=== PATIENT | female | born 1965 | race Hispanic/Latino ===

== ENCOUNTER 2019-06-23 15:24 | Emergency (ER) | payer OTHER ==
[2019-06-23] MEDS ORDERED: SODIUM CHLORIDE 0.9% 1000ML 1,000 ML IV ONE (16:15)
[2019-06-23] MEDS ORDERED: DiphenhydrAMINE HCL 50 MG/ML VIAL ONE (16:15)
[2019-06-23 16:19] LABS: BASOPHILS % (AUTO) 0.7 % (0.0-5.0); EOSINOPHILS % (AUTO) 1.9 % (0.0-8.0); HEMATOCRIT 37.6 % (36-48); LYMPHOCYTES % (AUTO) 14.8 % (21.0-51.0); MEAN CORPUSCULAR HEMOGLOBIN 28.2 pg (27.0-33.0); MEAN CORPUSCULAR HGB CONC 33.1 g/dL (32.0-36.0); MEAN CORPUSCULAR VOLUME 85.2 fL (79-99); MONOCYTES % (AUTO) 5.5 % (3.0-13.0); NEUTROPHILS % (AUTO) 77.1 % (40.0-77.0); PLATELET COUNT (AUTO) 215 K/uL (130-400); RED BLOOD CELL COUNT(AUTO) 4.41 MIL/uL (4.00-5.50); RED CELL DISTRIBUTION WIDTH 13.7 % (11.0-15.5); WHITE BLOOD COUNT (AUTO) 8.1 K/uL (4.8-10.8)
[2019-06-23 16:29] LABS: CREATININE 1.3 mg/dL (0.5-1.5); POTASSIUM 4.4 mmol/L (3.5-5.1)
[2019-06-23] MEDS ORDERED: INSULIN HUMULIN R 100 UNIT/ML 3ML ONE (16:29)
[2019-06-23 16:33] LABS: BILIRUBIN,TOTAL 0.4 mg/dL (0.2-1.0); TOTAL PROTEIN, SERUM 7.7 g/dL (6.0-8.3)
[2019-06-23 16:33] LABS: APPEARANCE,URINE Cloudy (CLEAR); BILIRUBIN,URINE Negative (NEGATIVE); COLOR,URINE Yellow (YELLOW); GLUCOSE, URINE (UA) >=1000 mg/dL (NEGATIVE); KETONES,URINE Negative (NEGATIVE); LEUKOCYTE ESTERASE ,URINE Negative (NEGATIVE); NITRATE,URINE Positive (NEGATIVE); OCCULT BLOOD,URINE Small (NEGATIVE); PH,URINE 5.5 (5.0-8.0); PROTEIN,URINE 300 mg/dL (NEGATIVE); UROBILINOGEN,URINE 0.2 mg/dL (0.2-1.0)
[2019-06-23 16:50] LABS: BACTERIA,URINE Few /HPF (None Seen); SQUAMOUS EPITHELIAL CELL,UR Few /HPF (0-2); WBC,URINE 0-1 /HPF (0-1); YEAST,URINE BUDDING Few /HPF (None Seen)
== END 2019-06-23 18:45 | disposition home or self-care (01) ==
LOC: EDH 15:24
DX: L95.9 Vasculitis limited to the skin, unspecified (principal); T36.0X5A Adverse effect of penicillins, initial encounter; L98.498 Non-pressure chronic ulcer of skin of other sites with other specified severity; E11.65 Type 2 diabetes mellitus with hyperglycemia; I10 Essential (primary) hypertension; Z88.1 Allergy status to other antibiotic agents; Y92.89 Other specified places as the place of occurrence of the external cause
CPT/HCPCS: 36415; 80053; 81001; 82948 ×2; 85025; 86592; 87040 ×2; 96361; 96374; 96375; 99284; J1200; J1815; J7030

== ENCOUNTER 2019-06-29 22:38 | Emergency (ER) | payer OTHER ==
[2019-06-29 23:35] LABS: BASOPHILS % (AUTO) 0.2 % (0.0-5.0); EOSINOPHILS % (AUTO) 1.8 % (0.0-8.0); HEMATOCRIT 35.2 % (36-48); LYMPHOCYTES % (AUTO) 20.1 % (21.0-51.0); MEAN CORPUSCULAR HEMOGLOBIN 27.6 pg (27.0-33.0); MEAN CORPUSCULAR HGB CONC 32.1 g/dL (32.0-36.0); MEAN CORPUSCULAR VOLUME 86.1 fL (79-99); MONOCYTES % (AUTO) 5.2 % (3.0-13.0); NEUTROPHILS % (AUTO) 72.4 % (40.0-77.0); PLATELET COUNT (AUTO) 248 K/uL (130-400); RED BLOOD CELL COUNT(AUTO) 4.09 MIL/uL (4.00-5.50); RED CELL DISTRIBUTION WIDTH 13.2 % (11.0-15.5); WHITE BLOOD COUNT (AUTO) 10.3 K/uL (4.8-10.8)
[2019-06-29 23:45] LABS: CREATININE 2.5 mg/dL (0.5-1.5); POTASSIUM 4.1 mmol/L (3.5-5.1)
[2019-06-29 23:49] LABS: ALBUMIN 2.7 g/dL (3.5-5.0); BILIRUBIN,TOTAL 0.2 mg/dL (0.2-1.0)
[2019-06-30] MEDS ORDERED: SODIUM CHLORIDE 0.9% 1000ML 1,000 ML IV ONE (00:40)
== END 2019-06-30 01:49 | disposition home or self-care (01) ==
LOC: EDH 22:38 → EEVIPCON 22:38 → EDH 06-30 01:49
DX: K52.9 Noninfective gastroenteritis and colitis, unspecified (principal); K62.5 Hemorrhage of anus and rectum; E11.9 Type 2 diabetes mellitus without complications; I10 Essential (primary) hypertension; Z88.1 Allergy status to other antibiotic agents; Z98.890 Other specified postprocedural states
CPT/HCPCS: 36415; 74176; 80053; 83690; 85025; 93005; 96360; 99285; J7030

== ENCOUNTER 2020-03-01 20:40 | Inpatient (IN) | payer OTHER ==
[~2020-03-01] VITALS: Ht 162.6 cm; Wt 151.8 kg
[2020-03-01 22:23] LABS: BASOPHILS % (AUTO) 0.2 % (0.0-5.0); HEMATOCRIT 26.9 % (36-48); LYMPHOCYTES % (AUTO) 2.3 % (21.0-51.0); MEAN CORPUSCULAR HGB CONC 32.7 g/dL (32.0-36.0); MEAN CORPUSCULAR VOLUME 79.6 fL (79-99); MONOCYTES % (AUTO) 2.7 % (3.0-13.0); NEUTROPHILS % (AUTO) 91.3 % (40.0-77.0); PLATELET COUNT (AUTO) 494 K/uL (130-400); RED BLOOD CELL COUNT(AUTO) 3.38 MIL/uL (4.00-5.50); RED CELL DISTRIBUTION WIDTH 15.2 % (11.0-15.5)
[2020-03-01 22:27] LABS: INR 1.21 (0.85-1.15); PARTIAL THROMBOPLASTIN TIME 37.1 SEC (26.3-35.5)
[2020-03-01 22:28] LABS: WHITE BLOOD COUNT (AUTO) 41.9 K/uL (4.8-10.8)
[2020-03-01] MEDS ORDERED: CLINDAMYCIN 900 MG/D5% WATER 50 ML IV ONE (22:30)
[2020-03-01 22:35] LABS: APPEARANCE,URINE CLOUDY (CLEAR); BILIRUBIN,URINE SMALL (NEGATIVE); COLOR,URINE YELLOW (YELLOW); GLUCOSE, URINE (UA) 500 mg/dL (NEGATIVE); KETONES,URINE 5 mg/dL (NEGATIVE); LEUKOCYTE ESTERASE ,URINE TRACE (NEGATIVE); NITRATE,URINE NEGATIVE (NEGATIVE); OCCULT BLOOD,URINE MODERATE (NEGATIVE); PH,URINE 5.5 (5.0-8.0); PROTEIN,URINE >=300 mg/dL (NEGATIVE)
[2020-03-01 22:46] LABS: BACTERIA,URINE Moderate /HPF (None Seen)
[2020-03-01 22:47] LABS: AMORPHOUS SEDIMENT,UR Few /LPF (None Seen); SQUAMOUS EPITHELIAL CELL,UR Few /HPF (0-2)
[2020-03-01 22:49] LABS: ALANINE AMINOTRANSFERASE 17 U/L (12-78); ASPARTATE AMINOTRANSFERASE 26 U/L (10-37); BILIRUBIN,TOTAL 0.7 mg/dL (0.2-1.0); CARBON DIOXIDE 19 mmol/L (21-32); CHLORIDE 96 mmol/L (101-111); CREATINE KINASE, TOTAL 59 U/L (21-232); CREATININE 4.2 mg/dL (0.5-1.5); GLOMERULAR FILTR. RATE CALC 12 mL/min (>60); GLUCOSE,RANDOM 283 mg/dL (70-105); MYOGLOBIN 214 ng/mL (10-92); POTASSIUM 4.1 mmol/L (3.5-5.1); SODIUM SERUM 128 mmol/L (136-145); TOTAL PROTEIN, SERUM 7.3 g/dL (6.0-8.3); TROPONIN I < 0.04 ng/mL (0.00-0.06)
[2020-03-01 22:51] LABS: UREA NITROGEN, BLOOD 76 mg/dL (7-18)
[2020-03-01 22:52] LABS: BAND NEUTROPHILS % (MANUAL) 6 % (0-2); LYMPHOCYTES % (MANUAL) 2 % (22-44); MAN.DIFF COMMENT-IMPRESSION MANUAL DIFFERENTIAL; MONOCYTES % (MANUAL) 2 % (2-9); SEGMENTED NEUTROPHILS % 90 % (40-70)
[2020-03-01 22:54] LABS: PLATELET MORPHOLOGY COMMENT PLT CLUMPS PRESENT
[2020-03-01] MEDS ORDERED: MORPHINE SULFATE 4 MG/1ML SYG ONE (23:06)
[2020-03-01] MEDS ORDERED: ONDANSETRON HCL 4 MG/2 ML VIAL ONE (23:06)
[2020-03-01] MEDS ORDERED: CEFTRIAXONE SODIUM 2 GM VIAL ONE (23:16)
[2020-03-01] MEDS ORDERED: TETANUS/DIPHTHERIA TOXOID [ADULT] 0.5 ML VIAL IM ONE (23:16)
[2020-03-01] MEDS ORDERED: SODIUM CHLORIDE 0.9% 500ML 500 ML IV PRN (23:30)
[2020-03-01] MEDS ORDERED: ONDANSETRON HCL 4 MG/2 ML VIAL IVP PRN (23:30)
[2020-03-01] MEDS ORDERED: DOCUSATE SODIUM 100 MG CAP PO PRN (23:30)
[2020-03-01] MEDS: HEPARIN SODIUM 5000UNIT/ML 1ML VIAL SQ SCH (23:30)
[2020-03-01] MEDS ORDERED: LACTULOSE 20 GM/30 ML UDCUP PO PRN (23:30)
[2020-03-01] MEDS ORDERED: HYDRALAZINE HCL 20 MG/ML VIAL IV PRN (23:30)
[2020-03-01] MEDS ORDERED: ACETAMINOPHEN 325 MG TAB PO PRN (23:30)
[2020-03-01] MEDS ORDERED: MORPHINE SULFATE 2 MG/ML 1ML SYG IVP PRN (23:30)
[2020-03-02] VITALS (15 sets, daily range): BP systolic 100–141; BP diastolic 36–88
[2020-03-02] MEDS ORDERED: MEROPENEM 1 GM VIAL ONE (00:04)
[2020-03-02] MEDS ORDERED: DiphenhydrAMINE HCL 50 MG/ML VIAL ONE (00:16)
[2020-03-02 00:26] LABS: ABG BASE EXCESS -8.7 mmol/L (-2.0-3.0); ABG HCO3 15.6 mmol/L (21.0-28.0); ABG PCO2 30 mmHg (32-45)
[2020-03-02] MEDS: MEROPENEM 500 MG VIAL IVP SCH ×2 (01:00→12:57)
[2020-03-02 04:40] LABS: BASOPHILS % (AUTO) 0.2 % (0.0-5.0); EOSINOPHILS % (AUTO) 0.1 % (0.0-8.0); HEMATOCRIT 25.6 % (36-48); LYMPHOCYTES % (AUTO) 3.1 % (21.0-51.0); MEAN CORPUSCULAR HEMOGLOBIN 26.1 pg (27.0-33.0); MEAN CORPUSCULAR HGB CONC 32.8 g/dL (32.0-36.0); MEAN CORPUSCULAR VOLUME 79.5 fL (79-99); MONOCYTES % (AUTO) 3.8 % (3.0-13.0); NEUTROPHILS % (AUTO) 87.8 % (40.0-77.0); PLATELET COUNT (AUTO) 455 K/uL (130-400); RED BLOOD CELL COUNT(AUTO) 3.22 MIL/uL (4.00-5.50); RED CELL DISTRIBUTION WIDTH 15.3 % (11.0-15.5)
[2020-03-02 04:45] LABS: WHITE BLOOD COUNT (AUTO) 43.2 K/uL (4.8-10.8)
[2020-03-02 05:08] LABS: MAGNESIUM 1.8 mg/dL (1.80-2.40); PHOSPHORUS 5.4 mg/dL (2.5-4.9)
--- NOTE | 2020-03-02 08:05 | NUR ---
RECEIVED PT FROM ER VIA STRETCHER AND PT WAS ADVISED OF POSSIBLE FURTHER PROCEDURES AND WAS ADVISED OF HAVING TO CONNECT HER TO MONITOR. PT VERBALIZED UNDERSTANDING.
[2020-03-02] MEDS: FAMOTIDINE 20MG TAB 20 MG TAB PO SCH ×2 (09:37→09:40)
[2020-03-02] MEDS: CLINDAMYCIN 900 MG/D5% WATER 50 ML IV SCH ×4 (09:40→23:42)
[2020-03-02] MEDS: HEPARIN SODIUM 5000UNIT/ML 1ML VIAL SQ SCH ×2 (09:42→20:11)
[2020-03-02] MEDS: LINEZOLID 600 MG/ISO-OSM 300 ML IV SCH (13:00)
[2020-03-02] MEDS ORDERED: CHOL200026 PO (14:33)
[2020-03-02] MEDS ORDERED: METF-446 PO (14:37)
[2020-03-02] MEDS ORDERED: GLIP10TA9 PO (14:37)
[2020-03-02] MEDS ORDERED: METO25TA6 PO (14:37)
[2020-03-02] MEDS ORDERED: LEVO50 PO (14:41)
[2020-03-02] MEDS ORDERED: HYDR12.54 PO (14:41)
[2020-03-02 16:39] LABS: CREATINE KINASE, TOTAL 30 U/L (21-232); MYOGLOBIN 143 ng/mL (10-92); TROPONIN I < 0.04 ng/mL (0.00-0.06)
--- NOTE | 2020-03-02 17:00 | NUR ---
PT REPORT GIVEN TO YASMANI ON 3RD FLOOR AND WILL TRANSFER PT AFTER PICC LINE PLACEMENT.
--- NOTE | 2020-03-02 19:45 | NUR ---
ASSESS RECEIVED PT FROM AM SHIFT PENDING SX TONIGHT. PRE-OP PAPERS DONE AND PLACED IN CHART. SHIFT ASSESSMENT DONE, PLEASE REFER TO CHART. CONSENT FOR RT BKA POSSIBLE AKA SIGNED BY PT AND WITNESSED BY ASSISTANT SERVICE MANAGER. OR STAFF IN TO TAKE PT DOWN FOR SX. Addendum: 03/02/20 at 2118 by MIKE RAMOS RN RN Amended: Links added.
[2020-03-02] MEDS ORDERED: MIDAZOLAM HCL 1 MG/ML 2ML VIAL ONE (20:15)
[2020-03-02] MEDS ORDERED: PROPOFOL 10 MG/ML 20ML VIAL IV ONE (20:15)
[2020-03-02] MEDS ORDERED: DEXAMETHASONE SOD PHOSPHATE 10MG/ML 1ML VIAL ONE (20:15)
[2020-03-02] MEDS ORDERED: LIDOCAINE PF 2% 5ML ABBOJECT ONE (20:15)
[2020-03-02] MEDS ORDERED: SUCCINYLCHOLINE 200MG/10ML SYR ONE (20:15)
[2020-03-02] MEDS ORDERED: ONDANSETRON HCL 4 MG/2 ML VIAL ONE (20:16)
[2020-03-02] MEDS ORDERED: FENTANYL CITRATE PF 50 MCG/1 ML 2ML VIAL ONE ×2 (20:16→21:53)
[2020-03-02] MEDS ORDERED: ROCURONIUM 10MG/1ML SYR 10 MG/ML ML ONE (20:21)
[2020-03-02] MEDS ORDERED: ROPIVACAINE 0.5% 5MG/ML 30ML IJ ONE (20:36)
[2020-03-02] MEDS ORDERED: ALBUMIN (HUMAN) 5% 250 ML IV ONE (21:44)
[2020-03-02] MEDS ORDERED: SODIUM BICARB 8.4% 50ML SYRINGE ONE (21:44)
[2020-03-02] MEDS ORDERED: GLYCOPYRROLATE 1 MG/5 ML SYRINGE ONE (22:51)
[2020-03-02] MEDS ORDERED: NEOSTIGMINE 5MG/5ML SYR IV ONE (22:51)
[2020-03-02] MEDS ORDERED: SUGAMMADEX SODIUM 200 MG/2 ML VIAL IV ONE (23:09)
[2020-03-02] MEDS ORDERED: ESMOLOL HCL 10 MG/ML 10 ML VIAL ONE (23:20)
[2020-03-02] MEDS: SODIUM CHLORIDE 0.9% 1000ML 1,000 ML IV SCH (23:30)
[2020-03-03] VITALS (16 sets, daily range): BP systolic 100–162; BP diastolic 45–80
--- NOTE | 2020-03-03 00:15 | NUR ---
BACK PT BACK IN ROOM. PT IS AAOX3. DENIES ANY PAINS AT THIS TIME. POST OP ORDERS REVIEWED WITH NAVARN. DRESSING TO RT LOWER EXTREMITY DRY AND INTACT. PLACED PT ON O2 AT 2LPM VIA NC. STARTED ON POST OP V/S, STABLE. DUE IV MEDS HUNG. RE-POSITIONED PT IN BED COMFORTABLY WITH HOB ELEVATED. PROVIDED SNACKS REQUESTED, ATE WITH APPETITE. IN FOR MORE CARE AND MANAGEMENT. WILL MONITOR CLOSELY.
[2020-03-03] MEDS: LINEZOLID 600 MG/ISO-OSM 300 ML IV SCH ×2 (00:28→12:19)
[2020-03-03] MEDS: MEROPENEM 500 MG VIAL IVP SCH ×2 (00:28→12:17)
[2020-03-03] MEDS ORDERED: HYDROMORPHONE HCL 2 MG/ML VIAL IVP PRN (00:30)
--- NOTE | 2020-03-03 02:00 | NUR ---
ROUNDS PT RESTING WELL, SLEPT AT INTERVALS. POST OP V/S STABLE. NO DISTRESS NOTED. WILL CONTINUE TO MONITOR. CALL LIGHT WITHIN REACH.
[2020-03-03 04:59] LABS: BASOPHILS % (AUTO) 0.2 % (0.0-5.0); EOSINOPHILS % (AUTO) 0.1 % (0.0-8.0); HEMATOCRIT 22.9 % (36-48); LYMPHOCYTES % (AUTO) 4.4 % (21.0-51.0); MEAN CORPUSCULAR HEMOGLOBIN 26.1 pg (27.0-33.0); MEAN CORPUSCULAR HGB CONC 32.8 g/dL (32.0-36.0); MEAN CORPUSCULAR VOLUME 79.8 fL (79-99); MONOCYTES % (AUTO) 3.3 % (3.0-13.0); NEUTROPHILS % (AUTO) 88.7 % (40.0-77.0); PLATELET COUNT (AUTO) 388 K/uL (130-400); RED BLOOD CELL COUNT(AUTO) 2.87 MIL/uL (4.00-5.50); RED CELL DISTRIBUTION WIDTH 15.6 % (11.0-15.5)
[2020-03-03 05:09] LABS: WHITE BLOOD COUNT (AUTO) 32.9 K/uL (4.8-10.8)
[2020-03-03 05:19] LABS: ALBUMIN 0.9 g/dL (3.5-5.0); CREATININE 3.6 mg/dL (0.5-1.5); PHOSPHORUS 5.7 mg/dL (2.5-4.9); POTASSIUM 3.9 mmol/L (3.5-5.1)
[2020-03-03 05:20] LABS: HEMOGLOBIN A1C 8.9 % (4.0-6.0)
--- NOTE | 2020-03-03 05:20 | NUR ---
PAIN PT REQUESTED TO BE RE-POSITIONED SEVERAL TIMES BUT SEEM NOT TO BE COMFORTABLE IN BED NO MATTER HOW SHE IS POSITIONED.PT COMPLAINTS OF ROOM BEING HOT BUT TEMPERATURE IN ROOM IS COOL AT 69. CLAIMS OF POST OP PAINS. MEDICATED WITH MORPHINE IV. BLOOD SUGAR CHECKED BY PCP =[id number]. NO ANTI DIABETIC MEDS ORDERED. YENNIFER DICKENS NP DETAILER [employer] FOR HOSPITALIST AND INFORMED OF ELEVATED BLOOD SUGAR. STATED SHE WILL PLACE ORDER FOR INSULIN. WILL MEDICATE PT.
[2020-03-03] MEDS: MORPHINE SULFATE 4 MG/1ML SYG IVP PRN (05:27)
--- NOTE | 2020-03-03 05:40 | NUR ---
CALL PT'S BLOOD [phone]. NO HYPERGLYCEMIA PROTOCOL ORDERED. PAGED CHRISSIE, HOSPITALIST VISITING PROFESSOR, VIA ANSWERING SERVICE. CHRISSIE CALLED BACK AND REFERRED ELEVATED BLOOD SUGAR. NEW ORDERS GIVEN, PLEASE REFER TO CPOE. WILL MEDICATE PT.
[2020-03-03] MEDS ORDERED: INSULIN HUMULIN R 100 UNIT/ML 3ML SQ SCH (07:30)
[2020-03-03] MEDS: GABAPENTIN 300 MG CAPSULE PO SCH ×2 (10:13→19:48)
[2020-03-03] MEDS: CLINDAMYCIN 900 MG/D5% WATER 50 ML IV SCH ×2 (10:15→16:15)
[2020-03-03] MEDS: HEPARIN SODIUM 5000UNIT/ML 1ML VIAL SQ SCH ×2 (10:37→19:52)
[2020-03-03] MEDS: INSULIN GLARGINE 100 UNITS/ML 10 ML VIAL SQ SCH ×2 (11:00→20:40)
[2020-03-03] MEDS: INSULIN HUMULIN R 100 UNIT/ML 3ML SQ SCH ×5 (11:30→20:41)
--- NOTE | 2020-03-03 12:40 | NUR ---
CM NOTE/IA UNSUCCESSFUL IA NOT COMPLETED, BUSY SIGNAL HEARD WHEN NEXT OF KIN CALLED. CM TO FOLLOW UP. Addendum: 03/03/20 at 1804 by EWELINA GRULLON RN CM Amended: Links added.
[2020-03-03] MEDS: SODIUM CHLORIDE 0.9% 1000ML 1,000 ML IV SCH (19:49)
[2020-03-03] MEDS: METOPROLOL TARTRATE 25 MG TAB PO SCH (19:49)
--- NOTE | 2020-03-03 19:55 | NUR ---
MEDS SHIFT ASSESSMENT DONE, PLEASE REFER TO CHART. PT IS EATING HER DINNER, WITH GOOD APPETITE. DUE MEDS ADMINISTERED, TOLERATED WELL. CALL LIGHT WITHIN REACH. WILL MONITOR PT. Addendum: 03/04/20 at 0157 by MIKE RAMOS RN RN Amended: Links added.
[2020-03-04] VITALS: BP 130/66
[2020-03-04] MEDS: LINEZOLID 600 MG/ISO-OSM 300 ML IV SCH ×3 (00:22→23:20)
[2020-03-04] MEDS: CLINDAMYCIN 900 MG/D5% WATER 50 ML IV SCH ×4 (00:22→23:20)
[2020-03-04] MEDS: MEROPENEM 500 MG VIAL IVP SCH ×3 (00:22→23:20)
--- NOTE | 2020-03-04 02:00 | NUR ---
ROUNDS PT RESTING WELL, FAIRLY ASLEEP. NO DISTRESS NOTED. KEPT UNDISTURBED FOR NOW. WILL MONITOR CLOSELY. CALL LIGHT WITHIN REACH.
[2020-03-04 04:00] VITALS: BP 130/73
--- NOTE | 2020-03-04 04:20 | NUR ---
DRAW BLOOD DRAWN FROM PICC LINE, SENT TO LAB FOR ANALYSIS. BOTH PORTS FLUSHES WELL WITH GOOD BLOOD RETURN. KEPT RESTED AND COMFORTABLE IN BED. CALL LIGHT WITHIN REACH.
[2020-03-04 04:32] LABS: BASOPHILS % (AUTO) 0.2 % (0.0-5.0); EOSINOPHILS % (AUTO) 0.8 % (0.0-8.0); HEMATOCRIT 23.5 % (36-48); LYMPHOCYTES % (AUTO) 9.8 % (21.0-51.0); MEAN CORPUSCULAR HEMOGLOBIN 26.1 pg (27.0-33.0); MEAN CORPUSCULAR HGB CONC 32.3 g/dL (32.0-36.0); MEAN CORPUSCULAR VOLUME 80.8 fL (79-99); MONOCYTES % (AUTO) 5.3 % (3.0-13.0); NEUTROPHILS % (AUTO) 79.6 % (40.0-77.0); PLATELET COUNT (AUTO) 364 K/uL (130-400); RED BLOOD CELL COUNT(AUTO) 2.91 MIL/uL (4.00-5.50); RED CELL DISTRIBUTION WIDTH 15.9 % (11.0-15.5); WHITE BLOOD COUNT (AUTO) 18.5 K/uL (4.8-10.8)
[2020-03-04 05:18] LABS: ALBUMIN 0.8 g/dL (3.5-5.0); BILIRUBIN,TOTAL 0.2 mg/dL (0.2-1.0); CREATININE 3.2 mg/dL (0.5-1.5); PHOSPHORUS 5.6 mg/dL (2.5-4.9); POTASSIUM 3.6 mmol/L (3.5-5.1); TOTAL PROTEIN, SERUM 6.2 g/dL (6.0-8.3)
[2020-03-04] MEDS: INSULIN HUMULIN R 100 UNIT/ML 3ML SQ SCH ×7 (06:21→20:45)
[2020-03-04 08:00] VITALS: BP 124/65
[2020-03-04] MEDS: FAMOTIDINE 20MG TAB 20 MG TAB PO SCH (09:00)
[2020-03-04] MEDS: METOPROLOL TARTRATE 25 MG TAB PO SCH ×2 (10:27→20:51)
[2020-03-04] MEDS: GABAPENTIN 300 MG CAPSULE PO SCH ×2 (10:27→20:51)
[2020-03-04] MEDS: HEPARIN SODIUM 5000UNIT/ML 1ML VIAL SQ SCH ×2 (10:49→20:49)
[2020-03-04 12:04] VITALS: BP_SYST 101; BP_SYST 102; BP_DIAS 74; BP_DIAS 83
--- NOTE | 2020-03-04 14:34 | NUR ---
RD NOTIFICATION Pt admitted with Sepsis and gangrene. Renal Non-Dialysis diet order in place. Pt at 100% Breakfast this AM. LBM 03/01/20. DM Nephropathy. Obesity Class III (BMI 57.5). Monitored labs: BUN 70, Cr 3.2, GFR 16, P 5.6, Alb 0.8. Recommend modify to 90gm CCD as medically feasible Recommend Nepro BID Recommend 500mg Vitamin C (QD), 220mg ZincSO4 (QD) RD to continue to monitor, Please notify as additional nutrition concerns arise. Thank you. Addendum: 03/04/20 at [address] Amended: Links added.
[2020-03-04 16:00] VITALS: BP 145/54
--- NOTE | 2020-03-04 16:00 | NUR ---
CM NOTE/IA MEET WITH PATIENT IN ROOM. PATIENT SEEMS UPSET, GIVING SHORT ANSWERS, TURNING AWAY FROM ME WHEN WE TALK, MANNERISMS SEEM ANGRY. WHEN ASKED IF I COULD VERIFY SHE HAD A NEXT OF KIN, SHE SAID THERE WAS "NO ONE AND SHE DIDNT NEED ANYONES HELP ANYWAY". PATIENT IS SELF PAY, LIVES ALONE AND OBESE AND HAS NO DME AT HOME, RECENT ABOVE KNEE AMPUTATION THIS ADMISSION. WHEN ASKED IF SHE HAD HOME HEALTH OR PROVIDER SERVICES OR COMMUNITY RESOURCES IN USE, SHE REPLIED " I TOLD YOU I DONT NEED ANYTHING, I DONT NEED ALL THAT STUFF". THEN PROCEEDED TO ASK ME IF SHE WOULD BE GETTING DME FROM HOSPITAL. I PROCEED TO TELL HER THAT THE REASON I WAS THERE AND ASKING QUESTIONS WAS TO ASSES NEEDS SEEING SHE JUST HAD AN AKA. PATIENT ROLLED HER EYES AND TURNED HEAD AWAY FROM ME. I ASKED HER IF SHE HAD HAD PHYSICAL THERAPY, THAT RECOMMENDATIONS WOULD COME FROM PT AND THEN I WOULD WORK WITH MD AND HER TO GET HER DME IF POSSIBLE. I ASKED TOMAS GREGORIO, PRIMARY NURSE, IS SHE PT HAD BEEN ORDERED. ORDERED BY DR. CARRILLO. I THEN PROCEEDED TO TELL PATIENT PT HAD BEEN ORDERED AND WE WOULD WAIT FOR RECOMMENDATIONS AND I WOULD SEE HER AGAIN AT LATER TIME. Addendum: 03/05/20 at 0916 by EWELINA GRULLON RN CM Amended: Links added.
[2020-03-04 20:16] VITALS: BP 131/54
[2020-03-04] MEDS: INSULIN GLARGINE 100 UNITS/ML 10 ML VIAL SQ SCH (20:51)
[2020-03-04] MEDS: MORPHINE SULFATE 4 MG/1ML SYG IVP PRN (21:53)
[2020-03-04] MEDS: MAGNESIUM 2GM PREMIX 50ML 50 ML IV PRN (23:56)
[2020-03-05 00:20] VITALS: BP 117/58
[2020-03-05] MEDS: SODIUM CHLORIDE 0.9% 1000ML 1,000 ML IV SCH (03:28)
[2020-03-05 04:20] VITALS: BP 127/60
[2020-03-05 04:48] LABS: BASOPHILS % (AUTO) 0.2 % (0.0-5.0); EOSINOPHILS % (AUTO) 1.5 % (0.0-8.0); HEMATOCRIT 23.9 % (36-48); LYMPHOCYTES % (AUTO) 16.4 % (21.0-51.0); MEAN CORPUSCULAR HGB CONC 31.4 g/dL (32.0-36.0); MONOCYTES % (AUTO) 6.4 % (3.0-13.0); NEUTROPHILS % (AUTO) 68.9 % (40.0-77.0); PLATELET COUNT (AUTO) 340 K/uL (130-400); RED BLOOD CELL COUNT(AUTO) 2.88 MIL/uL (4.00-5.50); RED CELL DISTRIBUTION WIDTH 16.1 % (11.0-15.5); WHITE BLOOD COUNT (AUTO) 12.6 K/uL (4.8-10.8)
[2020-03-05 05:07] LABS: ALBUMIN 0.8 g/dL (3.5-5.0); BILIRUBIN,TOTAL 0.1 mg/dL (0.2-1.0); CREATININE 2.8 mg/dL (0.5-1.5); MAGNESIUM 1.7 mg/dL (1.80-2.40); POTASSIUM 3.9 mmol/L (3.5-5.1); TOTAL PROTEIN, SERUM 6.2 g/dL (6.0-8.3)
[2020-03-05] MEDS: MAGNESIUM 2GM PREMIX 50ML 50 ML IV PRN (05:55)
[2020-03-05] MEDS: CLINDAMYCIN 900 MG/D5% WATER 50 ML IV SCH (05:55)
[2020-03-05] MEDS: INSULIN HUMULIN R 100 UNIT/ML 3ML SQ SCH ×7 (06:13→21:01)
[2020-03-05 08:00] VITALS: BP 124/61
[2020-03-05] MEDS: GABAPENTIN 300 MG CAPSULE PO SCH ×2 (09:00→21:00)
[2020-03-05] MEDS: FAMOTIDINE 20MG TAB 20 MG TAB PO SCH (09:00)
[2020-03-05] MEDS: METOPROLOL TARTRATE 25 MG TAB PO SCH ×2 (10:34→20:59)
[2020-03-05] MEDS: HEPARIN SODIUM 5000UNIT/ML 1ML VIAL SQ SCH ×2 (10:45→21:02)
[2020-03-05 12:00] VITALS: BP 116/96
--- NOTE | 2020-03-05 14:26 | NUR ---
Patient was seen at bedside this AM and Physical Therapy Evaluation completed.Patient is s/p Right AKA demonstrates weakness to LLE and tiera are intact to right residual limb,per BRYANNA Costa and Dr. Holly to let Nursing to perform dressing on a daily basis w/ xeroform gauze, 4x4, kerlex and wrap w/ shankar bandage using paper tape.Notified LEROY Guerrero.Patient will be needing bariatric wheelchair, transfer board, bariatric walker and 3-1 commode.Recommending skilled placement to help assist patient and improve her functional mobility.Patient is high risk of falling.Phantom sensation to right residual limb.Educated patient to continue w/ isometric strengthening exercises to LLE and right residual limb.Patient voicing out that she prefers to go home.Will continue with current Physical Therapy tx plan as tolerated.At this time patient requires maximum assistance from supine to sit at the edge of the bed x 2 person. Addendum: 03/05/20 at 1435 by DON GALLARDO, PT PT Amended: Links added.
--- NOTE | 2020-03-05 15:16 | NUR ---
SPOKE WITH GEORGETTE AT [facility] REGARDING GERIATRIC BED FOR PT. STATED HAD ANOTHER BED BUT RECOMMENCED [facility] GERIATRIC BED WHICH WAS INITIALLY ORDERED. GEORGETTE STATED THE BED WOULD BE IN TOMORROW AND IF NOT WOULD CALL AND BRING THE OTHER BED. CHARGE NURSE ISAC MADE AWARE
[2020-03-05 16:00] VITALS: BP 143/62
[2020-03-05 20:20] VITALS: BP 157/58
[2020-03-05] MEDS: INSULIN GLARGINE 100 UNITS/ML 10 ML VIAL SQ SCH (21:02)
[2020-03-06 00:24] VITALS: BP 132/57
[2020-03-06] MEDS: ACETAMINOPHEN-CODEINE 300/30MG TAB PO PRN ×3 (01:03→22:02)
[2020-03-06 04:24] VITALS: BP 139/55
[2020-03-06 05:16] LABS: BASOPHILS % (AUTO) 0.3 % (0.0-5.0); EOSINOPHILS % (AUTO) 2.2 % (0.0-8.0); HEMATOCRIT 23.7 % (36-48); LYMPHOCYTES % (AUTO) 18.3 % (21.0-51.0); MEAN CORPUSCULAR HEMOGLOBIN 25.8 pg (27.0-33.0); MEAN CORPUSCULAR HGB CONC 30.8 g/dL (32.0-36.0); MEAN CORPUSCULAR VOLUME 83.7 fL (79-99); MONOCYTES % (AUTO) 7.6 % (3.0-13.0); NEUTROPHILS % (AUTO) 65.4 % (40.0-77.0); PLATELET COUNT (AUTO) 295 K/uL (130-400); RED BLOOD CELL COUNT(AUTO) 2.83 MIL/uL (4.00-5.50); RED CELL DISTRIBUTION WIDTH 16.2 % (11.0-15.5)
[2020-03-06 05:47] LABS: ALBUMIN 0.9 g/dL (3.5-5.0); BILIRUBIN,TOTAL 0.1 mg/dL (0.2-1.0); CREATININE 2.2 mg/dL (0.5-1.5); MAGNESIUM 1.9 mg/dL (1.80-2.40); POTASSIUM 3.9 mmol/L (3.5-5.1); TOTAL PROTEIN, SERUM 6.1 g/dL (6.0-8.3)
[2020-03-06] MEDS: MAGNESIUM 2GM PREMIX 50ML 50 ML IV PRN (06:33)
[2020-03-06] MEDS: GLIPIZIDE 5 MG TABLET PO SCH (06:34)
[2020-03-06] MEDS: INSULIN HUMULIN R 100 UNIT/ML 3ML SQ SCH ×7 (06:35→20:48)
[2020-03-06 08:31] VITALS: BP 142/61
[2020-03-06] MEDS: GABAPENTIN 300 MG CAPSULE PO SCH ×3 (09:00→21:15)
[2020-03-06] MEDS: HEPARIN SODIUM 5000UNIT/ML 1ML VIAL SQ SCH ×2 (09:49→20:31)
[2020-03-06] MEDS: LEVOFLOXACIN 750 MG TABLET PO SCH (09:51)
[2020-03-06] MEDS: METOPROLOL TARTRATE 25 MG TAB PO SCH ×2 (09:51→21:15)
[2020-03-06] MEDS: FAMOTIDINE 20MG TAB 20 MG TAB PO SCH (09:52)
--- NOTE | 2020-03-06 10:00 | NUR ---
CM NOTE/SIDNEY [facility] MET WITH PATIENT IN ROOM TO DISCUSS DISCHARGE PLANNING. PER PATIENT, DOES NOT WANT HER INFORMATION OUT THERE FOR EVERYONE TO SEE. INFORMED PATIENT THAT WE OBTAIN CONSENT BEFORE ANYTHING IS SENT OUT. INFORMED PATIENT ABOUT PT RECOMMENDATIONS FOR SNF, IN HER CASE, THIS WOULD BE [facility] SHE IS UNINSURED. PER PATIENT, INTERESTED IN SNF BUT WOULD ULTIMATELY WANT TO GO HOME FIRST OPTION. PATIENT IS OBESE, LIVES ALONE, NO DME, AND RECENT AKA SURGERY. PER PT NOTES, PATIENT NEEDS ASSISTANCE TO GET OUT OF BED. INFORMED PATIENT THAT MD WILL WANT TO HAVE A SAFE DISCHARGE PLAN BEFORE A DISCHARGE ORDER IS GIVEN. PER PATIENT, ONLY WANTS HER INFORMATION GIVEN OUT IF [facility] WILL TAKE A [facility] CASE. JORDAN ANUSHKA, REP FROM [facility], AT THE MOMENT, DOES NOT HAVE [facility] BEDS. WILL INFORM PATIENT WELL PRIMAR NURSE, PONCHO GREGORIO. CM DIRECTOR, ABEL GONZALES RN, AWARE OF CASE.
[2020-03-06] MEDS: MORPHINE SULFATE 4 MG/1ML SYG IVP PRN (11:09)
[2020-03-06 12:00] VITALS: BP 141/71
--- NOTE | 2020-03-06 13:28 | NUR ---
Patient was transferred to different [facility] bed this PM and patient will be needing a overhead trapeze bar to be rented thru [facility].Notified Peg, RN,TRACE CLERK,Acting DON to take care of this overhead trapeze bar ERIBERTO. Addendum: 03/06/20 at 1332 by DON GALLARDO, PT PT Amended: Links added.
--- NOTE | 2020-03-06 15:30 | NUR ---
ATTEMPTED DCP ATTEMPTED TO TELL PATIENT GP DOES NOT HAVE [facility] BED, BUSY WITH NURSING STAFF. WILL COME BY AT LATER TIME.
[2020-03-06 16:00] VITALS: BP 151/68
--- NOTE | 2020-03-06 16:30 | NUR ---
ATTEMPTED DCP PATIENT ASLEEP IN ROOM, NOT ABLE TO DISCUSS [facility] NOT HAVING [facility]. CM TO FOLLOW UP.
[2020-03-06 20:00] VITALS: BP 143/60
[2020-03-06] MEDS: INSULIN GLARGINE 100 UNITS/ML 10 ML VIAL SQ SCH (21:20)
[2020-03-07] VITALS: BP 138/64
[2020-03-07 04:00] VITALS: BP 128/61
[2020-03-07] MEDS: ACETAMINOPHEN-CODEINE 300/30MG TAB PO PRN ×2 (06:41→20:20)
[2020-03-07 07:13] LABS: BASOPHILS % (AUTO) 0.3 % (0.0-5.0); EOSINOPHILS % (AUTO) 2.1 % (0.0-8.0); HEMATOCRIT 24.8 % (36-48); LYMPHOCYTES % (AUTO) 20.9 % (21.0-51.0); MEAN CORPUSCULAR HEMOGLOBIN 25.7 pg (27.0-33.0); MEAN CORPUSCULAR HGB CONC 30.6 g/dL (32.0-36.0); MEAN CORPUSCULAR VOLUME 83.8 fL (79-99); MONOCYTES % (AUTO) 7.3 % (3.0-13.0); NEUTROPHILS % (AUTO) 64.1 % (40.0-77.0); PLATELET COUNT (AUTO) 280 K/uL (130-400); RED BLOOD CELL COUNT(AUTO) 2.96 MIL/uL (4.00-5.50); RED CELL DISTRIBUTION WIDTH 16.1 % (11.0-15.5); WHITE BLOOD COUNT (AUTO) 9.5 K/uL (4.8-10.8)
[2020-03-07] MEDS: INSULIN HUMULIN R 100 UNIT/ML 3ML SQ SCH ×7 (07:14→20:24)
[2020-03-07] MEDS: GLIPIZIDE 5 MG TABLET PO SCH (07:21)
[2020-03-07 07:34] LABS: CREATININE 1.8 mg/dL (0.5-1.5); POTASSIUM 4.2 mmol/L (3.5-5.1)
[2020-03-07 08:00] VITALS: BP 146/47
[2020-03-07] MEDS: GABAPENTIN 300 MG CAPSULE PO SCH ×2 (09:00→20:20)
[2020-03-07] MEDS: METOPROLOL TARTRATE 25 MG TAB PO SCH ×2 (09:49→20:19)
[2020-03-07] MEDS: FAMOTIDINE 20MG TAB 20 MG TAB PO SCH (09:49)
[2020-03-07] MEDS: HEPARIN SODIUM 5000UNIT/ML 1ML VIAL SQ SCH ×2 (09:54→20:21)
[2020-03-07 11:00] VITALS: BP 134/65
[2020-03-07] MEDS ORDERED: GUAIFENESIN-DM 200/20 MG 10 ML PO PRN (14:15)
[2020-03-07 16:00] VITALS: BP_SYST 132; BP_SYST 159; BP_DIAS 62; BP_DIAS 93
[2020-03-07 18:49] LABS: PROTEIN,URINE RANDOM 280.6 mg/dL (0-11.9)
[2020-03-07 20:00] VITALS: BP 162/64
[2020-03-07] MEDS: INSULIN GLARGINE 100 UNITS/ML 10 ML VIAL SQ SCH (20:22)
--- NOTE | 2020-03-07 22:06 | NUR ---
PATIENT CONSTANTLY FUR DESIGNER LIGHT. NEEDS MET. PT REQUESTED TO BE RE-POSITIONED SEVERAL TIMES BUT SEEM NOT TO BE COMFORTABLE IN BED NO MATTER HOW SHE IS POSITIONED. PT COMPLAINTS OF ROOM BEING HOT BUT TEMPERATURE IN ROOM IS COOL AT 69. PATIENT SEEMS ANGRY AT TIMES AND REFUSED GABAPENTIN FOR THE NIGHT. REPOSITIONED FOR COMFORT. CALL LIGHT WITHIN REACH. WILL CONTINUE TO BE OBSERVED. Addendum: 03/07/20 at 2210 by LIV GRULLON RN RN Amended: Links added.
[2020-03-08] VITALS: BP 149/58
[2020-03-08 03:54] VITALS: BP 149/62
[2020-03-08] MEDS: ACETAMINOPHEN-CODEINE 300/30MG TAB PO PRN ×3 (04:29→20:52)
[2020-03-08 05:03] LABS: BASOPHILS % (AUTO) 0.2 % (0.0-5.0); EOSINOPHILS % (AUTO) 2.3 % (0.0-8.0); HEMATOCRIT 23.1 % (36-48); LYMPHOCYTES % (AUTO) 15.4 % (21.0-51.0); MEAN CORPUSCULAR HEMOGLOBIN 26.3 pg (27.0-33.0); MEAN CORPUSCULAR HGB CONC 30.7 g/dL (32.0-36.0); MEAN CORPUSCULAR VOLUME 85.6 fL (79-99); MONOCYTES % (AUTO) 6.6 % (3.0-13.0); NEUTROPHILS % (AUTO) 73.7 % (40.0-77.0); PLATELET COUNT (AUTO) 235 K/uL (130-400); RED CELL DISTRIBUTION WIDTH 16.3 % (11.0-15.5); WHITE BLOOD COUNT (AUTO) 9.5 K/uL (4.8-10.8)
[2020-03-08 05:12] LABS: CREATININE 1.5 mg/dL (0.5-1.5); POTASSIUM 4.1 mmol/L (3.5-5.1)
[2020-03-08] MEDS: INSULIN HUMULIN R 100 UNIT/ML 3ML SQ SCH ×7 (06:06→20:53)
[2020-03-08] MEDS: GLIPIZIDE 5 MG TABLET PO SCH (06:07)
[2020-03-08 08:12] VITALS: BP 145/71
[2020-03-08] MEDS: METOPROLOL TARTRATE 25 MG TAB PO SCH ×2 (08:35→20:46)
[2020-03-08] MEDS: FAMOTIDINE 20MG TAB 20 MG TAB PO SCH (08:35)
[2020-03-08] MEDS: GABAPENTIN 300 MG CAPSULE PO SCH ×2 (08:36→20:47)
[2020-03-08] MEDS: HEPARIN SODIUM 5000UNIT/ML 1ML VIAL SQ SCH ×2 (08:39→20:49)
--- NOTE | 2020-03-08 11:00 | NUR ---
DC Update: In this am to speak w pt. Informed her that [facility] this time does not have any quique beds avail. Asked pt if she would consent to be referred to any other SNF. Pt declined. She also declined referral to rehab stating "[place] is [place]". Pt states "i'll just go home and figure it out". Asked pt if she had any DME avail at home and she said No. Asked pt if she had any family, friends, neighbors, or druze lutheran avail to assist her at pr. As pt mentioned she was barely able to transfer w PT. Pt said she did not have any family, friends, neighbors or druze lutheran to help her. Pt states "well I am going to need a wc and walker". Informed pt that this was reason CM was asking regarding her support system. To see if any family/friends/neighbors had any equipment they might be able to donate to her. Asked pt if she had transportation home and she said she'll call someone. Offered to call and ask for pricing for a wc and walker, advised pt that since she did not have insurance she would have to pay out of pocket. CM and SW to follow up.
[2020-03-08 11:50] VITALS: BP 154/65
[2020-03-08] MEDS: LEVOFLOXACIN 750 MG TABLET PO SCH (13:00)
[2020-03-08 16:59] VITALS: BP 115/52
[2020-03-08 20:00] VITALS: BP 158/50
[2020-03-08] MEDS: INSULIN GLARGINE 100 UNITS/ML 10 ML VIAL SQ SCH (20:50)
[2020-03-09] VITALS: BP 164/62
--- NOTE | 2020-03-09 02:23 | NUR ---
PATIENT CONSTANTLY CLINICAL TRIAL COORDINATOR LIGHT, REQUESTING SPECIALITY BED TO BE DEFLATED. PATIENT STATES SHE FEELS BETTER AND IS NOT IN PAIN, RIGHT AKA STUMP HANGING DOWN AT SIDE OF BED. REDIRECTED PATIENT THAT THE PURPOSE OF THE BED IS TO HELP RELIEVE THE PRESSURE TO PREVENT PRESSURE SORES WHICH PATIENT ALREADY HAS, PATIENT STILL INSISTS TO DEFLATE THE BED. BED WAS DEFLATED BUT WAS ASKED TO TURN BACK ON SO SHE CAN LIFT HOB. WHEN DOING SO BED WILL INFLATE AUTOMATICALLY. PATIENT UPSET AT THIS TIME. NURSE STATED IF YOU DO NOT WANT THIS BED INFLATED PLEASE SIGN A REFUSAL OF TREATMENT SO BED CAN BE DEFLATED. PATIENT SIGNED REFUSAL OF TREATMENT. FALL PRECAUTIONS IN PLACE DUE TO POOR SAFETY AWARENESS. SIDE RAILS UP X4 CALL LIGHT WITHIN REACH. WILL CONTINUE TO BE OBSERVED. Addendum: 03/09/20 at 0229 by LIV GRULLON RN RN Amended: Links added.
[2020-03-09 03:45] VITALS: BP 143/65
[2020-03-09 04:45] LABS: BASOPHILS % (AUTO) 0.4 % (0.0-5.0); EOSINOPHILS % (AUTO) 2.3 % (0.0-8.0); HEMATOCRIT 22.4 % (36-48); MEAN CORPUSCULAR HEMOGLOBIN 26.1 pg (27.0-33.0); MEAN CORPUSCULAR HGB CONC 30.8 g/dL (32.0-36.0); MEAN CORPUSCULAR VOLUME 84.8 fL (79-99); MONOCYTES % (AUTO) 7.2 % (3.0-13.0); NEUTROPHILS % (AUTO) 71.2 % (40.0-77.0); PLATELET COUNT (AUTO) 196 K/uL (130-400); RED BLOOD CELL COUNT(AUTO) 2.64 MIL/uL (4.00-5.50); RED CELL DISTRIBUTION WIDTH 16.1 % (11.0-15.5)
[2020-03-09 04:57] LABS: CREATININE 1.3 mg/dL (0.5-1.5); POTASSIUM 4.2 mmol/L (3.5-5.1)
--- NOTE | 2020-03-09 05:12 | NUR ---
CRITICAL RESULTS [facility] 6.9. HOSPITALIST PAGED. RETURN CALL PENDING. Addendum: 03/09/20 at 0514 by LIV GRULLON RN RN Amended: Links added.
[2020-03-09] MEDS: ACETAMINOPHEN-CODEINE 300/30MG TAB PO PRN ×4 (05:38→22:28)
--- NOTE | 2020-03-09 06:08 | NUR ---
ROBERTA BELTRE CALLED BACK. NEW ORDERS RECEIVED AND CARRIED OUT. HGB TO BE RECHECKED AT 0800, IF LESS THAN 7 TRANSFUSE 2 UNITS OF PACKED RBCS. PATIENT AWARE. CONSENT SIGNED FOR POSSIBLE BLOOD TRANSFUSION. Addendum: 03/09/20 at 0610 by LIV GRULLON RN RN Amended: Links added.
--- NOTE | 2020-03-09 06:26 | NUR ---
PATIENT UPSET THAT SHE CANNOT GET A COPY OF REFUSAL OF TREATMENT THAT SHE SIGNED. REDIRECTED THAT SHE COULD GET A COPY WITH MEDICAL RECORDS. PATIENT THEN REFUSED TO SIGN CONSENT AT THIS TIME FOR BLOOD TRANSFUSION. Addendum: 03/09/20 at 0627 by LIV GRULLON RN RN Amended: Links added.
[2020-03-09] MEDS: INSULIN HUMULIN R 100 UNIT/ML 3ML SQ SCH ×7 (07:30→20:59)
[2020-03-09 08:00] VITALS: BP 160/65
[2020-03-09] MEDS: FAMOTIDINE 20MG TAB 20 MG TAB PO SCH (09:00)
[2020-03-09] MEDS: GABAPENTIN 300 MG CAPSULE PO SCH ×3 (09:00→22:07)
[2020-03-09] MEDS: HEPARIN SODIUM 5000UNIT/ML 1ML VIAL SQ SCH ×2 (09:05→21:00)
[2020-03-09] MEDS: GLIPIZIDE 5 MG TABLET PO SCH (09:16)
[2020-03-09] MEDS: METOPROLOL TARTRATE 25 MG TAB PO SCH ×2 (09:17→22:07)
--- NOTE | 2020-03-09 10:43 | NUR ---
PATIENT SIGNED CONSENT FORM FOR BLOOD TRANSFUSION AFTER HER READING RISKS. PER PATIENT SHE STILL WANTS TO TALK TO THE MAIN HOSPITALIST NOT NURSING ADMIN REGARDING ALTERNATIVES INSTEAD OF BLOOD . INFORMED CHARGE NURSE .
[2020-03-09 11:00] VITALS: BP 136/55
[2020-03-09 12:32] LABS: % IRON SATURATION 22.4 % (22-44)
--- NOTE | 2020-03-09 15:00 | NUR ---
cm note discussed option for quique snfs pt declined. Also provided ryan quotes for Heavy duty w/c [facility] $295 and [facility] $575, also provided pt with [facility] agency on aging info for poss dme , meds or provider assistance, pt states she has an elderly mother at home, but will try to find someone to come in and help her for adls/transfers and let cm know. Also offered to help with [employer] for Medicaid assistance declined and said she could do that at later time. Also requests cm to assist her to get home via ride or EMS? spoke to Montserrat AJ and she placed calls to [employer], [employer] and but not able to find w/c heavy duty for pt. pt states she would like to leave tomorrow. I updated salvatore. Per PT they say she needs to rehab somewhere 1st. she isnt ready. She cant even stand.or transfer
[2020-03-09 16:00] VITALS: BP 166/68
--- NOTE | 2020-03-09 16:34 | NUR ---
STARTED THE BLOOD TRANSFUSION.PATIENT INITIALLY EXTREMELY NERVOUS TO HAVE A BLOOD TRANSFUSION STATED HAS SOME CHEST PRESSURE. ASSESSED HER .STAYED AT HER SIDE FOR 20 MIN . PATIENT WANTED SOMEONE TO STAY WITH HER. EXPLAINED TO HER WE ARE CLOSE BY AND CALL LIGHT WITHIN REACH . INFORMED MD. PER MD ORDER FOR BENADRYL 25MG IV X 1 . PATIENT REFUSED BENADRYL AND STATED " NO IT MAKES ME FEEL SLEEPY I FEEL FINE I DONT FEEL THE PRESSURE ANYMORE" . INFORMED MD OF REFUSAL . WILL CONT TO MONITOR .
[2020-03-09 20:26] VITALS: BP 150/57
[2020-03-09] MEDS: NYSTATIN 15 GM POWDER TP SCH (22:07)
[2020-03-09] MEDS: INSULIN GLARGINE 100 UNITS/ML 10 ML VIAL SQ SCH (22:09)
[2020-03-09 22:33] LABS: HEMATOCRIT 24.8 % (36-48)
[2020-03-10 00:04] VITALS: BP 146/67
[2020-03-10 04:18] VITALS: BP 149/67
[2020-03-10] MEDS: INSULIN HUMULIN R 100 UNIT/ML 3ML SQ SCH ×6 (06:47→16:32)
[2020-03-10 08:00] VITALS: BP 149/69
[2020-03-10] MEDS: HEPARIN SODIUM 5000UNIT/ML 1ML VIAL SQ SCH (08:42)
[2020-03-10] MEDS: METOPROLOL TARTRATE 25 MG TAB PO SCH (08:43)
[2020-03-10] MEDS: GABAPENTIN 300 MG CAPSULE PO SCH (08:44)
[2020-03-10] MEDS: GLIPIZIDE 5 MG TABLET PO SCH (08:44)
[2020-03-10] MEDS: FAMOTIDINE 20MG TAB 20 MG TAB PO SCH (08:45)
[2020-03-10] MEDS: NYSTATIN 15 GM POWDER TP SCH (08:48)
[2020-03-10] MEDS: LEVOFLOXACIN 750 MG TABLET PO SCH (09:14)
[2020-03-10] MEDS: ACETAMINOPHEN-CODEINE 300/30MG TAB PO PRN ×2 (10:56→16:11)
--- NOTE | 2020-03-10 11:45 | NUR ---
CM NOTE/STEC QUOTE/DCP PATIENT REQUESTED FOR ME TO GO TO HER ROOM FOR DC PLANNING. PER PATIENT, STATES SHE IS LEAVING HOSPTAL TODAY. INFORMED PATIENT THERE WAS NOT A DISCHARGE ORDER AND PER PT NOTES, REQUIRES ASSISTANCE GETTING OUT OF BED AND ON CHAIR. PER PATIENT, UNDERSTANDINGS BUT DOES NOT WANT TO STAY AT HOSPITAL AND WISHES TO SIGN OUT VIA EMS. INFORMED PATIENT THAT IF SHE WHERE TO LEAVE AMA, SHE WOULD BE RESPONSIBLE FOR EMS. PATIENT THEN STATED THAT SHE IS UNSURE IF SHE CAN AFFORD EMS PRIVATE PAY. OFFERED TO CALL EMS SERVICE FOR QUOTE. [facility] CALLED FOR PRIVATE PAY QUOTE FROM [facility] TO PATIENTS RESIDENCE HERE [place]. QUOTE GIVEN AT $877.50. OFFERED TO CALL AUTO BODY MECHANIC FOR ASSISTANCE. PER PATIENT, DOES NOT WANT SUPERINTENDENT CAR CONSTRUCTION ON CASE. CM DIRECTOR, ABEL DREW RN, MADE AWARE. WILL MEET WITH PATIENT AND ABEL DREW RN IN PATIENTS ROOM PER PATIENT REQUEST AT 1230.
[2020-03-10 12:00] VITALS: BP 167/74
--- NOTE | 2020-03-10 12:30 | NUR ---
AMA Went into room with Tequila Kunz CM per patient's request. Patient requesting to leave Against Medical Advice (AMA) via ambulance. Tequila Kunz RN provided patient with quote for EMS of $800+ and informed patient it would be up to her to work out the arrangements with the ambulance provider. Patient verbalized understanding. Patient stated she felt that there is nothing more that we are doing here, that can't be done at home. Educated patient on need for further Physical Therapy to be able to safely transfer from the bed to a chair. Informed patient of complications of leaving the hospital too soon. Discussed at risk of skin breakdown leading to bed sores, at risk of DVT/PE due to limited movement that can cause a clot to form and break off into her brain and heart causing stroke and/or heart attack. Patient states, "All I need is for the EMS to take me into my home and place me in my recliner. I will then be able to call and get a wheel chair. " Patient then asked for a script for Tylenol #3. Informed patient that the attending is not obligated to write for the med when leaving AMA. Explained to patient that this is not a safe plan. Informed patient has not been able to demonstrate being able to pivot from the bed to a chair. Informed patient is at risk of falling and not being able to get up or call for help. Explained to patient that all of these scenarios can result in . Patient informed CMs, "I know this is not the safest thing, but I need to get home". Asked patient what needed to be done at home and what the hospital can do to get the patient to stay until she is safely ready to be discharged. Patient stated, "There is nothing that you can do for me here, I just need to go home". After educating patient on risks of leaving AMA and patient declining CM's offer to help with affairs at home to allow patient to stay, patient still requested to leave AMA. Provided patient with AMA form. Patient read over form and signed. Provided patient with phone number to [facility]. Requested that patient get dressed before calling the ambulance provider. Patient verbalized understanding. Updated bedside nurse Dianne Burleson RN of above. Aware patient needing to get dressed and PICC line to be removed. Notified Dr. Laws that patient has signed out AMA and informed of patient's request for a script for Tylenol #3. Per Dr. Laws, patient is leaving AMA and will not be able to write for the script. Addendum: 03/10/20 at 1350 by ABEL DREW Patient offered assistance through [facility] by Tequila Kunz, patient declined assistance. Addendum: 03/10/20 at 1458 by ABEL DREW Patient informed CM that there is nothing being done in the hospital that cannot be done at home. Reminded patient of physical therapy needs to work to getting patient mobile. Emphasized need to be able to transfer from bed to chair/wheel chair. Patient stated therapy is not effective and only once per day. CM offered to call attending physician for increase in frequency of physical therapy visits. Patient refused and stated she just needed to get home.
--- NOTE | 2020-03-10 12:30 | NUR ---
CM NOTE/AMA MEET PATIENT IN HER ROOM ALONG WITH CM DIRECTOR, ABEL DREW. QUOTE FOR SELF PAY EMS TRANSFER [place] [facility] [place] HER PLACE OF RESIDENCE GIVEN TO PATIENT. CONVERSATION INITIATED WITH PATIENT REGARDS TO UNSAFE DISCHARGE PLANNING IF SHE WERE TO GO AMA. PATIENT ASKED REASON FOR AMA DECISION IN WHICH SHE THEN REPLIED THAT SHE HAD BILLS SHE NEEDED TO TAKE CARE OF. DIRECTOR OFFERED ASSISTANCE AND ASKED IF ANYONE COULD HELP WITH THESE SAID BILLS TO BRING THEM OVER TO HOSPITAL SO SHE DOESNT HAVE TO LEAVE AGAINST MEDICAL ADVICE, PATIENT STATE THAT " I JUST HAVE TO GO, I HAVE TO GO HOME." PATIENT EDUCATED ON UNSAFE DISCHARGE AND POTENTIAL FOR HARM, SHE IS CURRENTLY UNABLE TO INDEPENDENTLY TRANSFER FROM BED TO CHAIR OR EVEN MOVE AROUND IN BED INDEPENDENTLY WITHOUT USE OF TRAPEZE. ALSO EDUCATED ON RISK FOR BLOOD CLOTS IF STAYS IMMOBILE AND PAIN MANAGEMENT SINCE SHE WILL BE LEAVING AMA, MD DOES NOT HAVE OBLIGATION TO GIVE RX FOR PAIN MANAGEMENT. INFORMED PATIENT SHE IS IN NEED OF REHAB TO OBTAIN THAT INDEPENDENCE AND THEN ONCE SHE IS THERE, WC CAN BE WORKED ON AND SHE COULD POTENTIALLY BE A CANDIDATE FOR DISCHARGE HOME. PER PATIENT, UNDERSTANDS [facility]ISKS AND [facility] TRYING TO HELP HER WITH SAFE DISCHARGE PLANNING BUT STATES "I JUST HAVE TO GO, I NEED TO GO HOME". REQUESTING AMA. FORM TO BE SIGNED BY PATIENT. I ASKED PATIENT IF IT WAS OK TO CHECK WITH HER NEXT OF KIN, MOTHER, TO SEE IF SHE WAS AT HOME FOR EMS TO TRANSFER. PER PATIENT, DID NOT WANT ME TO CALL, THAT SHE HAD JUST SPOKE TO HER MOTHER AT HOME 5 MIN AGO AND SHE WILL BE THERE. I WAS LEAVING, PATIENT ASKED ME IF A [facility] ASSISTANCE WHERE TO COME UP AT LATER TIME WHILE SHE IS HOME, IF SHE WOULD STILL BE ELIGIBLE. I TOLD HER I COULD REFER HER TO THE DEPARTMENT OF AGING AND DISABILITY FOR POSSIBLE ASSISTANCE AT HOME, SHE THEN TOLD ME THAT SHE KNEW ABOUT THEM AND WILL NOT BE REQUIRING THE DEPARTMENT NUMBER, THAT SHE HAS IT AT HOME. OFFERED TO WRITE DOWN DEPARTMENT OF AGING AND SMALL APPLIANCE ASSEMBLY SUPERVISOR, MANUEL AUGUSTE, OFFICE NUMBER AND WORK PHONE, BUT PATIENT DECLINED. SEE ABEL DREW RN NOTES FOR CONVERSATION HAD IN REPORT. DECISION TO LEAVE AMA REPORT GIVEN TO PRIMARY NURSE, VANDANA RN AND CHARGE NURSE, ISAC GREGORIO.
--- NOTE | 2020-03-10 13:45 | NUR ---
RE: PT LEAVING AMA: REMOVED PICC LINE FROM JAYY, TIP INTACT. PRESSURE HELD X 1 MIN WITH STERILE GAUZE, NO BLEED NOTED. DRESSED WITH STERILE 4X4S AND OPSITE. REMOVED TORRES CATH AFTER COMPLETELY DEFLATING BALLOON. TIP/BALLOON INTACT. PT TOLERATED WELL.
--- NOTE | 2020-03-10 15:00 | NUR ---
Report made to APS for assistance with pt. leaving AMA post AKA on 03/02. Dir. of CM and CM spoke with pt. about the importance of remaining hospitalized and offered to assist with d/c needs, however, pt. declined. Pt. reportedly resides with her 90y mother; request made for APS to assist with post d/c needs for pt. and her mother. Report made to Sahil/ID#[id number], Reference #[id number]
[2020-03-10 16:00] VITALS: BP 153/75
--- NOTE | 2020-03-10 16:00 | NUR ---
Telephone call from Destin Fenton/APS, [phone], following up on report made. SW provided information requested. Per Destin, he will speak w/his service supervisor about case.
--- NOTE | 2020-03-10 16:52 | NUR ---
Call back from Destin Fenton/[facility] stating someone would follow up with case and offer their services.
--- NOTE | 2020-03-10 18:43 | NUR ---
[facility] ARRIVED AND REPORT GIVEN TO EMS STAFF AND PATIENT TRANSFERRED TO [facility] BY UTILIZING A [place] LIFT. PATIENT TOLERATED TRANSFER WITHOUT INCIDENT.
== END 2020-03-10 18:45 | disposition left against medical advice (07) | DRG 853 ==
LOC: EDH 20:40 → EEVIPCON 20:41 → EDHIP 20:41 → DAHIP 03-02 08:01 → 3DH 03-02 18:09
PROVIDERS: ADMIT Internal Medicine; ATTEND Internal Medicine
PROC: 3E0234Z Introduction of Serum, Toxoid and Vaccine into Muscle, Percutaneous Approach (ICD-10-PCS; 2020-03-01)
PROC: 0Y6C0Z3 Detachment at Right Upper Leg, Low, Open Approach (ICD-10-PCS; principal; 2020-03-02 21:30)
PROC: 30233N1 Transfusion of Nonautologous Red Blood Cells into Peripheral Vein, Percutaneous Approach (ICD-10-PCS; 2020-03-09)
DX: A41.9 Sepsis, unspecified organism (principal); A48.0 Gas gangrene; E43 Unspecified severe protein-calorie malnutrition; N18.6 End stage renal disease; M72.6 Necrotizing fasciitis; N17.0 Acute kidney failure with tubular necrosis; R65.21 Severe sepsis with septic shock; E87.1 Hypo-osmolality and hyponatremia; N17.9 Acute kidney failure, unspecified; N39.0 Urinary tract infection, site not specified; E11.52 Type 2 diabetes mellitus with diabetic peripheral angiopathy with gangrene; I12.0 Hypertensive chronic kidney disease with stage 5 chronic kidney disease or end stage renal disease; L03.115 Cellulitis of right lower limb; M86.671 Other chronic osteomyelitis, right ankle and foot; Z68.43 Body mass index [BMI] 50.0-59.9, adult; N18.9 Chronic kidney disease, unspecified; E66.01 Morbid (severe) obesity due to excess calories; E11.21 Type 2 diabetes mellitus with diabetic nephropathy; I12.9 Hypertensive chronic kidney disease with stage 1 through stage 4 chronic kidney disease, or unspecified chronic kidney disease; E11.22 Type 2 diabetes mellitus with diabetic chronic kidney disease; Z23 Encounter for immunization; E11.42 Type 2 diabetes mellitus with diabetic polyneuropathy; E11.621 Type 2 diabetes mellitus with foot ulcer; E11.69 Type 2 diabetes mellitus with other specified complication; E78.5 Hyperlipidemia, unspecified; F32.9 Major depressive disorder, single episode, unspecified; Z53.29 Procedure and treatment not carried out because of patient's decision for other reasons; F43.20 Adjustment disorder, unspecified; L97.519 Non-pressure chronic ulcer of other part of right foot with unspecified severity; Y93.89 Activity, other specified; Y92.008 Other place in unspecified non-institutional (private) residence as the place of occurrence of the external cause; Y99.8 Other external cause status; W25.XXXA Contact with sharp glass, initial encounter; Z79.4 Long term (current) use of insulin; Z83.3 Family history of diabetes mellitus; Z91.19 Patient's noncompliance with other medical treatment and regimen; Z88.1 Allergy status to other antibiotic agents
CPT/HCPCS: 36415; 36430; 36600; 71045; 73630; 73700; 73718; 80048; 80053; 80069; 81001; 82270; 82550; 82570; 82803; 82948; 83036; 83540; 83550; 83605; 83735; 83874; 84100; 84145; 84156; 84295; 84484; 85014; 85018; 85025; 85610; 85651; 85730; 86140; 86850; 86900; 86901; 86923; 87040; 87070; 87076; 87077; 87088; 87186; 88307; 88311; 90714; 93005; 93926; 93971; 97039; 99291; C1894; G0378; J0330; J0696; J1100; J1200; J1644; J1815; J2001; J2020; J2185; J2250; J2270; J2405; J2704; J2710; J2795; J3010; J3475; J3490; J7030; P9016; P9045

== ENCOUNTER 2020-03-16 11:39 | Inpatient (IN) | payer OTHER ==
[~2020-03-16] VITALS: Ht 172.7 cm; Wt 111.1 kg
[~2020-03-16 11:39] MED LIST: CHOL200026 PO; GLIP10TA9 PO; HYDR12.54 PO; METF-446 PO; METO25TA6 PO
[2020-03-16 11:58] LABS: BASOPHILS % (AUTO) 0.9 % (0.0-5.0); EOSINOPHILS % (AUTO) 7.9 % (0.0-8.0); HEMATOCRIT 25.1 % (36-48); LYMPHOCYTES % (AUTO) 19.1 % (21.0-51.0); MEAN CORPUSCULAR HEMOGLOBIN 26.6 pg (27.0-33.0); MEAN CORPUSCULAR HGB CONC 30.7 g/dL (32.0-36.0); MEAN CORPUSCULAR VOLUME 86.6 fL (79-99); MONOCYTES % (AUTO) 4.6 % (3.0-13.0); NEUTROPHILS % (AUTO) 67.3 % (40.0-77.0); PLATELET COUNT (AUTO) 237 K/uL (130-400); WHITE BLOOD COUNT (AUTO) 5.4 K/uL (4.8-10.8)
[2020-03-16 12:07] LABS: CREATININE 1.6 mg/dL (0.5-1.5); POTASSIUM 4.5 mmol/L (3.5-5.1)
[2020-03-16 12:11] LABS: ALBUMIN 1.7 g/dL (3.5-5.0); BILIRUBIN,TOTAL 0.2 mg/dL (0.2-1.0); TOTAL PROTEIN, SERUM 6.9 g/dL (6.0-8.3)
[2020-03-16 12:38] LABS: INR 0.91 (0.85-1.15); PARTIAL THROMBOPLASTIN TIME 29.4 SEC (26.3-35.5); PROTHROMBIN TIME 9.9 SEC (9.6-11.6)
[2020-03-16] MEDS ORDERED: NEOMY SULF/BACITRA/POLYMYXIN B 1 EACH PACKET TP ONE (15:31)
[2020-03-16] MEDS ORDERED: ONDANSETRON HCL 4 MG/2 ML VIAL IV PRN (16:45)
[2020-03-16] MEDS ORDERED: LACTULOSE 20 GM/30 ML UDCUP PO PRN (16:45)
[2020-03-16] MEDS ORDERED: ACETAMINOPHEN 325 MG TAB PO PRN (16:45)
[2020-03-16] MEDS ORDERED: HYDRALAZINE HCL 20 MG/ML VIAL IV PRN (17:00)
[2020-03-16] MEDS: INSULIN HUMULIN R 100 UNIT/ML 3ML SQ SCH (21:00)
[2020-03-16 23:40] VITALS: BP 157/55
[2020-03-17 04:10] VITALS: BP 184/82
[2020-03-17 04:23] LABS: CREATININE 1.5 mg/dL (0.5-1.5); POTASSIUM 4.8 mmol/L (3.5-5.1)
[2020-03-17 04:24] LABS: BASOPHILS % (AUTO) 1.3 % (0.0-5.0); EOSINOPHILS % (AUTO) 10.3 % (0.0-8.0); HEMATOCRIT 23.1 % (36-48); LYMPHOCYTES % (AUTO) 25.5 % (21.0-51.0); MEAN CORPUSCULAR HEMOGLOBIN 26.9 pg (27.0-33.0); MEAN CORPUSCULAR HGB CONC 30.7 g/dL (32.0-36.0); MEAN CORPUSCULAR VOLUME 87.5 fL (79-99); MONOCYTES % (AUTO) 7.4 % (3.0-13.0); NEUTROPHILS % (AUTO) 55.3 % (40.0-77.0); PLATELET COUNT (AUTO) 232 K/uL (130-400); RED BLOOD CELL COUNT(AUTO) 2.64 MIL/uL (4.00-5.50); RED CELL DISTRIBUTION WIDTH 17.1 % (11.0-15.5); WHITE BLOOD COUNT (AUTO) 4.8 K/uL (4.8-10.8)
[2020-03-17] MEDS: INSULIN HUMULIN R 100 UNIT/ML 3ML SQ SCH ×4 (06:39→21:00)
[2020-03-17 08:36] VITALS: BP 160/81
[2020-03-17] MEDS ORDERED: NON-FORMULARY MEDICATION 1 EACH (Cholecalciferol (Vitamin D3) (Vitamin D3) 50 MCG) PO SCH (09:30)
[2020-03-17 11:35] VITALS: BP 142/70
--- NOTE | 2020-03-17 13:40 | NUR ---
ASSISTED PT WITH BEDPAN PLACED HOB DOWN AND PT USED HER BOTH ARM STRENGTH TO PULL UP ON BED. HOB RAISED AND TURNED RIGHT LATERAL AND PLACED ON BEDPAN AND BACK ON HER BACK. ONCE DONE, PT TURNED ON RIGHT LATERAL POSITION TO PROVIDE HYGEINE CARE AFTER BOWEL MOVEMENT ON BEDPAN. PT WITH GOOD UPPER EXTREMITY STRENGTH. PT INFORMED WILL PLACE TRAPEZE BAR TO ASSIST IN MOVING BED. PT SAID IT WOULD NOT HELP IF SHES NOT GOING HOME WITH TRAPEZE BAR BUT EXPLAINED WOULD HELP WHILE SHE WAS HERE. SHE SAID OK AND AGREED FOR TRAPEZE BAR. WILL CONTINUE TO MONITOR.
--- NOTE | 2020-03-17 15:30 | NUR ---
[facility] consult Spoke with patient's nurse, Neli GREGORIO, who states that surgical consult was done earlier and no intervention is required, no open wound is present, leave site open to air. No [facility] recommendations required at this time.
--- NOTE | 2020-03-17 15:56 | NUR ---
NUTRITION OILER BANDER-ASSISTED NUTRITION EDUCATION. HANDOUT FAXED TO [phone] ([phone]), RN NOTIFIED. Spoke with Pt via phone. Pt verbalized understanding. Addendum: 03/17/20 at [address] Amended: Links added.
--- NOTE | 2020-03-17 16:03 | NUR ---
Patient is not safe to use a bedside commode at this time, patient needs to practice by utilizing a specific sliding board from her bed to a specific Bariatric bedside commode for patient's safety to prevent from falling.Recommending a bedpan for now until recommended DME's are available.Safest way to transfer patient is by using a Je lift. Addendum: 03/17/20 at 1608 by DON GALLARDO, PT PT Amended: Links added.
[2020-03-17] MEDS ORDERED: NON-FORMULARY MEDICATION 1 EACH (Metformin HCl 1,000 MG) PO SCH (16:30)
[2020-03-17] MEDS ORDERED: METOPROLOL TARTRATE 25 MG TAB ONE (16:33)
[2020-03-17] MEDS: GLIPIZIDE 5 MG TABLET PO SCH (16:35)
[2020-03-17] MEDS: METFORMIN HCL 500 MG TABLET PO SCH (16:35)
[2020-03-17] MEDS: METOPROLOL TARTRATE 25 MG TAB PO SCH (16:36)
[2020-03-17 16:51] VITALS: BP 142/70
[2020-03-17] MEDS ORDERED: NON-FORMULARY MEDICATION 1 EACH (Glipizide 10 MG) PO SCH (17:00)
[2020-03-17 20:02] VITALS: BP 167/53
[2020-03-17] MEDS: NYSTATIN 15 GM POWDER TP SCH (21:00)
[2020-03-18] VITALS (7 sets, daily range): BP systolic 157–169; BP diastolic 57–90
[2020-03-18] MEDS: INSULIN HUMULIN R 100 UNIT/ML 3ML SQ SCH ×4 (06:47→20:22)
[2020-03-18 08:40] LABS: BASOPHILS % (AUTO) 0.8 % (0.0-5.0); EOSINOPHILS % (AUTO) 12.9 % (0.0-8.0); HEMATOCRIT 23.7 % (36-48); LYMPHOCYTES % (AUTO) 24.9 % (21.0-51.0); MEAN CORPUSCULAR HEMOGLOBIN 27.2 pg (27.0-33.0); MEAN CORPUSCULAR HGB CONC 31.2 g/dL (32.0-36.0); MEAN CORPUSCULAR VOLUME 87.1 fL (79-99); MONOCYTES % (AUTO) 6.8 % (3.0-13.0); NEUTROPHILS % (AUTO) 54.4 % (40.0-77.0); PLATELET COUNT (AUTO) 217 K/uL (130-400); RED BLOOD CELL COUNT(AUTO) 2.72 MIL/uL (4.00-5.50); RED CELL DISTRIBUTION WIDTH 17.2 % (11.0-15.5); WHITE BLOOD COUNT (AUTO) 4.7 K/uL (4.8-10.8)
[2020-03-18 08:52] LABS: CREATININE 1.4 mg/dL (0.5-1.5); POTASSIUM 4.6 mmol/L (3.5-5.1)
[2020-03-18] MEDS: ERGOCALCIFEROL (VITAMIN D2) 50,000 UNIT CAPSULE PO SCH ×2 (09:00→10:22)
[2020-03-18] MEDS ORDERED: COMPOUND IV MISC 1 EACH IVSOLN MISC PRN (09:00)
[2020-03-18] MEDS ORDERED: NON-FORMULARY MEDICATION 1 EACH (Hydrochlorothiazide 12.5 MG) PO SCH (09:00)
[2020-03-18] MEDS ORDERED: EPOETIN ALFA 10,000 UNIT/ML VIAL SQ SCH (09:00)
[2020-03-18 09:15] LABS: T4 (THYROXINE) 7.4 ug/dL (4.7-13.3)
--- NOTE | 2020-03-18 09:46 | NUR ---
notified JG Ruvalcaba,ORDER MANAGEMENT SPECIALIST, Charge-Nurse that Ms. Call will be needing a bariatric wheelchair, bariatric bedside commode and bariatric walker for patient safety prior to D/C.At this time patient requires 2 person assist from supine to sit at the EOB,also emphasize to patient the importance of using her overhead trapeze bar for UE strengthening exercises and to assist her for bridging and to pull herself in the bed.Patient was able to practice sit to stand 3 x from the EOB holding on to the back seat of the regular chair and 2 person assist on her side.Patient still high risk of falling.Recommending a Je lift for any transfer activities from bed to a recliner for safety.Patient realized that she's not ready to be using bedside commode at this time due to inability to hop.Notified JG Quinteros regarding this issue. Addendum: 03/18/20 at 0957 by DON GALLARDO, PT PT Amended: Links added.
[2020-03-18] MEDS: IRON SUCROSE COMPLEX 100 MG in SODIUM CHLORIDE 0.9% 50 ML IV SCH (10:21)
[2020-03-18] MEDS: METFORMIN HCL 500 MG TABLET PO SCH ×2 (10:22→17:00)
[2020-03-18] MEDS: GLIPIZIDE 5 MG TABLET PO SCH ×2 (10:22→17:00)
[2020-03-18] MEDS: METOPROLOL TARTRATE 25 MG TAB PO SCH ×2 (10:23→22:11)
[2020-03-18] MEDS: NYSTATIN 15 GM POWDER TP SCH ×2 (10:23→22:15)
[2020-03-18] MEDS: HYDROCHLOROTHIAZIDE 25 MG TABLET PO SCH (10:23)
--- NOTE | 2020-03-18 10:23 | NUR ---
REFUSED VITAMIN D3 SAID SHE DOESNT TAKE. INFORMED MEDICATION WAS ON HER HOME MEDICATION LIST AND SHE REFUSED MEDICATION CONTINUING TO REPORT SHES NEVER TAKE BEFORE AND DOES NOT TAKEN. REMOVED FROM HER MED LIST AND D/C MEDICATION. Addendum: 03/18/20 at 1947 by JOSE NAZARIO RN CORRECTION: VITAMIN D2
--- NOTE | 2020-03-18 15:00 | NUR ---
[facility] CONSULT PATIENT ASSESSED REQUESTED: [facility] RECOMMENDATIONS SUBMITTED AND REPORT GIVEN TO PATIENT'S NURSE. Addendum: 03/19/20 at 1335 by LEROY MOSES LVN Amended: Links added.
[2020-03-18] MEDS ORDERED: HONEY 1 APPL/ML TUBE TP ONE (17:16)
--- NOTE | 2020-03-18 18:35 | NUR ---
DCP CM met with pt discussed dc plans. Pt was independent but now assist with ADL's, lives at home w/ 90+y/o mther. Denies any equipments/services. Well known readmission, left AMA multiple times. Will need EMS transport to home once stable to DC. Currently selfpay, [facility] assisting, given [facility] resources packet. Addendum: 03/19/20 at 1837 by CARO SANCHEZ LVN CM Amended: Links added.
[2020-03-18] MEDS ORDERED: HONEY 1 APPL/ML TUBE TP PRN (19:45)
[2020-03-19 03:40] VITALS: BP 110/59
[2020-03-19 04:30] LABS: BASOPHILS % (AUTO) 0.8 % (0.0-5.0); EOSINOPHILS % (AUTO) 12.7 % (0.0-8.0); LYMPHOCYTES % (AUTO) 27.7 % (21.0-51.0); MEAN CORPUSCULAR HEMOGLOBIN 26.9 pg (27.0-33.0); MEAN CORPUSCULAR HGB CONC 30.4 g/dL (32.0-36.0); MEAN CORPUSCULAR VOLUME 88.6 fL (79-99); MONOCYTES % (AUTO) 5.7 % (3.0-13.0); NEUTROPHILS % (AUTO) 52.9 % (40.0-77.0); PLATELET COUNT (AUTO) 236 K/uL (130-400); RED BLOOD CELL COUNT(AUTO) 2.71 MIL/uL (4.00-5.50); WHITE BLOOD COUNT (AUTO) 4.9 K/uL (4.8-10.8)
[2020-03-19 05:01] LABS: CREATININE 1.4 mg/dL (0.5-1.5); POTASSIUM 4.6 mmol/L (3.5-5.1)
[2020-03-19] MEDS: ACETAMINOPHEN 325 MG TAB PO PRN (05:07)
[2020-03-19] MEDS: INSULIN HUMULIN R 100 UNIT/ML 3ML SQ SCH ×3 (06:26→16:30)
[2020-03-19 08:00] VITALS: BP 168/58
[2020-03-19] MEDS: METFORMIN HCL 500 MG TABLET PO SCH ×2 (08:00→16:39)
[2020-03-19] MEDS: GLIPIZIDE 5 MG TABLET PO SCH ×2 (09:00→16:39)
--- NOTE | 2020-03-19 09:00 | NUR ---
DM MEDS. HELD, HAS BEEN HAVING LOW BLD. SUGARS
[2020-03-19] MEDS: HYDROCHLOROTHIAZIDE 25 MG TABLET PO SCH (09:45)
[2020-03-19] MEDS: METOPROLOL TARTRATE 25 MG TAB PO SCH ×2 (09:45→21:25)
[2020-03-19] MEDS: NYSTATIN 15 GM POWDER TP SCH ×2 (09:46→21:34)
[2020-03-19] MEDS: IRON SUCROSE COMPLEX 100 MG in SODIUM CHLORIDE 0.9% 50 ML IV SCH (10:23)
[2020-03-19 11:00] VITALS: BP 173/66
--- NOTE | 2020-03-19 14:00 | NUR ---
DRESSING TO RT STUMP CHANGED AT LEAST 4 TIMES. SM. AREA KEEPS LEAKING. TINCTURE BENZOIN APPLIED AND AREA ADDED STERI- STRIPS
[2020-03-19 16:00] VITALS: BP 174/71
[2020-03-19] MEDS ORDERED: METOPROLOL TARTRATE 25 MG TAB PO SCH (17:15)
[2020-03-19 17:27] LABS: HEMOGLOBIN A1C 7.1 % (4.0-6.0)
[2020-03-19 20:48] VITALS: BP 161/51
[2020-03-20 00:20] VITALS: BP 163/76
[2020-03-20] MEDS: ACETAMINOPHEN 325 MG TAB PO PRN ×2 (02:05→11:58)
[2020-03-20 03:49] VITALS: BP 139/61
[2020-03-20 05:11] LABS: BASOPHILS % (AUTO) 1.1 % (0.0-5.0); EOSINOPHILS % (AUTO) 15.3 % (0.0-8.0); HEMATOCRIT 23.4 % (36-48); LYMPHOCYTES % (AUTO) 34.2 % (21.0-51.0); MEAN CORPUSCULAR HEMOGLOBIN 26.6 pg (27.0-33.0); MEAN CORPUSCULAR HGB CONC 30.3 g/dL (32.0-36.0); MEAN CORPUSCULAR VOLUME 87.6 fL (79-99); MONOCYTES % (AUTO) 8.5 % (3.0-13.0); NEUTROPHILS % (AUTO) 40.7 % (40.0-77.0); PLATELET COUNT (AUTO) 223 K/uL (130-400); RED BLOOD CELL COUNT(AUTO) 2.67 MIL/uL (4.00-5.50); WHITE BLOOD COUNT (AUTO) 4.6 K/uL (4.8-10.8)
[2020-03-20 05:24] LABS: CREATININE 1.4 mg/dL (0.5-1.5); POTASSIUM 4.5 mmol/L (3.5-5.1)
[2020-03-20] MEDS ORDERED: GLIPIZIDE 5 MG TABLET PO SCH (08:00)
[2020-03-20 08:09] VITALS: BP 144/56
[2020-03-20] MEDS: GLIPIZIDE 5 MG TABLET PO SCH ×2 (09:07→17:08)
[2020-03-20] MEDS: METFORMIN HCL 500 MG TABLET PO SCH ×2 (09:08→17:09)
[2020-03-20] MEDS: HYDROCHLOROTHIAZIDE 25 MG TABLET PO SCH (09:09)
[2020-03-20] MEDS: METOPROLOL TARTRATE 25 MG TAB PO SCH ×2 (09:09→20:12)
[2020-03-20] MEDS: NYSTATIN 15 GM POWDER TP SCH ×2 (09:10→21:00)
[2020-03-20] MEDS: IRON SUCROSE COMPLEX 100 MG in SODIUM CHLORIDE 0.9% 50 ML IV SCH (09:20)
[2020-03-20 11:00] VITALS: BP 147/66
[2020-03-20 16:00] VITALS: BP 129/66
--- NOTE | 2020-03-20 16:03 | NUR ---
CALLED TO BED SIDE BY PATIENT. WANTS TO KNOW IF SHE IS GOING TO GET [facility] PROVIDERS, [facility] OR EQUIPMENT CM STATED NO. PT ASKS HOW ARE YOU HELPING ME GET READY FOR DISCHARGE. ARE YOU GOING TO SEND HOME HEALTH FOR ME? CM STATES YOU WILL BE READY WHEN WHEN YOU CAN TRANSFER FROM BED TO [facility] PT STATES I NEED PROVIDERS . I WAS TOLD THAT A WHEELCHAIR IS $500. CM STATES: YOU NEED TO LEARN TO DO YOU OWN DRESSING, YES, YOU DO.. AND BATHE YOURSELF. YOU NEED TO LOOK FOR A WHEELCHAIR THAT IS USED/AFFORDABLE, IF YOU ASK FOR HELP WITH DME, DON'T ASK FOR HELP WITH A NEW CHAIR , ASK HELP WITH A USED ONE. PT STATES I NEED REHAB, ARENT THEY OBLIGATED TO GIVE A CERTAIN NUMBER OF [facility] BEDS ADVISED PATIENT THAT WAS UNTRUE, AND EVEN IF IT WAS, THAT DOES NOT MEAN THEY ARE OBLIGATED TO HER. ADVISED HER TO USE THESE NEXT FEW DAYS TO BECOME INDEPENDENT POSSIBLE. ADVISD HER TO CALL [facility] TO ASK ABOUT LOOKIING FOR A USED WHEELCHAIR. CM TO FOLLOW UP MONDAY FOR POSSILBE DISCHARGE Addendum: 03/20/20 at 1615 by CARLEY BAUTISTA RN CM Amended: Links added.
[2020-03-20 20:00] VITALS: BP 131/54
[2020-03-21] VITALS (7 sets, daily range): BP systolic 115–172; BP diastolic 43–87
[2020-03-21 04:25] LABS: BASOPHILS % (AUTO) 1.1 % (0.0-5.0); EOSINOPHILS % (AUTO) 14.7 % (0.0-8.0); HEMATOCRIT 25.6 % (36-48); LYMPHOCYTES % (AUTO) 31.4 % (21.0-51.0); MEAN CORPUSCULAR HEMOGLOBIN 26.8 pg (27.0-33.0); MEAN CORPUSCULAR HGB CONC 30.5 g/dL (32.0-36.0); MONOCYTES % (AUTO) 7.5 % (3.0-13.0); NEUTROPHILS % (AUTO) 45.1 % (40.0-77.0); PLATELET COUNT (AUTO) 237 K/uL (130-400); RED BLOOD CELL COUNT(AUTO) 2.91 MIL/uL (4.00-5.50); RED CELL DISTRIBUTION WIDTH 17.2 % (11.0-15.5); WHITE BLOOD COUNT (AUTO) 4.7 K/uL (4.8-10.8)
[2020-03-21 04:42] LABS: CREATININE 1.4 mg/dL (0.5-1.5); POTASSIUM 4.6 mmol/L (3.5-5.1)
[2020-03-21] MEDS: METFORMIN HCL 500 MG TABLET PO SCH ×2 (09:31→18:17)
[2020-03-21] MEDS: METOPROLOL TARTRATE 25 MG TAB PO SCH ×2 (09:31→22:24)
[2020-03-21] MEDS: HYDROCHLOROTHIAZIDE 25 MG TABLET PO SCH (09:31)
[2020-03-21] MEDS: GLIPIZIDE 5 MG TABLET PO SCH ×2 (09:32→17:00)
[2020-03-21] MEDS: IRON SUCROSE COMPLEX 100 MG in SODIUM CHLORIDE 0.9% 50 ML IV SCH (09:33)
[2020-03-21] MEDS: NYSTATIN 15 GM POWDER TP SCH ×2 (09:33→22:24)
--- NOTE | 2020-03-21 16:30 | NUR ---
PAGED ROBERTA FLORES 57 PENDING CALL BACK.
--- NOTE | 2020-03-21 17:00 | NUR ---
CLEO CALLED BACK RE; BS 59 ORDERS ENTERED.
[2020-03-21] MEDS: HONEY 1 APPL/ML TUBE TP SCH (22:24)
[2020-03-22 03:25] VITALS: BP 121/69
[2020-03-22 06:01] LABS: BASOPHILS % (AUTO) 0.8 % (0.0-5.0); EOSINOPHILS % (AUTO) 13.2 % (0.0-8.0); HEMATOCRIT 26.3 % (36-48); LYMPHOCYTES % (AUTO) 26.8 % (21.0-51.0); MEAN CORPUSCULAR HGB CONC 30.4 g/dL (32.0-36.0); MEAN CORPUSCULAR VOLUME 88.9 fL (79-99); MONOCYTES % (AUTO) 6.6 % (3.0-13.0); NEUTROPHILS % (AUTO) 52.4 % (40.0-77.0); PLATELET COUNT (AUTO) 241 K/uL (130-400); RED BLOOD CELL COUNT(AUTO) 2.96 MIL/uL (4.00-5.50); RED CELL DISTRIBUTION WIDTH 17.5 % (11.0-15.5); WHITE BLOOD COUNT (AUTO) 4.7 K/uL (4.8-10.8)
[2020-03-22 06:29] LABS: ALBUMIN 1.9 g/dL (3.5-5.0); BILIRUBIN,TOTAL 0.2 mg/dL (0.2-1.0); CREATININE 1.4 mg/dL (0.5-1.5); POTASSIUM 4.8 mmol/L (3.5-5.1); TOTAL PROTEIN, SERUM 6.9 g/dL (6.0-8.3)
[2020-03-22 08:00] VITALS: BP 130/67
[2020-03-22] MEDS ORDERED: GLIPIZIDE 5 MG TABLET PO SCH (08:00)
--- NOTE | 2020-03-22 08:30 | NUR ---
Jaimee Crowder HERE AND GOT HER UP IN THE CHAIR ,WITH HELP. AND WALKER CALL LIGHT IN REACH. ORAL CARE PROVIDED . FOR HER
[2020-03-22] MEDS: METOPROLOL TARTRATE 25 MG TAB PO SCH ×2 (09:22→21:26)
[2020-03-22] MEDS: HYDROCHLOROTHIAZIDE 25 MG TABLET PO SCH (09:22)
[2020-03-22] MEDS: METFORMIN HCL 500 MG TABLET PO SCH (09:23)
[2020-03-22] MEDS: NYSTATIN 15 GM POWDER TP SCH ×2 (09:26→21:26)
[2020-03-22] MEDS: IRON SUCROSE COMPLEX 100 MG in SODIUM CHLORIDE 0.9% 50 ML IV SCH (10:00)
[2020-03-22 11:00] VITALS: BP 131/63
--- NOTE | 2020-03-22 12:32 | NUR ---
DR. MCKEON WAS CALLED AND ANSWER . CONSULTIONS ORDER FOR DIABETIC CARE. WILL BE IN THIS MONDAY OR MONDAY. VIET LOU N.P. AWARE OF COMMING IN THOSE DAYS OKAY TO FOLLOW THAN
--- NOTE | 2020-03-22 13:50 | NUR ---
DRSG TO HER RT ABOVE REDONE, DUE TO RT OUTER AREA OF RT ABOVE KNEE BLEEDING NOTED. SIDE DRSG APPLICATION. , PRESSURE TO SITE, apply . noted no bleeding education given if she noted some bleeding to let nurses know call light inreach.
[2020-03-22 16:00] VITALS: BP 130/67
[2020-03-22] MEDS: INSULIN HUMULIN R 100 UNIT/ML 3ML SQ SCH ×2 (16:30→19:43)
[2020-03-22] MEDS ORDERED: METFORMIN HCL 500 MG TABLET PO SCH (17:00)
[2020-03-22 19:39] VITALS: BP 128/48
[2020-03-22 21:25] VITALS: BP 131/59
[2020-03-22] MEDS: HONEY 1 APPL/ML TUBE TP SCH (21:26)
[2020-03-23 00:07] VITALS: BP 124/58
[2020-03-23 04:06] VITALS: BP 121/60
[2020-03-23 04:53] LABS: BASOPHILS % (AUTO) 0.9 % (0.0-5.0); EOSINOPHILS % (AUTO) 9.5 % (0.0-8.0); HEMATOCRIT 24.4 % (36-48); LYMPHOCYTES % (AUTO) 31.6 % (21.0-51.0); MEAN CORPUSCULAR HEMOGLOBIN 27.4 pg (27.0-33.0); MEAN CORPUSCULAR HGB CONC 30.7 g/dL (32.0-36.0); MEAN CORPUSCULAR VOLUME 89.1 fL (79-99); MONOCYTES % (AUTO) 8.6 % (3.0-13.0); NEUTROPHILS % (AUTO) 49.2 % (40.0-77.0); PLATELET COUNT (AUTO) 230 K/uL (130-400); RED BLOOD CELL COUNT(AUTO) 2.74 MIL/uL (4.00-5.50); RED CELL DISTRIBUTION WIDTH 17.9 % (11.0-15.5); WHITE BLOOD COUNT (AUTO) 4.4 K/uL (4.8-10.8)
[2020-03-23 05:13] LABS: ALBUMIN 1.9 g/dL (3.5-5.0); BILIRUBIN,TOTAL 0.1 mg/dL (0.2-1.0); CREATININE 1.4 mg/dL (0.5-1.5); POTASSIUM 4.8 mmol/L (3.5-5.1); TOTAL PROTEIN, SERUM 6.6 g/dL (6.0-8.3)
[2020-03-23] MEDS: INSULIN HUMULIN R 100 UNIT/ML 3ML SQ SCH ×4 (06:07→20:08)
[2020-03-23 08:00] VITALS: BP 131/57
[2020-03-23] MEDS: IRON SUCROSE COMPLEX 100 MG in SODIUM CHLORIDE 0.9% 50 ML IV SCH (09:00)
[2020-03-23] MEDS: METFORMIN HCL 500 MG TABLET PO SCH (10:22)
[2020-03-23] MEDS: NYSTATIN 15 GM POWDER TP SCH ×2 (10:22→19:59)
[2020-03-23] MEDS: METOPROLOL TARTRATE 25 MG TAB PO SCH ×2 (10:22→19:57)
[2020-03-23] MEDS: HYDROCHLOROTHIAZIDE 25 MG TABLET PO SCH (10:22)
[2020-03-23 11:32] VITALS: BP 145/64
[2020-03-23 16:00] VITALS: BP 160/63
[2020-03-23] MEDS ORDERED: EPOETIN ALFA 10,000 UNIT/ML VIAL SQ SCH (17:45)
[2020-03-23] MEDS: HONEY 1 APPL/ML TUBE TP SCH (19:58)
[2020-03-23 20:00] VITALS: BP 154/52
--- NOTE | 2020-03-23 20:00 | NUR ---
MEDS PCP IN TO MONITOR BLOOD SUGAR AND V/S, STABLE. SHIFT ASSESSMENT DONE, PLEASE REFER TO CHART. DUE MEDS ADMINISTERED, TOLERATED WELL. PT VERBALIZES THAT SHE WANTS TO STAY IN THE WHEELCHAIR FOR NOW. CALL LIGHT WITHIN REACH. WILL MONITOR PT. Addendum: 03/23/20 at 2107 by MIKE RAMOS RN RN Amended: Links added.
--- NOTE | 2020-03-23 22:30 | NUR ---
BATHE PCP ASSISTED PT BACK TO BED AND GAVE PT A BED BATH, TOLERATED ACTIVITY WELL. KEPT COMFORTABLE IN BED. ENCOURAGED TO REST AND SLEEP.
[2020-03-24] VITALS: BP_SYST 123; BP_SYST 135; BP_DIAS 48; BP_DIAS 54
--- NOTE | 2020-03-24 01:44 | NUR ---
ROUNDS PT RESTING WELL, FAIRLY ASLEEP. NO DISTRESS NOTED. KEPT COMFORTABLE IN BED. WILL CONTINUE TO MONITOR. CALL LIGHT WITHIN REACH.
[2020-03-24 04:00] VITALS: BP 129/60
[2020-03-24 04:59] LABS: BASOPHILS % (AUTO) 1.2 % (0.0-5.0); EOSINOPHILS % (AUTO) 9.6 % (0.0-8.0); HEMATOCRIT 25.9 % (36-48); MEAN CORPUSCULAR HEMOGLOBIN 27.3 pg (27.0-33.0); MEAN CORPUSCULAR HGB CONC 30.5 g/dL (32.0-36.0); MEAN CORPUSCULAR VOLUME 89.6 fL (79-99); MONOCYTES % (AUTO) 7.5 % (3.0-13.0); NEUTROPHILS % (AUTO) 51.5 % (40.0-77.0); PLATELET COUNT (AUTO) 275 K/uL (130-400); RED BLOOD CELL COUNT(AUTO) 2.89 MIL/uL (4.00-5.50); WHITE BLOOD COUNT (AUTO) 4.3 K/uL (4.8-10.8)
[2020-03-24 05:20] LABS: BILIRUBIN,TOTAL 0.2 mg/dL (0.2-1.0); CREATININE 1.4 mg/dL (0.5-1.5); POTASSIUM 4.5 mmol/L (3.5-5.1); TOTAL PROTEIN, SERUM 6.9 g/dL (6.0-8.3)
--- NOTE | 2020-03-24 05:35 | NUR ---
PIV PT'S PIV IS INFILTRATED AND IS ALREADY OUT. DISCONTINUED PIV WITH CATHETER INTACT. RE-INSERTED G20 TO RFA. PT TOLERATED RE-INSERTION WELL. KEPT COMFORTABLE IN BED. FOR MORE CARE. Addendum: 03/24/20 at 0613 by MIKE RAMOS RN RN Amended: Links added.
[2020-03-24] MEDS: INSULIN HUMULIN R 100 UNIT/ML 3ML SQ SCH ×4 (06:13→20:00)
[2020-03-24 08:00] VITALS: BP 140/48
[2020-03-24] MEDS: HYDROCHLOROTHIAZIDE 25 MG TABLET PO SCH (08:01)
[2020-03-24] MEDS: METFORMIN HCL 500 MG TABLET PO SCH (08:01)
[2020-03-24] MEDS: METOPROLOL TARTRATE 25 MG TAB PO SCH ×2 (08:01→19:57)
[2020-03-24] MEDS: IRON SUCROSE COMPLEX 100 MG in SODIUM CHLORIDE 0.9% 50 ML IV SCH (08:13)
[2020-03-24] MEDS: NYSTATIN 15 GM POWDER TP SCH ×2 (08:24→19:59)
[2020-03-24 11:40] VITALS: BP 120/50
--- NOTE | 2020-03-24 14:30 | NUR ---
RD UPDATE - EDUCATION REINFORCEMENT Received call from Pt with additional nutrition questions regarding High Iron foods. RD answered all Pt questions. Pt referred to MD regarding Iron supplement dosage recommendations. RD to continue to monitor. Please notify as additional nutrition concerns arise. Thank you.
--- NOTE | 2020-03-24 15:12 | NUR ---
CM Note: [facility] pending approval and delivery for bariatric wheelchair and walker. CM faxed order, clinicals, PT to [facility] [facility], confirmation received. As per Bozena duong/[employer] bariatric wheelchair $293.64 and bariatric walker no wheels $55, confirmation received. Approved per Melissa Director, letter signed and attached to request. Pt was made aware this morning regarding request and ryan, verbalized unable to purchase privately requested assistance. Pt pending approval and delivery. Primary nurse aware. CM to cont to follow up. Pt requested EMS transport to home once ready to DC, made aware [facility] will give bill by mail once transport done and pt will be responsible for bill, pt verbalized understanding. EMS arranged and faxed for today, primary nurse aware to call [facility] once pt ready to DC. CM to cont to follow up.
[2020-03-24 16:00] VITALS: BP 131/57
--- NOTE | 2020-03-24 16:04 | NUR ---
CM Note: [employer] approval pending to deliver DME CM spoke to Kelsey duong/[employer], pt has approval, verbalized bariatric wheelchair and bariatric walker no wheels will be delivered tomorrow in the hospital. Primary nurse aware. EMS arranged for tomorrow, primary nurse to call [facility] once pt ready to DC. Jaja EDGING MACHINE FEEDER aware, plan dc for tomorrow. CM to cont to follow up.
[2020-03-24] MEDS: HONEY 1 APPL/ML TUBE TP SCH (19:58)
[2020-03-24] MEDS: ACETAMINOPHEN 325 MG TAB PO PRN (19:58)
[2020-03-24 20:00] VITALS: BP 127/43
--- NOTE | 2020-03-24 20:00 | NUR ---
MEDS SHIFT ASSESSMENT DONE, PLEASE REFER TO CHART. PT CLAIMS OF PAINS TO THE RT STUMP. DUE MEDS ADMINISTERED, TYLENOL PO GIVEN FOR PAIN. WOUND DRESSING TO RT AKA DONE, CLEANSED WITH SALINE , PAT DRY THEN COVERED WITH GAUZE AND SECURED WITH TAPE. RE-POSITIONED IN BED COMFORTABLY. CALL LIGHT WITHIN REACH. WILL MONITOR PT. Addendum: 03/24/20 at 2225 by MIKE RAMOS RN RN Amended: Links added.
--- NOTE | 2020-03-24 22:25 | NUR ---
BATHE PCP IN AND GAVE PT A BED BATH, TOLERATED ACTIVITY WELL. RE-POSITIONED COMFORTABLY IN BED. CALL LIGHT WITHIN REACH. WILL MONITOR PT.
[2020-03-25] VITALS: BP 135/54
--- NOTE | 2020-03-25 01:53 | NUR ---
ROUNDS PT FAIRLY ASLEEP. NO DISTRESS NOTED. KEPT COMFORTABLE AND UNDISTURBED. CALL LIGHT WITHIN REACH. FOR MORE CARE.
[2020-03-25 04:00] VITALS: BP 152/62
--- NOTE | 2020-03-25 04:51 | NUR ---
WC PT REQUESTED TO BE PLACED IN THE WHEELCHAIR. PCP ASSISTED PT. CALL LIGHT WITHIN REACH. FOR MORE CARE.
[2020-03-25] MEDS: INSULIN HUMULIN R 100 UNIT/ML 3ML SQ SCH ×3 (06:07→16:08)
[2020-03-25 08:33] VITALS: BP 153/73
[2020-03-25] MEDS: HYDROCHLOROTHIAZIDE 25 MG TABLET PO SCH (10:04)
[2020-03-25] MEDS: ACETAMINOPHEN 325 MG TAB PO PRN (10:04)
[2020-03-25] MEDS: METOPROLOL TARTRATE 25 MG TAB PO SCH (10:05)
[2020-03-25] MEDS: METFORMIN HCL 500 MG TABLET PO SCH (10:05)
[2020-03-25] MEDS: NYSTATIN 15 GM POWDER TP SCH (10:06)
[2020-03-25 12:16] VITALS: BP 141/49
[2020-03-25] MEDS ORDERED: METF-446 PO (15:51)
[2020-03-25] MEDS: IRON SUCROSE COMPLEX 100 MG in SODIUM CHLORIDE 0.9% 50 ML IV SCH (16:09)
[2020-03-25 17:44] VITALS: BP 148/60
--- NOTE | 2020-03-25 18:00 | NUR ---
PT D/C PAPER WORK GIVEN, PENDING EMS TO TRANSPORT PATIENT HOME. INSTRUCTIONS GIVEN USING TEACH BACK TECHNIQUE RE; NEW MEDS, HOME MEDS AND HOW TO CHANGE DRESSING AND WHEN TO CALL 911 OR MD OR SURGEON. Follow up with Dr. Dutton in 3 to 5 days. MAY GO A WALK IN OR CALL TO SET UP AN APPOINTMENT. Follow up with Dr. Vargas in 1 week. CALL TO SET UP AN APPOINTMENT AT PHONE; [phone]. ADDRESS; [phone] Follow up with Dr. Baer in 1 week. CALL TO SET UP AN APPOINTMENT AT PHONE; [phone]. ADDRESS; [address]. 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 CALL YOUR PRIMARY DOCTOR OR SURGEON IF BLEEDING OCCURS AND ITS NOT CONTROLLED WITH LIGHT PRESSURE. CALL YOUR SURGEON IF DRAINAGE, PUS, SWELLING, REDNESS, HOT TO TOUCH OR PAIN OCCURS AT THE SURGICAL SITE. MAKE SURE TO REPOSITION YOURSELF AT HOME TO PREVENT PRESSURE ULCERS AT HOME. BY TURNING EVERY 2 HOURS. TO YOUR RIGHT OR LEFT SIDE. MAKE SURE TO CHANGE DRESSING AT HOME DAILY OR NEEDED IF YOU NOTICE ANY DRAINAGE. DRESSING; 4X4'S GAUZES, AND TAPE. MAKE SURE TO KEEP DRESSING DRY AT ALL TIMES FOR PROPER HEALING. REDUCING MOISTURE WILL HELP HEALING OF YOUR INCISION. MAKE SURE TO USE WALKER OR WHEELCHAIR AND TRANSFER WITH ASSITANCE TO PRVENT RIGHT STUMP INJURY. IV OUT INTACT, NO BLEEDING , DENIES ANY QUESTIONS, CHARGE NURSE YASMANI CHANGING DRESSING PRIOR TO D.C HOME, AAOX3, DENIES ANY DISTRESS AT THIS TIME. DENIES ANY QUESTIONS. WOUND CLOSED WELL APPROXIMATED WITH PHIL, NO PINK OR REDNESS, NO SWELLING NO DRAINAGE THAT COULD SIGN INFECTION. NO BLEEDING. TEACHING GIVEN BY STACY GRUBER.
--- NOTE | 2020-03-25 20:50 | NUR ---
DISCHARGE NOTE: PT DISCHARGED VIA EMS. PT FULLY AWAKE, ALERT AND RESPONSIVE. WHEELCHAIR , WALKER AND BELONGINGS WERE BROUGHT WITH HER. HOME DISCHARGE INSTRUCTIONS GIVEN BY DAY SHIFT RN (SAKSHI). NO UNTOWARD INCIDENT HAPPENED. DISCHARGE TO HOME. NO APPARENT DISTRESS / DISCOMFORT NOTED.
== END 2020-03-25 20:55 | disposition home or self-care (01) | DRG 564 ==
LOC: EDH 11:39 → EEVIPCON 11:39 → OBSVTOIN 11:40 → INTOOBSV 11:40 → EDHIP 11:40 → 3BH 23:03
PROVIDERS: ADMIT Hospitalist; ATTEND Hospitalist
DX: T87.89 Other complications of amputation stump (principal); A48.0 Gas gangrene; M72.6 Necrotizing fasciitis; D62 Acute posthemorrhagic anemia; E11.52 Type 2 diabetes mellitus with diabetic peripheral angiopathy with gangrene; B35.1 Tinea unguium; E11.22 Type 2 diabetes mellitus with diabetic chronic kidney disease; E11.649 Type 2 diabetes mellitus with hypoglycemia without coma; E78.5 Hyperlipidemia, unspecified; I12.9 Hypertensive chronic kidney disease with stage 1 through stage 4 chronic kidney disease, or unspecified chronic kidney disease; N18.9 Chronic kidney disease, unspecified; E11.42 Type 2 diabetes mellitus with diabetic polyneuropathy; E11.65 Type 2 diabetes mellitus with hyperglycemia; E66.9 Obesity, unspecified; Y83.5 Amputation of limb(s) as the cause of abnormal reaction of the patient, or of later complication, without mention of misadventure at the time of the procedure; W01.0XXA Fall on same level from slipping, tripping and stumbling without subsequent striking against object, initial encounter; Y93.89 Activity, other specified; Y92.89 Other specified places as the place of occurrence of the external cause; Y99.8 Other external cause status; Z68.37 Body mass index [BMI] 37.0-37.9, adult; Z79.84 Long term (current) use of oral hypoglycemic drugs; Z91.19 Patient's noncompliance with other medical treatment and regimen; Z89.611 Acquired absence of right leg above knee; Z88.0 Allergy status to penicillin; Z88.2 Allergy status to sulfonamides; Z88.8 Allergy status to other drugs, medicaments and biological substances; Z82.5 Family history of asthma and other chronic lower respiratory diseases
CPT/HCPCS: 36415; 73700; 80048; 80053; 82947; 82948; 83036; 84436; 84443; 84479; 84480; 84481; 85025; 85610; 85730; 86850; 86900; 86901; 97039; G0378; J0885; J1756

== ENCOUNTER → 2020-06-22 | Emergency (ER) | payer MEDICAID ==
[~2020-06-22] MED LIST changes: -CHOL200026 PO; -GLIP10TA9 PO
== END ==
LOC: EDH 16:12
DX: S43.402A Unspecified sprain of left shoulder joint, initial encounter (principal); I10 Essential (primary) hypertension; E11.9 Type 2 diabetes mellitus without complications; Z88.1 Allergy status to other antibiotic agents; Z98.890 Other specified postprocedural states; X58.XXXA Exposure to other specified factors, initial encounter; Y93.89 Activity, other specified; Y92.89 Other specified places as the place of occurrence of the external cause; Y99.8 Other external cause status
CPT/HCPCS: 71045; 73030; 93005

== ENCOUNTER 2020-11-21 23:54 | Emergency (ER) | payer MEDICAID | END 2020-11-22 02:19 | disposition home or self-care (01) | LOC: EDH 23:54 | DX: S16.1XXA Strain of muscle, fascia and tendon at neck level, initial encounter (principal); S39.012A Strain of muscle, fascia and tendon of lower back, initial encounter; S29.012A Strain of muscle and tendon of back wall of thorax, initial encounter; S00.83XA Contusion of other part of head, initial encounter; E11.9 Type 2 diabetes mellitus without complications; I10 Essential (primary) hypertension; Z88.1 Allergy status to other antibiotic agents; E66.9 Obesity, unspecified; Z68.41 Body mass index [BMI] 40.0-44.9, adult; W01.0XXA Fall on same level from slipping, tripping and stumbling without subsequent striking against object, initial encounter; Y93.89 Activity, other specified; Y92.89 Other specified places as the place of occurrence of the external cause; Y99.8 Other external cause status | CPT/HCPCS: 70450; 70486; 71250; 72125; 74176 ==

== ENCOUNTER 2022-07-28 21:15 | Inpatient (IN) | payer MEDICAID ==
[~2022-07-28] VITALS: Ht 165.1 cm; Wt 155.4 kg
[2022-07-28 21:45] LABS: BASOPHILS % (AUTO) 0.5 % (0.0-5.0); EOSINOPHILS % (AUTO) 2.2 % (0.0-8.0); HEMATOCRIT 32.9 % (36-48); MEAN CORPUSCULAR HEMOGLOBIN 25.8 pg (27.0-33.0); MEAN CORPUSCULAR HGB CONC 29.8 g/dL (32.0-36.0); MEAN CORPUSCULAR VOLUME 86.6 fL (79-99); MONOCYTES % (AUTO) 5.7 % (3.0-13.0); NEUTROPHILS % (AUTO) 82.2 % (40.0-77.0); PLATELET COUNT (AUTO) 221 K/uL (130-400); WHITE BLOOD COUNT (AUTO) 10.3 K/uL (4.8-10.8)
[2022-07-28 21:55] LABS: CREATININE 2.9 mg/dL (0.5-1.5)
[2022-07-28 22:10] LABS: B-TYPE NATRIURETIC PEPTIDE 1110 pg/mL (0-100)
[2022-07-28 22:11] LABS: ALBUMIN 2.5 g/dL (3.5-5.0); TOTAL PROTEIN, SERUM 7.3 g/dL (6.0-8.3)
[2022-07-29] VITALS (36 sets, daily range): BP systolic 106–190; BP diastolic 43–120
[2022-07-29 01:13] LABS: APPEARANCE,URINE CLOUDY (CLEAR); BILIRUBIN,URINE NEGATIVE (NEGATIVE); COLOR,URINE LIGHT-YELLOW (YELLOW); GLUCOSE, URINE (UA) 300 mg/dL (NEGATIVE); KETONES,URINE 5 mg/dL (NEGATIVE); LEUKOCYTE ESTERASE ,URINE NEGATIVE Leu/uL (NEGATIVE); NITRATE,URINE NEGATIVE (NEGATIVE); OCCULT BLOOD,URINE MODERATE (NEGATIVE); PROTEIN,URINE 300 mg/dL (NEGATIVE); UROBILINOGEN,URINE 0.2 mg/dL (0.2-1.0)
[2022-07-29 01:18] LABS: BACTERIA,URINE RARE /HPF (None Seen); MUCUS,URINE RARE LPF (None Seen); RBC,URINE 0-1 /HPF (0-1); SQUAMOUS EPITHELIAL CELL,UR FEW /HPF (0-2)
[2022-07-29] MEDS ORDERED: FUROSEMIDE 20MG VIAL IV STA (02:20)
[2022-07-29 02:56] LABS: ABG BASE EXCESS -5.5 mmol/L (-2.0-3.0); ABG HCO3 21.9 mmol/L (21.0-28.0); ABG OXYGEN SATURATION 89.3 % (95.0-99.0); ABG PCO2 50 mmHg (32-45)
[2022-07-29] MEDS ORDERED: POLYETHYLENE GLYCOL 3350 17 GM POWD.PACK PO PRN (03:00)
[2022-07-29] MEDS ORDERED: ACETAMINOPHEN 650 MG SUPPOSITORY RC PRN (03:00)
[2022-07-29] MEDS ORDERED: ONDANSETRON 4MG INJ IVP PRN (03:00)
[2022-07-29] MEDS ORDERED: MORPHINE 2 MG SYG IVP ONE (03:00)
[2022-07-29] MEDS ORDERED: LACTULOSE 20 GM/30 ML UDCUP PO PRN (03:00)
[2022-07-29] MEDS ORDERED: HYDRALAZINE 20MG/ML VIAL IV PRN (03:00)
[2022-07-29] MEDS ORDERED: IPRATROPIUM/ALBUTEROL SULFATE 3 ML SOLUTION IH SCH (03:00)
[2022-07-29 03:01] LABS: AMPHET/METH SCREEN,URINE NEGATIVE (NEGATIVE); BARBITURATE SCREEN, URINE NEGATIVE (NEGATIVE); BENZODIAZEPINES SCREEN,URINE NEGATIVE (NEGATIVE); CANNABINOID SCREEN,URINE NEGATIVE (NEGATIVE); COCAINE SCREEN,URINE NEGATIVE (NEGATIVE); OPIATE SCREEN,URINE NEGATIVE (NEGATIVE); PHENCYCLIDINE SCREEN,URINE NEGATIVE (NEGATIVE)
[2022-07-29 03:37] LABS: CHLORIDE,URINE RANDOM 117 mmol/L (110-250); POTASSIUM,URINE RANDOM 36 mmol/L (25-125); SODIUM,URINE RANDOM 108 mmol/l (40-220)
[2022-07-29] MEDS ORDERED: DEXTROSE 50%-WATER 50 ML DISP.SYRIN IV PRN (04:00)
[2022-07-29] MEDS ORDERED: GLUCAGON 1MG KIT 1 MG ML IM PRN (04:00)
[2022-07-29] MEDS: DOXYCYCLINE HYCLATE 100 MG TABLET PO SCH ×3 (04:13→20:57)
[2022-07-29] MEDS: IPRATROPIUM/ALBUTEROL SULFATE 3 ML SOLUTION IH SCH ×3 (06:00→23:36)
[2022-07-29 06:41] LABS: HEMOGLOBIN A1C 5.8 % (4.0-6.0)
[2022-07-29] MEDS: ALBUTEROL 0.083% 2.5 MG/3 ML INH IH PRN (06:54)
[2022-07-29] MEDS: INSULIN HUMULIN R 100 UNIT/ML 3ML SQ SCH ×4 (07:30→21:00)
[2022-07-29 07:33] LABS: ABG BASE EXCESS -7.9 mmol/L (-2.0-3.0); ABG HCO3 20.7 mmol/L (21.0-28.0); ABG OXYGEN SATURATION 97.4 % (95.0-99.0); ABG PCO2 54 mmHg (32-45)
[2022-07-29] MEDS: DOCUSATE SODIUM 100 MG CAP PO SCH ×2 (07:57→20:57)
[2022-07-29] MEDS: HEPARIN 5,000 UNIT VIAL SQ SCH ×2 (07:58→20:57)
[2022-07-29] MEDS: CLONIDINE HCL 0.1 MG TABLET PO PRN ×2 (08:04→18:35)
[2022-07-29] MEDS ORDERED: FUROSEMIDE 20MG VIAL IV SCH (09:00)
[2022-07-29] MEDS ORDERED: FAMOTIDINE 20MG TAB PO SCH (09:00)
[2022-07-29] MEDS ORDERED: FUROSEMIDE 40MG VIAL IV SCH (09:38)
[2022-07-29] MEDS ORDERED: LABE100T7 PO (10:17)
[2022-07-29] MEDS ORDERED: FERR325T29 PO (10:17)
[2022-07-29] MEDS ORDERED: ERGO500093 PO (10:17)
[2022-07-29] MEDS ORDERED: LORA10TA7 PO (10:17)
[2022-07-29] MEDS ORDERED: HYDR100T27 PO (10:17)
[2022-07-29] MEDS ORDERED: LINA5TAB PO (10:17)
[2022-07-29] MEDS ORDERED: AMLO-257 PO (10:17)
[2022-07-29] MEDS ORDERED: RENAL DOSE IV PRN (10:30)
[2022-07-29] MEDS: AMLODIPINE 5 MG TAB PO SCH (10:57)
[2022-07-29] MEDS: LABETALOL HCL 100 MG TABLET PO SCH ×2 (10:58→20:58)
[2022-07-29] MEDS: ERGOCALCIFEROL (VITAMIN D2) 50,000 UNIT CAPSULE PO SCH (10:58)
[2022-07-29] MEDS: LORATADINE 10 MG TABLET PO SCH (10:59)
[2022-07-29] MEDS ORDERED: FERROUS SULFATE 325 MG TABLET.DR PO SCH (11:00)
[2022-07-29] MEDS: LEVOFLOXACIN 500 MG/D5W 100 ML 100 ML IV SCH (11:42)
[2022-07-29] MEDS: FUROSEMIDE 40MG VIAL IV SCH (12:00)
[2022-07-29] MEDS ORDERED: METOLAZONE 2.5 MG TABLET PO SCH (12:00)
[2022-07-29 14:17] LABS: THYROID STIMULATING HORMONE 2.63 uIU/mL (0.36-3.74)
[2022-07-29 15:01] LABS: ABG BASE EXCESS -6.3 mmol/L (-2.0-3.0); ABG HCO3 19.3 mmol/L (21.0-28.0); ABG OXYGEN SATURATION 89.6 % (95.0-99.0); ABG PCO2 39 mmHg (32-45)
[2022-07-29] MEDS: HYDRALAZINE 25MG TABLET PO SCH (20:56)
[2022-07-29] MEDS: LATANOPROST 2.5 ML DROPS OU SCH (21:49)
[2022-07-29] MEDS: ARTIFICAL TEARS SOL 15 ML OU SCH (21:52)
[2022-07-29 22:10] LABS: PROTEIN,URINE RANDOM 1444.3 mg/dL (0-11.9)
[2022-07-30] VITALS (19 sets, daily range): BP systolic 95–170; BP diastolic 45–86
[2022-07-30] MEDS: FUROSEMIDE 40MG VIAL IV SCH ×2 (00:09→11:56)
[2022-07-30 04:40] LABS: BASOPHILS % (AUTO) 0.5 % (0.0-5.0); EOSINOPHILS % (AUTO) 2.4 % (0.0-8.0); HEMATOCRIT 27.7 % (36-48); LYMPHOCYTES % (AUTO) 10.4 % (21.0-51.0); MEAN CORPUSCULAR HEMOGLOBIN 26.1 pg (27.0-33.0); MEAN CORPUSCULAR HGB CONC 29.2 g/dL (32.0-36.0); MEAN CORPUSCULAR VOLUME 89.4 fL (79-99); MONOCYTES % (AUTO) 5.6 % (3.0-13.0); NEUTROPHILS % (AUTO) 80.7 % (40.0-77.0); PLATELET COUNT (AUTO) 117 K/uL (130-400); RED CELL DISTRIBUTION WIDTH 17.1 % (11.0-15.5)
[2022-07-30 05:00] LABS: % IRON SATURATION 8.3 % (22-44)
[2022-07-30 05:05] LABS: CREATININE 3.6 mg/dL (0.5-1.5); MAGNESIUM 1.6 mg/dL (1.80-2.40); PHOSPHORUS 5.4 mg/dL (2.5-4.9); POTASSIUM 4.6 mmol/L (3.5-5.1); THYROID STIMULATING HORMONE 2.58 uIU/mL (0.36-3.74)
[2022-07-30] MEDS: IPRATROPIUM/ALBUTEROL SULFATE 3 ML SOLUTION IH SCH ×4 (06:15→23:50)
[2022-07-30] MEDS: INSULIN HUMULIN R 100 UNIT/ML 3ML SQ SCH ×4 (06:32→20:39)
[2022-07-30 07:13] LABS: ABG BASE EXCESS -5.7 mmol/L (-2.0-3.0); ABG HCO3 21.2 mmol/L (21.0-28.0); ABG OXYGEN SATURATION 93.3 % (95.0-99.0); ABG PCO2 47 mmHg (32-45)
[2022-07-30] MEDS: FERROUS SULFATE 325 MG TABLET.DR PO SCH (08:57)
[2022-07-30] MEDS: LORATADINE 10 MG TABLET PO SCH (08:57)
[2022-07-30] MEDS: DOCUSATE SODIUM 100 MG CAP PO SCH ×2 (08:57→20:27)
[2022-07-30] MEDS: FAMOTIDINE 20MG TAB PO SCH (08:57)
[2022-07-30] MEDS: HEPARIN 5,000 UNIT VIAL SQ SCH ×2 (08:59→20:19)
[2022-07-30] MEDS ORDERED: METOLAZONE 2.5 MG TABLET PO SCH ×2 (09:00→11:30)
[2022-07-30] MEDS: ACETAMINOPHEN 325 MG TAB PO PRN (09:00)
[2022-07-30] MEDS: LABETALOL HCL 100 MG TABLET PO SCH ×2 (09:01→20:17)
[2022-07-30] MEDS: HYDRALAZINE 25MG TABLET PO SCH ×2 (09:07→20:17)
[2022-07-30] MEDS: ARTIFICAL TEARS SOL 15 ML OU SCH ×3 (09:08→20:40)
[2022-07-30] MEDS: AMLODIPINE 5 MG TAB PO SCH (09:08)
[2022-07-30] MEDS: DOXYCYCLINE HYCLATE 100 MG TABLET PO SCH ×2 (09:08→20:17)
[2022-07-30] MEDS: POLYETHYLENE GLYCOL 3350 17 GM POWD.PACK PO SCH (09:09)
[2022-07-30] MEDS: IRON SUCROSE COMPLEX 300 MG in 0.9% NACL 250ML 250 ML IV SCH (09:14)
[2022-07-30] MEDS: LEVOFLOXACIN 500 MG/D5W 100 ML 100 ML IV SCH (11:12)
[2022-07-30] MEDS: ALBUTEROL 0.083% 2.5 MG/3 ML INH IH PRN (23:50)
[2022-07-31 03:36] LABS: BASOPHILS % (AUTO) 0.5 % (0.0-5.0); EOSINOPHILS % (AUTO) 1.9 % (0.0-8.0); HEMATOCRIT 27.3 % (36-48); LYMPHOCYTES % (AUTO) 9.7 % (21.0-51.0); MEAN CORPUSCULAR HEMOGLOBIN 25.7 pg (27.0-33.0); MEAN CORPUSCULAR HGB CONC 29.3 g/dL (32.0-36.0); MEAN CORPUSCULAR VOLUME 87.8 fL (79-99); NEUTROPHILS % (AUTO) 81.5 % (40.0-77.0); PLATELET COUNT (AUTO) 166 K/uL (130-400); RED BLOOD CELL COUNT(AUTO) 3.11 MIL/uL (4.00-5.50); RED CELL DISTRIBUTION WIDTH 17.3 % (11.0-15.5); WHITE BLOOD COUNT (AUTO) 9.8 K/uL (4.8-10.8)
[2022-07-31 03:45] LABS: CREATININE 4.1 mg/dL (0.5-1.5); MAGNESIUM 1.5 mg/dL (1.80-2.40); POTASSIUM 4.7 mmol/L (3.5-5.1)
[2022-07-31 04:28] VITALS: BP 113/47
[2022-07-31 04:45] LABS: B-TYPE NATRIURETIC PEPTIDE 322 pg/mL (0-100)
[2022-07-31] MEDS: IPRATROPIUM/ALBUTEROL SULFATE 3 ML SOLUTION IH SCH ×2 (06:00→07:00)
[2022-07-31] MEDS: INSULIN HUMULIN R 100 UNIT/ML 3ML SQ SCH ×4 (06:08→20:55)
[2022-07-31] MEDS ORDERED: COMPOUND IV MISC 1 EACH IVSOLN MISC PRN (07:00)
[2022-07-31] MEDS: ALBUTEROL 0.083% 2.5 MG/3 ML INH IH PRN (07:05)
[2022-07-31] MEDS: FERROUS SULFATE 325 MG TABLET.DR PO SCH (08:07)
[2022-07-31] MEDS: DOXYCYCLINE HYCLATE 100 MG TABLET PO SCH ×2 (08:07→20:17)
[2022-07-31] MEDS: LABETALOL HCL 100 MG TABLET PO SCH ×2 (08:08→20:17)
[2022-07-31] MEDS: HYDRALAZINE 25MG TABLET PO SCH ×2 (08:08→20:18)
[2022-07-31] MEDS: FAMOTIDINE 20MG TAB PO SCH (08:09)
[2022-07-31] MEDS: LORATADINE 10 MG TABLET PO SCH (08:09)
[2022-07-31] MEDS: AMLODIPINE 5 MG TAB PO SCH (08:10)
[2022-07-31] MEDS: DOCUSATE SODIUM 100 MG CAP PO SCH ×2 (08:10→20:17)
[2022-07-31] MEDS: POLYETHYLENE GLYCOL 3350 17 GM POWD.PACK PO SCH (08:10)
[2022-07-31] MEDS: HEPARIN 5,000 UNIT VIAL SQ SCH ×2 (08:11→20:21)
[2022-07-31] MEDS: ARTIFICAL TEARS SOL 15 ML OU SCH ×3 (08:13→20:18)
[2022-07-31 08:21] VITALS: BP 144/63
[2022-07-31] MEDS: IRON SUCROSE COMPLEX 300 MG in 0.9% NACL 250ML 250 ML IV SCH (08:27)
[2022-07-31] MEDS: IPRATROPIUM 0.5 MG/2.5 ML INH IH SCH ×3 (11:19→23:16)
[2022-07-31] MEDS: ALBUTEROL 0.083% 2.5 MG/3 ML INH IH SCH ×3 (11:19→23:16)
[2022-07-31 12:00] VITALS: BP 90/35
[2022-07-31] MEDS: FUROSEMIDE 40MG VIAL IV SCH ×3 (12:42→23:20)
[2022-07-31 12:49] VITALS: BP 140/59
[2022-07-31] MEDS: LEVOFLOXACIN 500 MG/D5W 100 ML 100 ML IV SCH (15:14)
[2022-07-31 15:56] VITALS: BP 81/52
[2022-07-31] MEDS: MAGNESIUM 2GM PREMIX 50ML 50 ML IV PRN (17:43)
[2022-07-31 19:51] VITALS: BP 136/60
[2022-07-31] MEDS: LATANOPROST 2.5 ML DROPS OU SCH ×2 (20:19→21:00)
[2022-08-01] VITALS (8 sets, daily range): BP systolic 101–136; BP diastolic 43–64
[2022-08-01 03:26] LABS: BASOPHILS % (AUTO) 0.4 % (0.0-5.0); EOSINOPHILS % (AUTO) 2.5 % (0.0-8.0); HEMATOCRIT 27.4 % (36-48); LYMPHOCYTES % (AUTO) 10.6 % (21.0-51.0); MEAN CORPUSCULAR HEMOGLOBIN 26.1 pg (27.0-33.0); MEAN CORPUSCULAR HGB CONC 29.2 g/dL (32.0-36.0); MEAN CORPUSCULAR VOLUME 89.3 fL (79-99); MONOCYTES % (AUTO) 7.3 % (3.0-13.0); NEUTROPHILS % (AUTO) 78.6 % (40.0-77.0); PLATELET COUNT (AUTO) 159 K/uL (130-400); RED BLOOD CELL COUNT(AUTO) 3.07 MIL/uL (4.00-5.50); RED CELL DISTRIBUTION WIDTH 17.2 % (11.0-15.5); WHITE BLOOD COUNT (AUTO) 8.5 K/uL (4.8-10.8)
[2022-08-01 03:36] LABS: CREATININE 4.2 mg/dL (0.5-1.5); MAGNESIUM 1.7 mg/dL (1.80-2.40); POTASSIUM 4.6 mmol/L (3.5-5.1)
[2022-08-01 04:04] LABS: B-TYPE NATRIURETIC PEPTIDE 375 pg/mL (0-100)
[2022-08-01] MEDS: MAGNESIUM 2GM PREMIX 50ML 50 ML IV PRN (05:15)
[2022-08-01] MEDS: INSULIN HUMULIN R 100 UNIT/ML 3ML SQ SCH ×4 (05:50→21:00)
[2022-08-01] MEDS: IPRATROPIUM 0.5 MG/2.5 ML INH IH SCH ×4 (06:18→23:06)
[2022-08-01] MEDS: ALBUTEROL 0.083% 2.5 MG/3 ML INH IH SCH ×4 (06:18→23:06)
[2022-08-01] MEDS: IRON SUCROSE COMPLEX 300 MG in 0.9% NACL 250ML 250 ML IV SCH (09:02)
[2022-08-01] MEDS: DOXYCYCLINE HYCLATE 100 MG TABLET PO SCH ×2 (09:02→21:24)
[2022-08-01] MEDS: FERROUS SULFATE 325 MG TABLET.DR PO SCH (09:03)
[2022-08-01] MEDS: POLYETHYLENE GLYCOL 3350 17 GM POWD.PACK PO SCH (09:03)
[2022-08-01] MEDS: DOCUSATE SODIUM 100 MG CAP PO SCH ×2 (09:03→21:24)
[2022-08-01] MEDS: FAMOTIDINE 20MG TAB PO SCH (09:03)
[2022-08-01] MEDS: ARTIFICAL TEARS SOL 15 ML OU SCH ×3 (09:04→21:26)
[2022-08-01] MEDS: EPOETIN ALFA-EPBX (NON-ESRD) 10,000 UNIT/ML VIAL SQ SCH (09:04)
[2022-08-01] MEDS: LORATADINE 10 MG TABLET PO SCH (09:05)
[2022-08-01] MEDS: LABETALOL HCL 100 MG TABLET PO SCH ×2 (09:06→21:25)
[2022-08-01] MEDS: HYDRALAZINE 25MG TABLET PO SCH ×2 (09:06→21:25)
[2022-08-01] MEDS: AMLODIPINE 5 MG TAB PO SCH (09:06)
[2022-08-01] MEDS: HEPARIN 5,000 UNIT VIAL SQ SCH ×2 (09:47→21:24)
[2022-08-01] MEDS: FUROSEMIDE 40MG VIAL IV SCH (12:11)
[2022-08-01] MEDS: MUPIROCIN OINTMENT 22 GM TUBE TP SCH (18:19)
[2022-08-01] MEDS: LATANOPROST 2.5 ML DROPS OU SCH (21:27)
[2022-08-02 04:00] VITALS: BP 124/49
[2022-08-02 04:05] LABS: BASOPHILS % (AUTO) 0.3 % (0.0-5.0); HEMATOCRIT 26.6 % (36-48); LYMPHOCYTES % (AUTO) 10.4 % (21.0-51.0); MEAN CORPUSCULAR HGB CONC 29.7 g/dL (32.0-36.0); MEAN CORPUSCULAR VOLUME 87.5 fL (79-99); MONOCYTES % (AUTO) 7.4 % (3.0-13.0); NEUTROPHILS % (AUTO) 78.6 % (40.0-77.0); PLATELET COUNT (AUTO) 165 K/uL (130-400); RED BLOOD CELL COUNT(AUTO) 3.04 MIL/uL (4.00-5.50); RED CELL DISTRIBUTION WIDTH 17.2 % (11.0-15.5); WHITE BLOOD COUNT (AUTO) 8.9 K/uL (4.8-10.8)
[2022-08-02 04:16] LABS: B-TYPE NATRIURETIC PEPTIDE 314 pg/mL (0-100)
[2022-08-02 04:19] LABS: CREATININE 4.6 mg/dL (0.5-1.5); MAGNESIUM 1.8 mg/dL (1.80-2.40); POTASSIUM 4.8 mmol/L (3.5-5.1)
[2022-08-02] MEDS: MAGNESIUM 2GM PREMIX 50ML 50 ML IV PRN (04:36)
[2022-08-02] MEDS: INSULIN HUMULIN R 100 UNIT/ML 3ML SQ SCH ×4 (05:42→20:37)
[2022-08-02] MEDS: ALBUTEROL 0.083% 2.5 MG/3 ML INH IH SCH ×4 (07:05→23:20)
[2022-08-02] MEDS: IPRATROPIUM 0.5 MG/2.5 ML INH IH SCH ×4 (07:05→23:20)
[2022-08-02 07:30] VITALS: BP 102/43
[2022-08-02] MEDS: AMLODIPINE 5 MG TAB PO SCH (09:00)
[2022-08-02] MEDS: DOCUSATE SODIUM 100 MG CAP PO SCH ×2 (09:00→20:37)
[2022-08-02] MEDS: POLYETHYLENE GLYCOL 3350 17 GM POWD.PACK PO SCH (09:00)
[2022-08-02] MEDS: HYDRALAZINE 25MG TABLET PO SCH ×2 (09:00→20:21)
[2022-08-02] MEDS: LABETALOL HCL 100 MG TABLET PO SCH ×2 (09:00→20:20)
[2022-08-02] MEDS: FERROUS SULFATE 325 MG TABLET.DR PO SCH (09:45)
[2022-08-02] MEDS: DOXYCYCLINE HYCLATE 100 MG TABLET PO SCH ×2 (09:45→20:20)
[2022-08-02] MEDS: IRON SUCROSE COMPLEX 300 MG in 0.9% NACL 250ML 250 ML IV SCH (09:45)
[2022-08-02] MEDS: LORATADINE 10 MG TABLET PO SCH (09:46)
[2022-08-02] MEDS: FAMOTIDINE 20MG TAB PO SCH (09:46)
[2022-08-02] MEDS: HEPARIN 5,000 UNIT VIAL SQ SCH ×2 (09:47→21:45)
[2022-08-02] MEDS: ARTIFICAL TEARS SOL 15 ML OU SCH ×3 (09:49→21:07)
[2022-08-02 11:30] VITALS: BP 105/54
[2022-08-02] MEDS: FUROSEMIDE 40MG VIAL IV SCH ×3 (12:08→23:54)
[2022-08-02 15:30] VITALS: BP 130/49
[2022-08-02] MEDS: MUPIROCIN OINTMENT 22 GM TUBE TP SCH (17:49)
[2022-08-02 19:53] VITALS: BP 127/57
[2022-08-02] MEDS: ACETAMINOPHEN 325 MG TAB PO PRN (20:22)
[2022-08-02] MEDS: LATANOPROST 2.5 ML DROPS OU SCH (21:07)
[2022-08-03] VITALS (7 sets, daily range): BP systolic 90–144; BP diastolic 38–66
[2022-08-03 04:16] LABS: BASOPHILS % (AUTO) 0.5 % (0.0-5.0); EOSINOPHILS % (AUTO) 2.6 % (0.0-8.0); HEMATOCRIT 27.1 % (36-48); LYMPHOCYTES % (AUTO) 9.2 % (21.0-51.0); MEAN CORPUSCULAR HEMOGLOBIN 26.5 pg (27.0-33.0); MEAN CORPUSCULAR HGB CONC 29.5 g/dL (32.0-36.0); MEAN CORPUSCULAR VOLUME 89.7 fL (79-99); MONOCYTES % (AUTO) 8.2 % (3.0-13.0); NEUTROPHILS % (AUTO) 78.9 % (40.0-77.0); PLATELET COUNT (AUTO) 167 K/uL (130-400); RED BLOOD CELL COUNT(AUTO) 3.02 MIL/uL (4.00-5.50); RED CELL DISTRIBUTION WIDTH 17.5 % (11.0-15.5); WHITE BLOOD COUNT (AUTO) 8.6 K/uL (4.8-10.8)
[2022-08-03 04:29] LABS: INR 0.94 (0.85-1.15); PROTHROMBIN TIME 10.3 SEC (9.6-11.6)
[2022-08-03 04:31] LABS: PARTIAL THROMBOPLASTIN TIME 35.3 SEC (26.3-35.5)
[2022-08-03 04:37] LABS: CREATININE 4.7 mg/dL (0.5-1.5); POTASSIUM 4.7 mmol/L (3.5-5.1)
[2022-08-03] MEDS: INSULIN HUMULIN R 100 UNIT/ML 3ML SQ SCH ×4 (05:45→21:00)
[2022-08-03] MEDS: ALBUTEROL 0.083% 2.5 MG/3 ML INH IH SCH ×4 (07:12→23:47)
[2022-08-03] MEDS: IPRATROPIUM 0.5 MG/2.5 ML INH IH SCH ×4 (07:12→23:47)
[2022-08-03] MEDS: DOCUSATE SODIUM 100 MG CAP PO SCH ×2 (07:24→21:45)
[2022-08-03] MEDS: POLYETHYLENE GLYCOL 3350 17 GM POWD.PACK PO SCH (07:25)
[2022-08-03] MEDS: LORATADINE 10 MG TABLET PO SCH (09:08)
[2022-08-03] MEDS: FAMOTIDINE 20MG TAB PO SCH (09:08)
[2022-08-03] MEDS: AMLODIPINE 5 MG TAB PO SCH (09:08)
[2022-08-03] MEDS: DOXYCYCLINE HYCLATE 100 MG TABLET PO SCH ×2 (09:08→21:45)
[2022-08-03] MEDS: HEPARIN 5,000 UNIT VIAL SQ SCH ×2 (09:08→22:07)
[2022-08-03] MEDS: FERROUS SULFATE 325 MG TABLET.DR PO SCH (09:08)
[2022-08-03] MEDS: LABETALOL HCL 100 MG TABLET PO SCH ×2 (09:08→21:46)
[2022-08-03] MEDS: IRON SUCROSE COMPLEX 300 MG in 0.9% NACL 250ML 250 ML IV SCH (09:09)
[2022-08-03] MEDS: HYDRALAZINE 25MG TABLET PO SCH ×2 (09:09→21:48)
[2022-08-03] MEDS: ARTIFICAL TEARS SOL 15 ML OU SCH ×3 (09:20→21:45)
[2022-08-03] MEDS: FUROSEMIDE 40MG VIAL IV SCH (11:03)
[2022-08-03] MEDS: MUPIROCIN OINTMENT 22 GM TUBE TP SCH (17:30)
[2022-08-03] MEDS: SODIUM BICARBONATE 650 MG TAB PO SCH (21:46)
[2022-08-03] MEDS: LATANOPROST 2.5 ML DROPS OU SCH (21:48)
[2022-08-04 00:09] VITALS: BP 106/53
[2022-08-04] MEDS: FUROSEMIDE 40MG VIAL IV SCH ×3 (00:12→23:48)
[2022-08-04 05:06] LABS: BASOPHILS % (AUTO) 0.6 % (0.0-5.0); EOSINOPHILS % (AUTO) 2.2 % (0.0-8.0); HEMATOCRIT 27.2 % (36-48); MEAN CORPUSCULAR HEMOGLOBIN 26.3 pg (27.0-33.0); MEAN CORPUSCULAR HGB CONC 29.4 g/dL (32.0-36.0); MEAN CORPUSCULAR VOLUME 89.5 fL (79-99); MONOCYTES % (AUTO) 8.3 % (3.0-13.0); NEUTROPHILS % (AUTO) 78.3 % (40.0-77.0); PLATELET COUNT (AUTO) 167 K/uL (130-400); RED BLOOD CELL COUNT(AUTO) 3.04 MIL/uL (4.00-5.50); RED CELL DISTRIBUTION WIDTH 17.5 % (11.0-15.5); WHITE BLOOD COUNT (AUTO) 6.9 K/uL (4.8-10.8)
[2022-08-04 05:14] LABS: CREATININE 5.2 mg/dL (0.5-1.5)
[2022-08-04] MEDS: INSULIN HUMULIN R 100 UNIT/ML 3ML SQ SCH ×4 (06:15→21:00)
[2022-08-04 06:16] VITALS: BP 117/39
[2022-08-04] MEDS: ALBUTEROL 0.083% 2.5 MG/3 ML INH IH SCH ×3 (06:24→20:07)
[2022-08-04] MEDS: IPRATROPIUM 0.5 MG/2.5 ML INH IH SCH ×3 (06:25→20:07)
[2022-08-04 08:23] VITALS: BP 144/62
[2022-08-04] MEDS: ACETAMINOPHEN 325 MG TAB PO PRN (10:28)
[2022-08-04] MEDS: AMLODIPINE 5 MG TAB PO SCH (10:32)
[2022-08-04] MEDS: LABETALOL HCL 100 MG TABLET PO SCH ×2 (10:37→21:02)
[2022-08-04] MEDS: HYDRALAZINE 25MG TABLET PO SCH ×2 (10:37→21:02)
[2022-08-04] MEDS: FAMOTIDINE 20MG TAB PO SCH (10:38)
[2022-08-04] MEDS: DOCUSATE SODIUM 100 MG CAP PO SCH ×2 (10:38→21:02)
[2022-08-04] MEDS: ARTIFICAL TEARS SOL 15 ML OU SCH ×3 (10:43→21:03)
[2022-08-04] MEDS: DOXYCYCLINE HYCLATE 100 MG TABLET PO SCH ×2 (10:43→21:02)
[2022-08-04] MEDS: LORATADINE 10 MG TABLET PO SCH (10:43)
[2022-08-04] MEDS: POLYETHYLENE GLYCOL 3350 17 GM POWD.PACK PO SCH (10:43)
[2022-08-04] MEDS: FERROUS SULFATE 325 MG TABLET.DR PO SCH (10:46)
[2022-08-04] MEDS: SODIUM BICARBONATE 650 MG TAB PO SCH ×3 (10:46→21:02)
[2022-08-04] MEDS: HEPARIN 5,000 UNIT VIAL SQ SCH ×2 (11:44→21:01)
[2022-08-04 12:00] VITALS: BP 132/58
[2022-08-04 16:00] VITALS: BP 115/49
[2022-08-04] MEDS: MUPIROCIN OINTMENT 22 GM TUBE TP SCH (17:30)
[2022-08-04] MEDS: CALCIUM AC 667MG CAP PO SCH (19:23)
[2022-08-04 20:00] VITALS: BP 141/60
[2022-08-04] MEDS: IRON SUCROSE COMPLEX 300 MG in 0.9% NACL 250ML 250 ML IV SCH (20:57)
[2022-08-04] MEDS: LATANOPROST 2.5 ML DROPS OU SCH (21:04)
[2022-08-05] VITALS: BP 120/68
[2022-08-05 03:51] VITALS: BP 126/60
[2022-08-05 04:39] LABS: HEMATOCRIT 26.4 % (36-48); MEAN CORPUSCULAR HGB CONC 29.2 g/dL (32.0-36.0); MEAN CORPUSCULAR VOLUME 89.2 fL (79-99); PLATELET COUNT (AUTO) 178 K/uL (130-400); RED BLOOD CELL COUNT(AUTO) 2.96 MIL/uL (4.00-5.50); RED CELL DISTRIBUTION WIDTH 17.5 % (11.0-15.5); WHITE BLOOD COUNT (AUTO) 6.2 K/uL (4.8-10.8)
[2022-08-05 05:32] LABS: CREATININE 5.3 mg/dL (0.5-1.5); MAGNESIUM 2.1 mg/dL (1.80-2.40); POTASSIUM 5.1 mmol/L (3.5-5.1)
[2022-08-05] MEDS: INSULIN HUMULIN R 100 UNIT/ML 3ML SQ SCH ×4 (06:06→20:57)
[2022-08-05] MEDS: IPRATROPIUM 0.5 MG/2.5 ML INH IH SCH ×4 (07:01→23:22)
[2022-08-05] MEDS: ALBUTEROL 0.083% 2.5 MG/3 ML INH IH SCH ×4 (07:01→23:22)
[2022-08-05 08:00] VITALS: BP 115/51
[2022-08-05] MEDS: HYDRALAZINE 25MG TABLET PO SCH ×3 (09:00→21:00)
[2022-08-05] MEDS: POLYETHYLENE GLYCOL 3350 17 GM POWD.PACK PO SCH (09:58)
[2022-08-05] MEDS: FAMOTIDINE 20MG TAB PO SCH (09:59)
[2022-08-05] MEDS: LORATADINE 10 MG TABLET PO SCH (09:59)
[2022-08-05] MEDS: DOCUSATE SODIUM 100 MG CAP PO SCH ×2 (09:59→20:56)
[2022-08-05] MEDS: SODIUM BICARBONATE 650 MG TAB PO SCH ×3 (09:59→20:56)
[2022-08-05] MEDS: LABETALOL HCL 100 MG TABLET PO SCH ×3 (09:59→21:00)
[2022-08-05] MEDS: DOXYCYCLINE HYCLATE 100 MG TABLET PO SCH ×2 (10:00→20:55)
[2022-08-05] MEDS: ARTIFICAL TEARS SOL 15 ML OU SCH ×3 (10:01→21:00)
[2022-08-05] MEDS: AMLODIPINE 5 MG TAB PO SCH (10:02)
[2022-08-05] MEDS: HEPARIN 5,000 UNIT VIAL SQ SCH ×2 (10:03→20:57)
[2022-08-05] MEDS: EPOETIN ALFA-EPBX (NON-ESRD) 10,000 UNIT/ML VIAL SQ SCH (10:06)
[2022-08-05] MEDS: CALCIUM AC 667MG CAP PO SCH ×3 (10:06→16:46)
[2022-08-05] MEDS: FERROUS SULFATE 325 MG TABLET.DR PO SCH (10:07)
[2022-08-05] MEDS: IRON SUCROSE COMPLEX 300 MG in 0.9% NACL 250ML 250 ML IV SCH (11:20)
[2022-08-05] MEDS: FUROSEMIDE 40MG VIAL IV SCH (11:20)
[2022-08-05] MEDS: ERGOCALCIFEROL (VITAMIN D2) 50,000 UNIT CAPSULE PO SCH (11:20)
[2022-08-05 11:56] VITALS: BP 116/52
[2022-08-05 16:00] VITALS: BP 104/62
[2022-08-05] MEDS: MUPIROCIN OINTMENT 22 GM TUBE TP SCH (16:52)
[2022-08-05 20:00] VITALS: BP 117/60
[2022-08-05] MEDS: LATANOPROST 2.5 ML DROPS OU SCH (21:00)
[2022-08-05] MEDS: ACETAMINOPHEN 325 MG TAB PO PRN (22:57)
[2022-08-05] MEDS ORDERED: DIPHENHYDRAMINE HCL 25 MG CAPSULE PO ONE (23:00)
[2022-08-06] VITALS (7 sets, daily range): BP systolic 105–137; BP diastolic 48–69
[2022-08-06 05:02] LABS: ALBUMIN 1.9 g/dL (3.5-5.0); CREATININE 5.3 mg/dL (0.5-1.5); POTASSIUM 5.1 mmol/L (3.5-5.1)
[2022-08-06 05:10] LABS: ABG BASE EXCESS -6.7 mmol/L (-2.0-3.0); ABG HCO3 21.1 mmol/L (21.0-28.0); ABG OXYGEN SATURATION 97.1 % (95.0-99.0); ABG PCO2 51 mmHg (32-45)
[2022-08-06] MEDS: ALBUTEROL 0.083% 2.5 MG/3 ML INH IH SCH ×4 (06:12→23:02)
[2022-08-06] MEDS: IPRATROPIUM 0.5 MG/2.5 ML INH IH SCH ×4 (06:12→23:02)
[2022-08-06] MEDS: INSULIN HUMULIN R 100 UNIT/ML 3ML SQ SCH ×4 (06:32→21:00)
[2022-08-06] MEDS: IRON SUCROSE COMPLEX 300 MG in 0.9% NACL 250ML 250 ML IV SCH (09:57)
[2022-08-06] MEDS: HYDRALAZINE 25MG TABLET PO SCH ×2 (09:57→20:58)
[2022-08-06] MEDS: DOCUSATE SODIUM 100 MG CAP PO SCH ×2 (09:57→20:57)
[2022-08-06] MEDS: POLYETHYLENE GLYCOL 3350 17 GM POWD.PACK PO SCH (09:57)
[2022-08-06] MEDS: DOXYCYCLINE HYCLATE 100 MG TABLET PO SCH ×2 (09:57→20:57)
[2022-08-06] MEDS: FAMOTIDINE 20MG TAB PO SCH (09:58)
[2022-08-06] MEDS: LABETALOL HCL 100 MG TABLET PO SCH ×2 (09:58→21:08)
[2022-08-06] MEDS: AMLODIPINE 5 MG TAB PO SCH (09:58)
[2022-08-06] MEDS: LORATADINE 10 MG TABLET PO SCH (09:58)
[2022-08-06] MEDS: SODIUM BICARBONATE 650 MG TAB PO SCH ×3 (09:58→20:57)
[2022-08-06] MEDS: HEPARIN 5,000 UNIT VIAL SQ SCH ×2 (09:59→21:00)
[2022-08-06] MEDS: FERROUS SULFATE 325 MG TABLET.DR PO SCH (10:01)
[2022-08-06] MEDS: CALCIUM AC 667MG CAP PO SCH ×3 (10:01→17:00)
[2022-08-06] MEDS: ARTIFICAL TEARS SOL 15 ML OU SCH ×3 (10:04→21:00)
[2022-08-06] MEDS: MUPIROCIN OINTMENT 22 GM TUBE TP SCH (18:27)
[2022-08-06] MEDS: LATANOPROST 2.5 ML DROPS OU SCH (21:00)
[2022-08-07 03:38] VITALS: BP 118/59
[2022-08-07] MEDS: IPRATROPIUM 0.5 MG/2.5 ML INH IH SCH ×4 (06:16→23:55)
[2022-08-07] MEDS: ALBUTEROL 0.083% 2.5 MG/3 ML INH IH SCH ×4 (06:16→23:55)
[2022-08-07] MEDS: INSULIN HUMULIN R 100 UNIT/ML 3ML SQ SCH ×4 (07:30→21:00)
[2022-08-07 07:54] LABS: ALBUMIN 1.9 g/dL (3.5-5.0); CREATININE 5.3 mg/dL (0.5-1.5); PHOSPHORUS 7.1 mg/dL (2.5-4.9); POTASSIUM 4.8 mmol/L (3.5-5.1)
[2022-08-07 07:58] VITALS: BP 105/45
[2022-08-07] MEDS: CALCIUM AC 667MG CAP PO SCH ×2 (08:00→17:00)
[2022-08-07] MEDS: FERROUS SULFATE 325 MG TABLET.DR PO SCH (08:00)
[2022-08-07] MEDS: LABETALOL HCL 100 MG TABLET PO SCH ×2 (09:00→20:55)
[2022-08-07] MEDS: HYDRALAZINE 25MG TABLET PO SCH ×2 (09:00→20:55)
[2022-08-07] MEDS: AMLODIPINE 5 MG TAB PO SCH (09:00)
[2022-08-07] MEDS: LORATADINE 10 MG TABLET PO SCH (10:11)
[2022-08-07] MEDS: POLYETHYLENE GLYCOL 3350 17 GM POWD.PACK PO SCH (10:11)
[2022-08-07] MEDS: FAMOTIDINE 20MG TAB PO SCH (10:11)
[2022-08-07] MEDS: IRON SUCROSE COMPLEX 300 MG in 0.9% NACL 250ML 250 ML IV SCH (10:11)
[2022-08-07] MEDS: DOCUSATE SODIUM 100 MG CAP PO SCH ×2 (10:12→20:58)
[2022-08-07] MEDS: DOXYCYCLINE HYCLATE 100 MG TABLET PO SCH ×2 (10:12→20:54)
[2022-08-07] MEDS: HEPARIN 5,000 UNIT VIAL SQ SCH ×2 (10:13→20:57)
[2022-08-07] MEDS: ARTIFICAL TEARS SOL 15 ML OU SCH ×3 (10:47→21:05)
[2022-08-07] MEDS: SODIUM BICARBONATE 650 MG TAB PO SCH ×2 (10:53→20:56)
[2022-08-07 11:51] VITALS: BP 105/44
[2022-08-07 15:50] VITALS: BP 121/52
[2022-08-07] MEDS: MUPIROCIN OINTMENT 22 GM TUBE TP SCH (17:30)
[2022-08-07 20:30] VITALS: BP 122/53
[2022-08-07] MEDS: LATANOPROST 2.5 ML DROPS OU SCH (21:05)
[2022-08-07 23:55] LABS: HEMATOCRIT 25.5 % (36-48)
[2022-08-08] VITALS (20 sets, daily range): BP systolic 109–170; BP diastolic 44–77
[2022-08-08 00:07] LABS: CREATININE 4.7 mg/dL (0.5-1.5)
[2022-08-08 00:39] LABS: % IRON SATURATION 61.7 % (22-44)
[2022-08-08 05:57] LABS: HEMATOCRIT 25.4 % (36-48); MEAN CORPUSCULAR HEMOGLOBIN 26.8 pg (27.0-33.0); MEAN CORPUSCULAR HGB CONC 29.5 g/dL (32.0-36.0); MEAN CORPUSCULAR VOLUME 90.7 fL (79-99); RED BLOOD CELL COUNT(AUTO) 2.8 MIL/uL (4.00-5.50); RED CELL DISTRIBUTION WIDTH 18.4 % (11.0-15.5); WHITE BLOOD COUNT (AUTO) 6.9 K/uL (4.8-10.8)
[2022-08-08 06:06] LABS: POTASSIUM 4.8 mmol/L (3.5-5.1)
[2022-08-08] MEDS: IPRATROPIUM 0.5 MG/2.5 ML INH IH SCH ×4 (06:33→23:21)
[2022-08-08] MEDS: ALBUTEROL 0.083% 2.5 MG/3 ML INH IH SCH ×4 (06:33→23:22)
[2022-08-08] MEDS: INSULIN HUMULIN R 100 UNIT/ML 3ML SQ SCH ×4 (07:30→21:00)
[2022-08-08] MEDS: LABETALOL HCL 100 MG TABLET PO SCH ×2 (09:00→21:21)
[2022-08-08] MEDS: AMLODIPINE 5 MG TAB PO SCH (09:00)
[2022-08-08] MEDS: CALCIUM AC 667MG CAP PO SCH ×4 (09:00→17:53)
[2022-08-08] MEDS: HYDRALAZINE 25MG TABLET PO SCH ×2 (09:00→21:20)
[2022-08-08] MEDS ORDERED: LIDOCAINE HCL 1% MDV 50ML VIAL ONE (13:23)
[2022-08-08] MEDS ORDERED: HEPARIN 1,000 UNIT VIAL ONE (13:23)
[2022-08-08] MEDS ORDERED: FENTANYL CITRATE PF 50 MCG/1 ML 2ML VIAL ONE (13:53)
[2022-08-08] MEDS: SODIUM BICARBONATE 650 MG TAB PO SCH ×3 (14:00→21:21)
[2022-08-08] MEDS: ARTIFICAL TEARS SOL 15 ML OU SCH ×3 (14:00→21:21)
[2022-08-08 14:32] LABS: HEPATITIS B SURFACE ANTIGEN Non-Reactive (Nonreactive)
[2022-08-08] MEDS ORDERED: HEPARIN 5,000 UNIT VIAL IV SCH (16:14)
[2022-08-08] MEDS: ACETAMINOPHEN 325 MG TAB PO PRN (16:29)
[2022-08-08] MEDS: MUPIROCIN OINTMENT 22 GM TUBE TP SCH (17:30)
[2022-08-08] MEDS: IRON SUCROSE COMPLEX 300 MG in 0.9% NACL 250ML 250 ML IV SCH (17:52)
[2022-08-08] MEDS: POLYETHYLENE GLYCOL 3350 17 GM POWD.PACK PO SCH (17:52)
[2022-08-08] MEDS: FAMOTIDINE 20MG TAB PO SCH (17:53)
[2022-08-08] MEDS: EPOETIN ALFA-EPBX (NON-ESRD) 10,000 UNIT/ML VIAL SQ SCH (17:53)
[2022-08-08] MEDS: DOCUSATE SODIUM 100 MG CAP PO SCH ×2 (17:53→21:00)
[2022-08-08] MEDS: DOXYCYCLINE HYCLATE 100 MG TABLET PO SCH ×2 (17:53→21:20)
[2022-08-08] MEDS: FERROUS SULFATE 325 MG TABLET.DR PO SCH (17:53)
[2022-08-08] MEDS: ERGOCALCIFEROL (VITAMIN D2) 50,000 UNIT CAPSULE PO SCH (17:53)
[2022-08-08] MEDS: LORATADINE 10 MG TABLET PO SCH (17:54)
[2022-08-08] MEDS: HEPARIN 5,000 UNIT VIAL SQ SCH ×2 (17:55→21:22)
[2022-08-08] MEDS: LATANOPROST 2.5 ML DROPS OU SCH (21:21)
[2022-08-09] VITALS (17 sets, daily range): BP systolic 110–146; BP diastolic 49–69
[2022-08-09 05:08] LABS: HEMATOCRIT 26.1 % (36-48); MEAN CORPUSCULAR HEMOGLOBIN 26.7 pg (27.0-33.0); MEAN CORPUSCULAR HGB CONC 29.5 g/dL (32.0-36.0); MEAN CORPUSCULAR VOLUME 90.6 fL (79-99); RED BLOOD CELL COUNT(AUTO) 2.88 MIL/uL (4.00-5.50); RED CELL DISTRIBUTION WIDTH 18.7 % (11.0-15.5); WHITE BLOOD COUNT (AUTO) 6.4 K/uL (4.8-10.8)
[2022-08-09 05:25] LABS: CREATININE 3.9 mg/dL (0.5-1.5); POTASSIUM 4.6 mmol/L (3.5-5.1)
[2022-08-09] MEDS: INSULIN HUMULIN R 100 UNIT/ML 3ML SQ SCH ×4 (05:33→20:42)
[2022-08-09] MEDS: IPRATROPIUM 0.5 MG/2.5 ML INH IH SCH ×4 (06:35→23:35)
[2022-08-09] MEDS: ALBUTEROL 0.083% 2.5 MG/3 ML INH IH SCH ×4 (06:35→23:35)
[2022-08-09] MEDS: FERROUS SULFATE 325 MG TABLET.DR PO SCH (08:00)
[2022-08-09] MEDS: DOCUSATE SODIUM 100 MG CAP PO SCH ×2 (10:09→18:13)
[2022-08-09] MEDS: DOXYCYCLINE HYCLATE 100 MG TABLET PO SCH ×2 (10:09→20:21)
[2022-08-09] MEDS: POLYETHYLENE GLYCOL 3350 17 GM POWD.PACK PO SCH (10:09)
[2022-08-09] MEDS: FAMOTIDINE 20MG TAB PO SCH (10:09)
[2022-08-09] MEDS: AMLODIPINE 5 MG TAB PO SCH (10:10)
[2022-08-09] MEDS: SODIUM BICARBONATE 650 MG TAB PO SCH ×3 (10:10→18:13)
[2022-08-09] MEDS: LORATADINE 10 MG TABLET PO SCH (10:10)
[2022-08-09] MEDS: HYDRALAZINE 25MG TABLET PO SCH ×2 (10:10→20:21)
[2022-08-09] MEDS: CALCIUM AC 667MG CAP PO SCH ×3 (10:10→15:03)
[2022-08-09] MEDS: LABETALOL HCL 100 MG TABLET PO SCH ×2 (10:10→20:21)
[2022-08-09] MEDS: ARTIFICAL TEARS SOL 15 ML OU SCH ×3 (10:11→20:21)
[2022-08-09] MEDS: IRON SUCROSE COMPLEX 300 MG in 0.9% NACL 250ML 250 ML IV SCH (10:12)
[2022-08-09] MEDS: HEPARIN 5,000 UNIT VIAL SQ SCH ×2 (10:13→20:42)
[2022-08-09] MEDS: MUPIROCIN OINTMENT 22 GM TUBE TP SCH (16:15)
[2022-08-09] MEDS: HEPARIN 5,000 UNIT VIAL IRRIG PRN (17:59)
[2022-08-09] MEDS: LATANOPROST 2.5 ML DROPS OU SCH (20:22)
[2022-08-10] VITALS (21 sets, daily range): BP systolic 92–177; BP diastolic 49–73
[2022-08-10] MEDS: INSULIN HUMULIN R 100 UNIT/ML 3ML SQ SCH ×4 (05:35→21:00)
[2022-08-10] MEDS: ALBUTEROL 0.083% 2.5 MG/3 ML INH IH SCH ×3 (06:22→18:00)
[2022-08-10] MEDS: IPRATROPIUM 0.5 MG/2.5 ML INH IH SCH ×3 (06:22→18:00)
[2022-08-10] MEDS: FERROUS SULFATE 325 MG TABLET.DR PO SCH (08:00)
[2022-08-10] MEDS: CALCIUM AC 667MG CAP PO SCH ×3 (08:00→17:16)
[2022-08-10] MEDS: POLYETHYLENE GLYCOL 3350 17 GM POWD.PACK PO SCH (09:00)
[2022-08-10] MEDS: DOXYCYCLINE HYCLATE 100 MG TABLET PO SCH (09:00)
[2022-08-10] MEDS: FAMOTIDINE 20MG TAB PO SCH (09:00)
[2022-08-10] MEDS: ARTIFICAL TEARS SOL 15 ML OU SCH ×3 (09:00→21:43)
[2022-08-10] MEDS: HEPARIN 5,000 UNIT VIAL SQ SCH ×2 (09:00→21:39)
[2022-08-10] MEDS: DOCUSATE SODIUM 100 MG CAP PO SCH ×2 (09:00→21:40)
[2022-08-10] MEDS: HYDRALAZINE 25MG TABLET PO SCH ×2 (09:00→21:40)
[2022-08-10] MEDS: LORATADINE 10 MG TABLET PO SCH (09:00)
[2022-08-10] MEDS: LABETALOL HCL 100 MG TABLET PO SCH ×2 (09:00→21:41)
[2022-08-10] MEDS: AMLODIPINE 5 MG TAB PO SCH (09:00)
[2022-08-10] MEDS: MUPIROCIN OINTMENT 22 GM TUBE TP SCH (17:18)
[2022-08-10] MEDS: LATANOPROST 2.5 ML DROPS OU SCH (21:43)
[2022-08-11 03:47] VITALS: BP 129/67
[2022-08-11 04:42] LABS: HEMATOCRIT 28.9 % (36-48); MEAN CORPUSCULAR HEMOGLOBIN 27.3 pg (27.0-33.0); MEAN CORPUSCULAR HGB CONC 30.1 g/dL (32.0-36.0); MEAN CORPUSCULAR VOLUME 90.6 fL (79-99); RED BLOOD CELL COUNT(AUTO) 3.19 MIL/uL (4.00-5.50); RED CELL DISTRIBUTION WIDTH 19.6 % (11.0-15.5); WHITE BLOOD COUNT (AUTO) 5.6 K/uL (4.8-10.8)
[2022-08-11 04:55] LABS: CREATININE 2.8 mg/dL (0.5-1.5)
[2022-08-11] MEDS: INSULIN HUMULIN R 100 UNIT/ML 3ML SQ SCH ×4 (06:34→21:00)
[2022-08-11 07:50] VITALS: BP 127/68
[2022-08-11] MEDS: ALBUTEROL 0.083% 2.5 MG/3 ML INH IH SCH ×4 (07:55→23:20)
[2022-08-11] MEDS: IPRATROPIUM 0.5 MG/2.5 ML INH IH SCH ×4 (07:55→23:20)
[2022-08-11] MEDS: FERROUS SULFATE 325 MG TABLET.DR PO SCH (09:11)
[2022-08-11] MEDS: HYDRALAZINE 25MG TABLET PO SCH ×2 (09:11→21:52)
[2022-08-11] MEDS: FAMOTIDINE 20MG TAB PO SCH (09:11)
[2022-08-11] MEDS: LORATADINE 10 MG TABLET PO SCH (09:11)
[2022-08-11] MEDS: LABETALOL HCL 100 MG TABLET PO SCH ×2 (09:11→21:53)
[2022-08-11] MEDS: CALCIUM AC 667MG CAP PO SCH ×3 (09:11→16:49)
[2022-08-11] MEDS: AMLODIPINE 5 MG TAB PO SCH (09:11)
[2022-08-11] MEDS: ARTIFICAL TEARS SOL 15 ML OU SCH ×3 (09:12→21:58)
[2022-08-11] MEDS: DOCUSATE SODIUM 100 MG CAP PO SCH ×2 (09:12→21:52)
[2022-08-11] MEDS: POLYETHYLENE GLYCOL 3350 17 GM POWD.PACK PO SCH (09:12)
[2022-08-11] MEDS: HEPARIN 5,000 UNIT VIAL SQ SCH ×2 (09:20→21:54)
[2022-08-11 11:50] VITALS: BP 131/67
[2022-08-11 15:50] VITALS: BP 147/50
[2022-08-11 20:00] VITALS: BP 152/61
[2022-08-11] MEDS: LATANOPROST 2.5 ML DROPS OU SCH (21:58)
[2022-08-12] VITALS (20 sets, daily range): BP systolic 104–151; BP diastolic 47–77
[2022-08-12 05:25] LABS: MEAN CORPUSCULAR HEMOGLOBIN 27.1 pg (27.0-33.0); MEAN CORPUSCULAR VOLUME 90.3 fL (79-99); PLATELET COUNT (AUTO) 121 K/uL (130-400); RED BLOOD CELL COUNT(AUTO) 2.99 MIL/uL (4.00-5.50); RED CELL DISTRIBUTION WIDTH 20.1 % (11.0-15.5); WHITE BLOOD COUNT (AUTO) 6.1 K/uL (4.8-10.8)
[2022-08-12] MEDS: IPRATROPIUM 0.5 MG/2.5 ML INH IH SCH ×4 (06:31→23:21)
[2022-08-12] MEDS: ALBUTEROL 0.083% 2.5 MG/3 ML INH IH SCH ×4 (06:31→23:22)
[2022-08-12] MEDS: INSULIN HUMULIN R 100 UNIT/ML 3ML SQ SCH ×4 (06:43→21:00)
[2022-08-12] MEDS: DOCUSATE SODIUM 100 MG CAP PO SCH ×3 (08:55→22:08)
[2022-08-12] MEDS: LORATADINE 10 MG TABLET PO SCH (08:55)
[2022-08-12] MEDS: FERROUS SULFATE 325 MG TABLET.DR PO SCH (08:56)
[2022-08-12] MEDS: CALCIUM AC 667MG CAP PO SCH ×3 (08:56→18:35)
[2022-08-12] MEDS: POLYETHYLENE GLYCOL 3350 17 GM POWD.PACK PO SCH (08:58)
[2022-08-12] MEDS: FAMOTIDINE 20MG TAB PO SCH (08:59)
[2022-08-12] MEDS: LABETALOL HCL 100 MG TABLET PO SCH ×2 (09:00→22:09)
[2022-08-12] MEDS: ARTIFICAL TEARS SOL 15 ML OU SCH ×3 (09:00→22:10)
[2022-08-12] MEDS: AMLODIPINE 5 MG TAB PO SCH (09:00)
[2022-08-12] MEDS: HYDRALAZINE 25MG TABLET PO SCH (09:00)
[2022-08-12] MEDS: HEPARIN 5,000 UNIT VIAL SQ SCH ×2 (09:05→22:07)
[2022-08-12] MEDS: HEPARIN 5,000 UNIT VIAL IRRIG PRN (12:38)
[2022-08-12] MEDS: EPOETIN ALFA-EPBX (NON-ESRD) 10,000 UNIT/ML VIAL SQ SCH (13:36)
[2022-08-12] MEDS: ERGOCALCIFEROL (VITAMIN D2) 50,000 UNIT CAPSULE PO SCH (13:36)
[2022-08-12] MEDS: MUPIROCIN OINTMENT 22 GM TUBE TP SCH (18:40)
[2022-08-12] MEDS: LATANOPROST 2.5 ML DROPS OU SCH (22:11)
[2022-08-13] VITALS (7 sets, daily range): BP systolic 131–163; BP diastolic 56–74
[2022-08-13] MEDS: HYDRALAZINE 25MG TABLET PO SCH ×3 (00:12→20:47)
[2022-08-13 05:30] LABS: HEMATOCRIT 28.1 % (36-48); MEAN CORPUSCULAR HEMOGLOBIN 27.4 pg (27.0-33.0); MEAN CORPUSCULAR HGB CONC 29.9 g/dL (32.0-36.0); MEAN CORPUSCULAR VOLUME 91.5 fL (79-99); RED BLOOD CELL COUNT(AUTO) 3.07 MIL/uL (4.00-5.50); RED CELL DISTRIBUTION WIDTH 20.1 % (11.0-15.5); WHITE BLOOD COUNT (AUTO) 7.2 K/uL (4.8-10.8)
[2022-08-13 05:38] LABS: CREATININE 2.8 mg/dL (0.5-1.5); POTASSIUM 3.9 mmol/L (3.5-5.1)
[2022-08-13] MEDS: IPRATROPIUM 0.5 MG/2.5 ML INH IH SCH ×4 (06:12→23:04)
[2022-08-13] MEDS: ALBUTEROL 0.083% 2.5 MG/3 ML INH IH SCH ×4 (06:12→23:04)
[2022-08-13] MEDS: INSULIN HUMULIN R 100 UNIT/ML 3ML SQ SCH ×4 (07:09→21:00)
[2022-08-13] MEDS: CALCIUM AC 667MG CAP PO SCH ×3 (08:40→17:35)
[2022-08-13] MEDS: DOCUSATE SODIUM 100 MG CAP PO SCH ×2 (08:40→20:48)
[2022-08-13] MEDS: FERROUS SULFATE 325 MG TABLET.DR PO SCH (08:40)
[2022-08-13] MEDS: FAMOTIDINE 20MG TAB PO SCH (08:40)
[2022-08-13] MEDS: AMLODIPINE 5 MG TAB PO SCH (08:40)
[2022-08-13] MEDS: POLYETHYLENE GLYCOL 3350 17 GM POWD.PACK PO SCH (08:43)
[2022-08-13] MEDS: LORATADINE 10 MG TABLET PO SCH (08:43)
[2022-08-13] MEDS: LABETALOL HCL 100 MG TABLET PO SCH ×2 (08:43→20:47)
[2022-08-13] MEDS: HEPARIN 5,000 UNIT VIAL SQ SCH ×2 (08:51→20:50)
[2022-08-13] MEDS: ARTIFICAL TEARS SOL 15 ML OU SCH ×3 (08:51→20:51)
[2022-08-13] MEDS: MUPIROCIN OINTMENT 22 GM TUBE TP SCH (17:36)
[2022-08-13] MEDS: LATANOPROST 2.5 ML DROPS OU SCH (20:51)
[2022-08-14] VITALS: BP 130/51
[2022-08-14 04:00] VITALS: BP 160/67
[2022-08-14] MEDS: ALBUTEROL 0.083% 2.5 MG/3 ML INH IH SCH ×4 (06:06→23:23)
[2022-08-14] MEDS: IPRATROPIUM 0.5 MG/2.5 ML INH IH SCH ×4 (06:06→23:23)
[2022-08-14] MEDS: INSULIN HUMULIN R 100 UNIT/ML 3ML SQ SCH ×4 (06:35→21:00)
[2022-08-14 08:00] VITALS: BP 134/51
[2022-08-14] MEDS: ARTIFICAL TEARS SOL 15 ML OU SCH ×3 (09:00→20:58)
[2022-08-14] MEDS: CALCIUM AC 667MG CAP PO SCH ×3 (09:01→16:58)
[2022-08-14] MEDS: HYDRALAZINE 25MG TABLET PO SCH ×2 (09:01→20:58)
[2022-08-14] MEDS: AMLODIPINE 5 MG TAB PO SCH (09:02)
[2022-08-14] MEDS: FERROUS SULFATE 325 MG TABLET.DR PO SCH (09:02)
[2022-08-14] MEDS: LABETALOL HCL 100 MG TABLET PO SCH ×2 (09:02→20:57)
[2022-08-14] MEDS: POLYETHYLENE GLYCOL 3350 17 GM POWD.PACK PO SCH (09:02)
[2022-08-14] MEDS: FAMOTIDINE 20MG TAB PO SCH (09:02)
[2022-08-14] MEDS: DOCUSATE SODIUM 100 MG CAP PO SCH ×2 (09:02→20:57)
[2022-08-14] MEDS: LORATADINE 10 MG TABLET PO SCH (09:02)
[2022-08-14] MEDS: HEPARIN 5,000 UNIT VIAL SQ SCH ×2 (09:19→21:05)
[2022-08-14 12:00] VITALS: BP 115/55
[2022-08-14 16:00] VITALS: BP 150/47
[2022-08-14] MEDS: MUPIROCIN OINTMENT 22 GM TUBE TP SCH (16:59)
[2022-08-14] MEDS: LATANOPROST 2.5 ML DROPS OU SCH (20:58)
[2022-08-14 21:08] VITALS: BP 157/64
[2022-08-14 21:28] LABS: APPEARANCE,URINE CLOUDY (CLEAR); BILIRUBIN,URINE NEGATIVE (NEGATIVE); COLOR,URINE LIGHT-YELLOW (YELLOW); GLUCOSE, URINE (UA) 200 mg/dL (NEGATIVE); KETONES,URINE NEGATIVE (NEGATIVE); LEUKOCYTE ESTERASE ,URINE 500 Leu/uL (NEGATIVE); NITRATE,URINE 1+ (NEGATIVE); OCCULT BLOOD,URINE NEGATIVE (NEGATIVE); PH,URINE 8.5 (5.0-8.0); PROTEIN,URINE 600 mg/dL (NEGATIVE); UROBILINOGEN,URINE 0.2 mg/dL (0.2-1.0)
[2022-08-14 21:36] LABS: BACTERIA,URINE FEW /HPF (None Seen); SQUAMOUS EPITHELIAL CELL,UR RARE /HPF (0-2)
[2022-08-15] VITALS (21 sets, daily range): BP systolic 118–166; BP diastolic 54–78
[2022-08-15] MEDS: INSULIN HUMULIN R 100 UNIT/ML 3ML SQ SCH ×4 (06:03→21:00)
[2022-08-15] MEDS: ALBUTEROL 0.083% 2.5 MG/3 ML INH IH SCH ×4 (06:55→23:56)
[2022-08-15] MEDS: IPRATROPIUM 0.5 MG/2.5 ML INH IH SCH ×4 (06:55→23:56)
[2022-08-15] MEDS: POLYETHYLENE GLYCOL 3350 17 GM POWD.PACK PO SCH (09:07)
[2022-08-15] MEDS: EPOETIN ALFA-EPBX (NON-ESRD) 10,000 UNIT/ML VIAL SQ SCH (09:07)
[2022-08-15] MEDS: LORATADINE 10 MG TABLET PO SCH (09:07)
[2022-08-15] MEDS: DOCUSATE SODIUM 100 MG CAP PO SCH ×2 (09:08→21:39)
[2022-08-15] MEDS: AMLODIPINE 5 MG TAB PO SCH (09:08)
[2022-08-15] MEDS: FAMOTIDINE 20MG TAB PO SCH (09:08)
[2022-08-15] MEDS: HYDRALAZINE 25MG TABLET PO SCH ×2 (09:08→21:47)
[2022-08-15] MEDS: LABETALOL HCL 100 MG TABLET PO SCH ×2 (09:08→21:39)
[2022-08-15] MEDS: HEPARIN 5,000 UNIT VIAL SQ SCH ×2 (09:11→21:41)
[2022-08-15] MEDS: CALCIUM AC 667MG CAP PO SCH ×3 (09:13→17:16)
[2022-08-15] MEDS: FERROUS SULFATE 325 MG TABLET.DR PO SCH (09:13)
[2022-08-15] MEDS: ARTIFICAL TEARS SOL 15 ML OU SCH ×3 (09:19→21:45)
[2022-08-15 13:10] LABS: ALBUMIN 2.2 g/dL (3.5-5.0); CREATININE 3.1 mg/dL (0.5-1.5); PHOSPHORUS 3.8 mg/dL (2.5-4.9); POTASSIUM 4.1 mmol/L (3.5-5.1)
[2022-08-15] MEDS: DIPHENHYDRAMINE 2% CREAM 30 GM TP SCH ×2 (14:15→21:44)
[2022-08-15] MEDS: MUPIROCIN OINTMENT 22 GM TUBE TP SCH (17:21)
[2022-08-15] MEDS ORDERED: CEFTRIAXONE 2GM VIAL IVP SCH (20:00)
[2022-08-15] MEDS: LATANOPROST 2.5 ML DROPS OU SCH (21:44)
[2022-08-15] MEDS: HEPARIN 5,000 UNIT VIAL IRRIG PRN (23:15)
[2022-08-16 03:24] VITALS: BP 164/65
[2022-08-16 04:57] LABS: HEMATOCRIT 30.3 % (36-48); MEAN CORPUSCULAR HEMOGLOBIN 27.3 pg (27.0-33.0); RED BLOOD CELL COUNT(AUTO) 3.33 MIL/uL (4.00-5.50); RED CELL DISTRIBUTION WIDTH 20.2 % (11.0-15.5); WHITE BLOOD COUNT (AUTO) 6.2 K/uL (4.8-10.8)
[2022-08-16 05:07] LABS: CREATININE 2.6 mg/dL (0.5-1.5); POTASSIUM 3.6 mmol/L (3.5-5.1)
[2022-08-16] MEDS: INSULIN HUMULIN R 100 UNIT/ML 3ML SQ SCH ×4 (05:24→21:00)
[2022-08-16] MEDS: ALBUTEROL 0.083% 2.5 MG/3 ML INH IH SCH ×4 (06:22→23:17)
[2022-08-16] MEDS: IPRATROPIUM 0.5 MG/2.5 ML INH IH SCH ×4 (06:22→23:17)
[2022-08-16 07:05] VITALS: BP 143/64
[2022-08-16] MEDS: POLYETHYLENE GLYCOL 3350 17 GM POWD.PACK PO SCH (09:51)
[2022-08-16] MEDS: FAMOTIDINE 20MG TAB PO SCH (09:51)
[2022-08-16] MEDS: LORATADINE 10 MG TABLET PO SCH (09:52)
[2022-08-16] MEDS: DOCUSATE SODIUM 100 MG CAP PO SCH ×2 (09:52→21:24)
[2022-08-16] MEDS: AMLODIPINE 5 MG TAB PO SCH (09:52)
[2022-08-16] MEDS: HYDRALAZINE 25MG TABLET PO SCH ×2 (09:52→21:24)
[2022-08-16] MEDS: LABETALOL HCL 100 MG TABLET PO SCH ×2 (09:52→21:24)
[2022-08-16] MEDS: HEPARIN 5,000 UNIT VIAL SQ SCH ×2 (09:53→21:25)
[2022-08-16] MEDS: CALCIUM AC 667MG CAP PO SCH ×3 (09:55→17:06)
[2022-08-16] MEDS: FERROUS SULFATE 325 MG TABLET.DR PO SCH (09:55)
[2022-08-16] MEDS ORDERED: ZOSYN 3.375GM +NS 50ML IVPB SCH (10:00)
[2022-08-16] MEDS ORDERED: 0.9%NACL 50ML IV SCH (10:00)
[2022-08-16] MEDS: ARTIFICAL TEARS SOL 15 ML OU SCH ×3 (10:06→21:35)
[2022-08-16] MEDS: DIPHENHYDRAMINE 2% CREAM 30 GM TP SCH ×3 (10:07→21:26)
[2022-08-16 11:15] VITALS: BP 156/76
[2022-08-16] MEDS ORDERED: ZOSYN 3.375GM+NS 50ML 50 ML IVPB SCH (13:00)
[2022-08-16 16:00] VITALS: BP 136/54
[2022-08-16] MEDS: MUPIROCIN OINTMENT 22 GM TUBE TP SCH (18:23)
[2022-08-16 19:30] VITALS: BP 177/67
[2022-08-16] MEDS: ZOSYN 3.375GM+NS 50ML 50 ML IVPB SCH (21:23)
[2022-08-16] MEDS: LATANOPROST 2.5 ML DROPS OU SCH (21:35)
[2022-08-16 23:45] VITALS: BP 168/72
[2022-08-17] VITALS (20 sets, daily range): BP systolic 130–188; BP diastolic 48–82
[2022-08-17 06:10] LABS: HEMATOCRIT 30.5 % (36-48); MEAN CORPUSCULAR HEMOGLOBIN 27.6 pg (27.0-33.0); MEAN CORPUSCULAR HGB CONC 29.8 g/dL (32.0-36.0); MEAN CORPUSCULAR VOLUME 92.4 fL (79-99); RED BLOOD CELL COUNT(AUTO) 3.3 MIL/uL (4.00-5.50); RED CELL DISTRIBUTION WIDTH 20.3 % (11.0-15.5); WHITE BLOOD COUNT (AUTO) 5.4 K/uL (4.8-10.8)
[2022-08-17 06:13] LABS: MAGNESIUM 1.9 mg/dL (1.80-2.40)
[2022-08-17] MEDS: ALBUTEROL 0.083% 2.5 MG/3 ML INH IH SCH ×4 (07:06→23:39)
[2022-08-17] MEDS: IPRATROPIUM 0.5 MG/2.5 ML INH IH SCH ×4 (07:06→23:40)
[2022-08-17] MEDS: INSULIN HUMULIN R 100 UNIT/ML 3ML SQ SCH ×4 (07:30→20:37)
[2022-08-17] MEDS: CALCIUM AC 667MG CAP PO SCH ×3 (08:00→18:27)
[2022-08-17] MEDS: FERROUS SULFATE 325 MG TABLET.DR PO SCH (08:00)
[2022-08-17] MEDS: HEPARIN 5,000 UNIT VIAL SQ SCH ×2 (09:00→20:10)
[2022-08-17] MEDS: DOCUSATE SODIUM 100 MG CAP PO SCH ×2 (09:00→20:08)
[2022-08-17] MEDS: HYDRALAZINE 25MG TABLET PO SCH ×2 (09:00→20:07)
[2022-08-17] MEDS: AMLODIPINE 5 MG TAB PO SCH (09:00)
[2022-08-17] MEDS: POLYETHYLENE GLYCOL 3350 17 GM POWD.PACK PO SCH (09:00)
[2022-08-17] MEDS: LORATADINE 10 MG TABLET PO SCH (09:00)
[2022-08-17] MEDS: LABETALOL HCL 100 MG TABLET PO SCH ×2 (09:00→20:08)
[2022-08-17] MEDS: ZOSYN 3.375GM+NS 50ML 50 ML IVPB SCH (09:00)
[2022-08-17] MEDS: ARTIFICAL TEARS SOL 15 ML OU SCH ×3 (09:00→20:37)
[2022-08-17] MEDS: FAMOTIDINE 20MG TAB PO SCH (09:00)
[2022-08-17] MEDS: DIPHENHYDRAMINE 2% CREAM 30 GM TP SCH ×2 (14:00→18:32)
[2022-08-17] MEDS: LATANOPROST 2.5 ML DROPS OU SCH (18:30)
[2022-08-17] MEDS: MUPIROCIN OINTMENT 22 GM TUBE TP SCH (18:32)
[2022-08-17] MEDS: HEPARIN 5,000 UNIT VIAL IRRIG PRN (19:10)
== END 2022-08-17 23:52 | DRG 137 ==
LOC: EDH 21:15 → EDHIP 21:16 → OBSVTOIN 21:16 → UNDOADMOB 07-29 02:58 → EDHIP 07-29 02:58 → 4DH 07-29 04:29 → 2CH 07-29 10:40 → 2DH 07-30 15:44 → 4BH 08-03 12:21 → 3BH 08-16 11:32
PROVIDERS: ADMIT Internal Medicine Critical Care Medicine; ATTEND Internal Medicine Critical Care Medicine
PROC: 5A09357 Assistance with Respiratory Ventilation, Less than 24 Consecutive Hours, Continuous Positive Airway Pressure (ICD-10-PCS; 2022-07-29)
PROC: 5A09357 Assistance with Respiratory Ventilation, Less than 24 Consecutive Hours, Continuous Positive Airway Pressure (ICD-10-PCS; 2022-07-30)
PROC: 5A09357 Assistance with Respiratory Ventilation, Less than 24 Consecutive Hours, Continuous Positive Airway Pressure (ICD-10-PCS; 2022-07-31)
PROC: 5A09357 Assistance with Respiratory Ventilation, Less than 24 Consecutive Hours, Continuous Positive Airway Pressure (ICD-10-PCS; 2022-08-01)
PROC: 5A09357 Assistance with Respiratory Ventilation, Less than 24 Consecutive Hours, Continuous Positive Airway Pressure (ICD-10-PCS; 2022-08-02)
PROC: 5A09357 Assistance with Respiratory Ventilation, Less than 24 Consecutive Hours, Continuous Positive Airway Pressure (ICD-10-PCS; 2022-08-03)
PROC: 5A1D70Z Performance of Urinary Filtration, Intermittent, Less than 6 Hours Per Day (ICD-10-PCS; principal; 2022-08-08)
PROC: 0JH63XZ Insertion of Tunneled Vascular Access Device into Chest Subcutaneous Tissue and Fascia, Percutaneous Approach (ICD-10-PCS; 2022-08-08)
PROC: 02H633Z Insertion of Infusion Device into Right Atrium, Percutaneous Approach (ICD-10-PCS; 2022-08-08)
PROC: B548ZZA Ultrasonography of Superior Vena Cava, Guidance (ICD-10-PCS; 2022-08-08)
PROC: 5A1D70Z Performance of Urinary Filtration, Intermittent, Less than 6 Hours Per Day (ICD-10-PCS; 2022-08-09)
PROC: 5A1D70Z Performance of Urinary Filtration, Intermittent, Less than 6 Hours Per Day (ICD-10-PCS; 2022-08-10)
PROC: 5A1D70Z Performance of Urinary Filtration, Intermittent, Less than 6 Hours Per Day (ICD-10-PCS; 2022-08-12)
PROC: 5A1D70Z Performance of Urinary Filtration, Intermittent, Less than 6 Hours Per Day (ICD-10-PCS; 2022-08-15)
PROC: 5A1D70Z Performance of Urinary Filtration, Intermittent, Less than 6 Hours Per Day (ICD-10-PCS; 2022-08-17)
DX: J69.0 Pneumonitis due to inhalation of food and vomit (principal); J96.01 Acute respiratory failure with hypoxia; G93.41 Metabolic encephalopathy; E87.4 Mixed disorder of acid-base balance; N17.9 Acute kidney failure, unspecified; E44.0 Moderate protein-calorie malnutrition; D69.6 Thrombocytopenia, unspecified; E87.20 Acidosis, unspecified; D63.1 Anemia in chronic kidney disease; Z20.822 Contact with and (suspected) exposure to COVID-19; I50.30 Unspecified diastolic (congestive) heart failure; I13.0 Hypertensive heart and chronic kidney disease with heart failure and stage 1 through stage 4 chronic kidney disease, or unspecified chronic kidney disease; E11.51 Type 2 diabetes mellitus with diabetic peripheral angiopathy without gangrene; E11.22 Type 2 diabetes mellitus with diabetic chronic kidney disease; N30.01 Acute cystitis with hematuria; E66.01 Morbid (severe) obesity due to excess calories; N18.9 Chronic kidney disease, unspecified; M79.89 Other specified soft tissue disorders; E87.70 Fluid overload, unspecified; G47.30 Sleep apnea, unspecified; Z68.43 Body mass index [BMI] 50.0-59.9, adult; I16.1 Hypertensive emergency; K21.9 Gastro-esophageal reflux disease without esophagitis; L60.2 Onychogryphosis; Z53.20 Procedure and treatment not carried out because of patient's decision for unspecified reasons; Z79.899 Other long term (current) drug therapy; Z89.611 Acquired absence of right leg above knee; Z88.0 Allergy status to penicillin; Z88.1 Allergy status to other antibiotic agents; Z88.8 Allergy status to other drugs, medicaments and biological substances
CPT/HCPCS: 36415; 36558; 36600; 71045; 76770; 77001; 80048; 80051; 80053; 80061; 80069; 80305; 81001; 82040; 82550; 82565; 82570; 82728; 82803; 82948; 83036; 83540; 83550; 83735; 83874; 83880; 84100; 84145; 84156; 84439; 84443; 84481; 84484; 84520; 85014; 85018; 85025; 85027; 85378; 85610; 85730; 86701; 86704; 86706; 86738; 87077; 87088; 87186; 87340; 87390; 87449; 87635; 87804; 90935; 93005; 93306; 93356; 93926; 93971; 94640; 94660; 94664; 97039; C1750; C9803; G0378; J0360; J0696; J1644; J1756; J1940; J1956; J2543; J3010; J3475; J3490; J7050; Q0163

== ENCOUNTER 2023-01-10 09:42 | Observation (INO) | payer MEDICARE ==
[2023-01-09 09:37] LABS: HEMATOCRIT 33.6 % (36-48); MEAN CORPUSCULAR HEMOGLOBIN 31.7 pg (27.0-33.0); MEAN CORPUSCULAR HGB CONC 32.4 g/dL (32.0-36.0); MEAN CORPUSCULAR VOLUME 97.7 fL (79-99); RED BLOOD CELL COUNT(AUTO) 3.44 MIL/uL (4.00-5.50); RED CELL DISTRIBUTION WIDTH 14.5 % (11.0-15.5); WHITE BLOOD COUNT (AUTO) 8.5 K/uL (4.8-10.8)
[2023-01-09 09:48] LABS: INR 0.93 (0.85-1.15); PROTHROMBIN TIME 10.4 SEC (9.6-11.6)
[2023-01-09 09:49] LABS: CREATININE 7.4 mg/dL (0.5-1.5); POTASSIUM 4.9 mmol/L (3.5-5.1)
[2023-01-09 09:50] LABS: PARTIAL THROMBOPLASTIN TIME 30.4 SEC (26.3-35.5)
[2023-01-09 10:15] VITALS: BP 136/60
[2023-01-10] VITALS (23 sets, daily range): BP systolic 108–190; BP diastolic 46–83
[~2023-01-10] VITALS: Ht 170.2 cm; Wt 133.2 kg
[~2023-01-10 09:42] MED LIST changes: -HYDR12.54 PO; +LABE100T7 PO; +LANT10005 PO; +LATA2.5D14 OU; +LINA5TAB PO; -METF-446 PO; -METO25TA6 PO
[2023-01-10] MEDS ORDERED: CEFAZOLIN SODIUM 1 GM VIAL ONE (09:50)
[2023-01-10] MEDS ORDERED: 0.9% NACL 500ML IV.SOLN 500 ML IV ONE (10:20)
[2023-01-10] MEDS ORDERED: VANCOMYCIN 1G/250ML KIT 250 ML IV ONE (10:20)
[2023-01-10] MEDS ORDERED: LIDOCAINE HCL 1% 20 ML VIAL ONE (10:29)
[2023-01-10] MEDS ORDERED: BUPIVACAINE/PF 0.25% 30ML VIAL IJ ONE ×2 (10:30→13:05)
[2023-01-10 11:02] LABS: CREATININE 4.8 mg/dL (0.5-1.5); POTASSIUM 4.4 mmol/L (3.5-5.1)
[2023-01-10] MEDS ORDERED: MIDAZOLAM HCL 1 MG/ML 2ML VIAL ONE ×2 (11:45→13:39)
[2023-01-10] MEDS ORDERED: ROCURONIUM 10MG/1ML SYR 10 MG/ML ML ONE (11:47)
[2023-01-10] MEDS ORDERED: PROPOFOL 10 MG/ML 20ML VIAL IV ONE (11:47)
[2023-01-10] MEDS ORDERED: FENTANYL CITRATE PF 50 MCG/1 ML 2ML VIAL ONE (11:47)
[2023-01-10] MEDS ORDERED: VANCOMYCIN KIT 1 GM/250 ML IV.KIT IV ONE (11:50)
[2023-01-10] MEDS ORDERED: CLINDAMYCIN IVPB 600MG/50ML 50 ML IV ONE (12:18)
[2023-01-10] MEDS ORDERED: PHENYLEPHRINE HCL 10 MG/ML 1ML VIAL IV ONE (12:19)
[2023-01-10] MEDS ORDERED: HEPARIN 10,000 UNIT/10ML (1,000 UNIT/ML) VIAL ONE (12:58)
[2023-01-10] MEDS ORDERED: DEXTROSE 50%-WATER 50 ML DISP.SYRIN IV PRN (13:00)
[2023-01-10] MEDS ORDERED: TRAMADOL HCL 50 MG TABLET PO PRN ×2 (13:00)
[2023-01-10] MEDS ORDERED: ACETAMINOPHEN 325 MG TAB PO PRN ×2 (13:00)
[2023-01-10] MEDS ORDERED: GLUCAGON 1MG KIT 1 MG ML IM PRN (13:00)
[2023-01-10] MEDS ORDERED: LACTULOSE 20 GM/30 ML UDCUP PO PRN (13:00)
[2023-01-10] MEDS ORDERED: ONDANSETRON 4MG INJ IVP PRN (13:00)
[2023-01-10] MEDS ORDERED: LIDOCAINE HCL 1% 10 ML VIAL INJ ONE (13:05)
[2023-01-10] MEDS ORDERED: NEOSTIGMINE 5MG/5ML SYR IV ONE (13:06)
[2023-01-10] MEDS ORDERED: GLYCOPYRROLATE 1 MG/5 ML SYRINGE ONE (13:06)
[2023-01-10] MEDS ORDERED: PROTAMINE SULFATE 10 MG/ML 5 ML VIAL ONE (13:20)
[2023-01-10] MEDS ORDERED: LIDOCAINE HCL-MPF 2% 10ML AMP IJ ONE (13:20)
[2023-01-10] MEDS ORDERED: EPINEPHRINE PF 1MG (1:1,000) 1 MG/ML AMP ONE (13:38)
[2023-01-10] MEDS ORDERED: RACEPINEPHRINE HCL 2.25% 0.5 ML NEB SOLN NEB SCH (14:00)
[2023-01-10] MEDS: HYDRALAZINE 20MG/ML VIAL IV PRN ×2 (14:01→16:54)
[2023-01-10] MEDS ORDERED: EPINEPHRINE PF 1MG (1:1,000) 1 MG/ML AMP IH PRN (15:00)
[2023-01-10] MEDS: INSULIN HUMULIN R 100 UNIT/ML 3ML SQ SCH ×2 (16:30→21:20)
[2023-01-10] MEDS: LANTHANUM CARBONATE PO SCH ×2 (16:54→21:00)
[2023-01-10] MEDS: LATANOPROST 2.5 ML DROPS OU SCH (21:00)
[2023-01-10] MEDS: DOCUSATE SODIUM 100 MG CAP PO SCH (21:00)
[2023-01-10] MEDS ORDERED: FAMOTIDINE 20MG TAB PO SCH (21:00)
[2023-01-11] VITALS (21 sets, daily range): BP systolic 96–152; BP diastolic 42–90
[2023-01-11] MEDS: INSULIN HUMULIN R 100 UNIT/ML 3ML SQ SCH ×4 (06:31→20:27)
[2023-01-11] MEDS: DOCUSATE SODIUM 100 MG CAP PO SCH ×2 (08:21→20:26)
[2023-01-11] MEDS: LANTHANUM CARBONATE PO SCH ×3 (09:00→20:27)
[2023-01-11] MEDS: LATANOPROST 2.5 ML DROPS OU SCH (20:26)
[2023-01-11] MEDS ORDERED: HEPARIN 5,000 UNIT VIAL IRRIG PRN (21:30)
[2023-01-12 04:40] LABS: HEPATITIS B SURFACE ANTIGEN Non-Reactive (Nonreactive)
== END 2023-01-11 22:16 | disposition home or self-care (01) ==
LOC: DAH 09:42 → DAHIP 09:43 → DAH 09:43 → EEVIPCON 15:00 → 3CH 16:56
PROVIDERS: ADMIT Thoracic Surgery (Cardiothoracic Vascular Surgery); ATTEND Thoracic Surgery (Cardiothoracic Vascular Surgery)
DX: I12.0 Hypertensive chronic kidney disease with stage 5 chronic kidney disease or end stage renal disease (principal); Z20.822 Contact with and (suspected) exposure to COVID-19; E11.22 Type 2 diabetes mellitus with diabetic chronic kidney disease; N18.6 End stage renal disease; E11.51 Type 2 diabetes mellitus with diabetic peripheral angiopathy without gangrene; E66.01 Morbid (severe) obesity due to excess calories; Z99.2 Dependence on renal dialysis; Z79.899 Other long term (current) drug therapy
CPT/HCPCS: 80048 ×2; 84703; 85027; 85610; 85730; 86850; 86900; 86901; 87426; 36415 ×3; 71045; 93005; 36821; 96374; 82948 ×8; 94640; 86706; 87340; 86704; A6260; G0378 ×29; A4663; A6207; J7030; A4452; J7040; J3010; J0690; J3490 ×6; J2710; J2720; J0171; J0360; J1644 ×3; J2250 ×2; J2704; J3370 ×2; J2370; G0168; A4649 ×3; C1713 ×2; A4930; A4215; A4223; A4222; A4221; 90935

== ENCOUNTER 2023-05-14 15:42 | Emergency (ER) | payer MEDICARE ==
[~2023-05-14] VITALS: Ht 172.7 cm; Wt 131.5 kg
[2023-05-14 17:18] LABS: SARS-CoV-2, RNA, NAAT NEGATIVE SARS CoV-2 (NEGATIVE)
[2023-05-14 17:21] LABS: INFLUENZA TYPE A Negative For Type A (NEGATIVE); INFLUENZA TYPE B Negative For Type B (NEGATIVE); RAPID GROUP A STREP negative (NEGATIVE)
[2023-05-14 19:31] LABS: BASOPHILS # (AUTO) 0.03 K/uL (0.00-0.20); BASOPHILS % (AUTO) 0.4 % (0.0-5.0); EOSINOPHILS # (AUTO) 0.25 K/uL (0.00-0.70); HEMATOCRIT 34.7 % (36-48); IMMATURE GRANULOCYTE ABSOLUTE 0.03 K/uL (0-1); LYMPHOCYTES # (AUTO) 1.6 K/uL (1.0-4.8); MEAN CORPUSCULAR HEMOGLOBIN 32.1 pg (27.0-33.0); MEAN CORPUSCULAR HGB CONC 32.6 g/dL (32.0-36.0); MEAN CORPUSCULAR VOLUME 98.6 fL (79-99); MONOCYTES # (AUTO) 0.4 K/uL (0.1-1.0); MONOCYTES % (AUTO) 4.4 % (3.0-13.0); NEUTROPHILS # (AUTO) 6.1 K/uL (1.8-7.7); NEUTROPHILS % (AUTO) 72.8 % (40.0-77.0); PLATELET COUNT (AUTO) 167 K/uL (130-400); RED BLOOD CELL COUNT(AUTO) 3.52 MIL/uL (4.00-5.50); RED CELL DISTRIBUTION WIDTH 13.7 % (11.0-15.5); WHITE BLOOD COUNT (AUTO) 8.4 K/uL (4.8-10.8)
[2023-05-14 19:45] LABS: CREATININE 6.1 mg/dL (0.5-1.5); POTASSIUM 3.6 mmol/L (3.5-5.1)
[2023-05-14 19:51] LABS: ALBUMIN 3.3 g/dL (3.5-5.0); BILIRUBIN,TOTAL 0.3 mg/dL (0.2-1.0); TOTAL PROTEIN, SERUM 7.9 g/dL (6.0-8.3)
[2023-05-14 19:51] LABS: APPEARANCE,URINE CLEAR (CLEAR); BILIRUBIN,URINE NEGATIVE (NEGATIVE); COLOR,URINE LIGHT-YELLOW (YELLOW); GLUCOSE, URINE (UA) 300 mg/dL (NEGATIVE); KETONES,URINE NEGATIVE (NEGATIVE); LEUKOCYTE ESTERASE ,URINE NEGATIVE Leu/uL (NEGATIVE); NITRATE,URINE NEGATIVE (NEGATIVE); OCCULT BLOOD,URINE SMALL (NEGATIVE); PH,URINE 7.5 (5.0-8.0); PROTEIN,URINE 300 mg/dL (NEGATIVE); UROBILINOGEN,URINE 0.2 mg/dL (0.2-1.0)
[2023-05-14 20:05] LABS: ADD UA MICROSCOPIC YES
[2023-05-14 20:08] LABS: BACTERIA,URINE RARE /HPF (None Seen); SQUAMOUS EPITHELIAL CELL,UR RARE /HPF (0-2)
[2023-05-14] MEDS ORDERED: IBUPROFEN 400 MG TABLET ONE (22:20)
[2023-05-14] MEDS ORDERED: IBUPROFEN 200 MG TAB PO ONE (22:30)
[2023-05-14] MEDS ORDERED: ALBUHFA IH (22:31)
[2023-05-14] MEDS ORDERED: AZIT500T2 PO (22:31)
[2023-05-14 22:37] VITALS: BP 122/50; PULSE 78; RESP 18; O2SAT 98
== END 2023-05-14 23:00 | disposition home or self-care (01) ==
LOC: EDH 15:42
DX: J06.9 Acute upper respiratory infection, unspecified (principal); R05.9 Cough, unspecified; E11.9 Type 2 diabetes mellitus without complications; I10 Essential (primary) hypertension; E66.01 Morbid (severe) obesity due to excess calories; Z79.84 Long term (current) use of oral hypoglycemic drugs; Z88.0 Allergy status to penicillin; Z88.1 Allergy status to other antibiotic agents; Z88.2 Allergy status to sulfonamides; Z89.611 Acquired absence of right leg above knee; Z90.49 Acquired absence of other specified parts of digestive tract; Z99.2 Dependence on renal dialysis; Z20.822 Contact with and (suspected) exposure to COVID-19
CPT/HCPCS: 99284; 71045; 87635; 80053; 85025; 87880; 87804 ×2; 81001; 36415; C9803

== ENCOUNTER 2023-09-10 16:14 | Inpatient (IN) | payer MEDICARE, OTHER ==
[~2023-09-10] VITALS: Ht 170.2 cm; Wt 133.8 kg
[~2023-09-10 16:14] MED LIST changes: +ALBUHFA IH; +AZIT500T2 PO
[2023-09-10 16:52] LABS: MEAN CORPUSCULAR HGB CONC 33.7 g/dL (32.0-36.0); MEAN CORPUSCULAR VOLUME 94.9 fL (79-99); RED BLOOD CELL COUNT(AUTO) 3.69 MIL/uL (4.00-5.50); WHITE BLOOD COUNT (AUTO) 10.5 K/uL (4.8-10.8)
[2023-09-10 17:05] LABS: CREATININE 4.8 mg/dL (0.5-1.5); POTASSIUM 3.3 mmol/L (3.5-5.1)
[2023-09-10 17:09] LABS: ALBUMIN 2.8 g/dL (3.5-5.0); BILIRUBIN,TOTAL 0.8 mg/dL (0.2-1.0); TOTAL PROTEIN, SERUM 7.2 g/dL (6.0-8.3)
[2023-09-10 20:26] LABS: SARS-CoV-2, RNA, NAAT NEGATIVE SARS CoV-2 (NEGATIVE)
[2023-09-10] MEDS: ONDANSETRON 4MG INJ IVP ONE (20:26)
[2023-09-10] MEDS: HYOSCYAMINE SULFATE 0.125 MG TAB.SUBL SL ONE (20:26)
[2023-09-10 20:31] LABS: INFLUENZA TYPE A Negative For Type A (NEGATIVE); INFLUENZA TYPE B Negative For Type B (NEGATIVE)
[2023-09-10 21:16] LABS: APPEARANCE,URINE CLEAR (CLEAR); BILIRUBIN,URINE SMALL mg/dL (NEGATIVE); COLOR,URINE YELLOW (YELLOW); GLUCOSE, URINE (UA) 250 mg/dL (NEGATIVE); KETONES,URINE 5 mg/dL (NEGATIVE); LEUKOCYTE ESTERASE ,URINE NEGATIVE Leu/uL (NEGATIVE); NITRATE,URINE NEGATIVE (NEGATIVE); OCCULT BLOOD,URINE TRACE-INTACT (NEGATIVE); PH,URINE 6.5 (5.0-8.0); PROTEIN,URINE >=300 mg/dL (NEGATIVE); UROBILINOGEN,URINE 0.2 mg/dL (0.2-1.0)
[2023-09-10 21:22] LABS: ADD UA MICROSCOPIC YES
[2023-09-10 21:28] LABS: BACTERIA,URINE FEW /HPF (None Seen); SQUAMOUS EPITHELIAL CELL,UR RARE /HPF (0-2)
[2023-09-11] VITALS (23 sets, daily range): BP systolic 112–164; BP diastolic 50–103; PULSE 57–92; RESP 14–20; TEMP 98–98.8; O2SAT 100
[2023-09-11] MEDS ORDERED: IOHEXOL 350 MG/ML 100ML INFUS..BTL IV ONE (01:44)
[2023-09-11] MEDS ORDERED: OMEP40CA21 PO (02:36)
[2023-09-11] MEDS ORDERED: DIPH1TAB PO (02:36)
[2023-09-11] MEDS ORDERED: ONDA-104 PO (02:36)
[2023-09-11] MEDS ORDERED: POTASSIUM CHLORIDE 10% ELIXIR 20 MEQ/15 ML UDCUP PO PRN (05:30)
[2023-09-11] MEDS ORDERED: MORPHINE 2 MG SYG IVP PRN (05:30)
[2023-09-11] MEDS ORDERED: POTASSIUM CHLORIDE 10MEQ/100ML 100 ML IV PRN (05:30)
[2023-09-11 07:09] LABS: BASOPHILS # (AUTO) 0.07 K/uL (0.00-0.20); BASOPHILS % (AUTO) 0.7 % (0.0-5.0); EOSINOPHILS # (AUTO) 0.14 K/uL (0.00-0.70); EOSINOPHILS % (AUTO) 1.5 % (0.0-8.0); HEMATOCRIT 37.1 % (36-48); IMMATURE GRANULOCYTE ABSOLUTE 0.04 K/uL (0-1); LYMPHOCYTES % (AUTO) 10.1 % (21.0-51.0); MEAN CORPUSCULAR HEMOGLOBIN 31.3 pg (27.0-33.0); MEAN CORPUSCULAR HGB CONC 32.3 g/dL (32.0-36.0); MEAN CORPUSCULAR VOLUME 96.6 fL (79-99); MONOCYTES # (AUTO) 0.5 K/uL (0.1-1.0); MONOCYTES % (AUTO) 5.1 % (3.0-13.0); NEUTROPHILS # (AUTO) 7.9 K/uL (1.8-7.7); NEUTROPHILS % (AUTO) 82.2 % (40.0-77.0); PLATELET COUNT (AUTO) 166 K/uL (130-400); RED BLOOD CELL COUNT(AUTO) 3.84 MIL/uL (4.00-5.50); WHITE BLOOD COUNT (AUTO) 9.6 K/uL (4.8-10.8)
[2023-09-11 07:29] LABS: HEMOGLOBIN A1C 8.1 % (4.0-6.0)
[2023-09-11 07:31] LABS: ALBUMIN 2.7 g/dL (3.5-5.0); CREATININE 4.9 mg/dL (0.5-1.5); MAGNESIUM 2.1 mg/dL (1.80-2.40); PHOSPHORUS 3.3 mg/dL (2.5-4.9); POTASSIUM 3.6 mmol/L (3.5-5.1); TOTAL PROTEIN, SERUM 7.1 g/dL (6.0-8.3)
[2023-09-11] MEDS: LOPERAMIDE HCL 2 MG CAP PO PRN (13:43)
[2023-09-11] MEDS: INSULIN HUMULIN R 100 UNIT/ML 3ML SQ SCH (16:31)
[2023-09-11] MEDS: LATANOPROST 2.5 ML DROPS OU SCH (21:00)
[2023-09-11] MEDS: LABETALOL HCL 100 MG TABLET PO SCH (21:00)
[2023-09-12] VITALS (28 sets, daily range): BP systolic 112–175; BP diastolic 59–96; PULSE 73–86; RESP 15–20; O2SAT 95–98
[2023-09-12 04:07] LABS: HEPATITIS B CORE AB TOTAL Non-Reactive (Nonreactive); HEPATITIS B SURFACE ANTIBODY Positive (Reactive); HEPATITIS B SURFACE ANTIGEN Non-Reactive (Nonreactive)
[2023-09-12] MEDS: LINAGLIPTIN 5 MG TABLET PO SCH (09:00)
[2023-09-12 09:39] LABS: INR 0.94 (0.85-1.15)
[2023-09-12 09:41] LABS: PARTIAL THROMBOPLASTIN TIME 30.5 SEC (26.3-35.5)
[2023-09-12] MEDS ORDERED: KETAMINE 50MG/ML SYRINGE 50 MG/ML DISP.SYRIN ONE (12:25)
[2023-09-12] MEDS ORDERED: LIDOCAINE HCL 1% 10 ML VIAL ONE (12:25)
[2023-09-12] MEDS ORDERED: MIDAZOLAM HCL 1 MG/ML 2ML VIAL ONE (12:25)
[2023-09-12] MEDS ORDERED: ONDANSETRON 4MG INJ ONE (12:25)
[2023-09-12] MEDS ORDERED: PROPOFOL 10 MG/ML 20ML VIAL IV ONE (12:25)
[2023-09-12] MEDS: LACTULOSE 20 GM/30 ML UDCUP PO ONE ×2 (17:08→21:26)
[2023-09-12] MEDS: BISACODYL 5 MG TABLET.DR PO ONE ×2 (17:09→21:26)
[2023-09-12] MEDS: PEG 3350/NA SULF,BICARB,CL/KCL 4000 ML SOLN PO ONE (17:47)
[2023-09-12] MEDS: CLONIDINE HCL 0.1 MG TABLET PO PRN (17:49)
[2023-09-13] VITALS (31 sets, daily range): BP systolic 99–157; BP diastolic 55–93; PULSE 71–87; RESP 14–20; TEMP 98–98.2; O2SAT 98–100
[2023-09-13 05:47] LABS: HEMATOCRIT 35.3 % (36-48); MEAN CORPUSCULAR HGB CONC 32.3 g/dL (32.0-36.0); MEAN CORPUSCULAR VOLUME 95.9 fL (79-99); RED BLOOD CELL COUNT(AUTO) 3.68 MIL/uL (4.00-5.50); WHITE BLOOD COUNT (AUTO) 9.6 K/uL (4.8-10.8)
[2023-09-13 06:22] LABS: CREATININE 5.5 mg/dL (0.5-1.5); POTASSIUM 3.7 mmol/L (3.5-5.1)
[2023-09-13] MEDS: LACTULOSE 20 GM/30 ML UDCUP PO ONE (16:30)
[2023-09-13] MEDS: PEG 3350/NA SULF,BICARB,CL/KCL 4000 ML SOLN PO ONE (16:30)
[2023-09-14] VITALS (22 sets, daily range): BP systolic 104–162; BP diastolic 52–88; PULSE 72–89; RESP 15–20; O2SAT 96–100
[2023-09-14 10:08] LABS: BASOPHILS # (AUTO) 0.06 K/uL (0.00-0.20); BASOPHILS % (AUTO) 0.5 % (0.0-5.0); EOSINOPHILS # (AUTO) 0.12 K/uL (0.00-0.70); EOSINOPHILS % (AUTO) 1.1 % (0.0-8.0); HEMATOCRIT 36.7 % (36-48); IMMATURE GRANULOCYTE ABSOLUTE 0.05 K/uL (0-1); LYMPHOCYTES # (AUTO) 1.1 K/uL (1.0-4.8); LYMPHOCYTES % (AUTO) 10.3 % (21.0-51.0); MEAN CORPUSCULAR HEMOGLOBIN 31.7 pg (27.0-33.0); MEAN CORPUSCULAR VOLUME 96.1 fL (79-99); MONOCYTES # (AUTO) 0.6 K/uL (0.1-1.0); NEUTROPHILS % (AUTO) 82.6 % (40.0-77.0); PLATELET COUNT (AUTO) 139 K/uL (130-400); RED BLOOD CELL COUNT(AUTO) 3.82 MIL/uL (4.00-5.50); WHITE BLOOD COUNT (AUTO) 10.9 K/uL (4.8-10.8)
[2023-09-14 10:20] LABS: ALBUMIN 2.9 g/dL (3.5-5.0); BILIRUBIN,TOTAL 1.5 mg/dL (0.2-1.0); CREATININE 5.2 mg/dL (0.5-1.5); MAGNESIUM 1.9 mg/dL (1.80-2.40); POTASSIUM 3.6 mmol/L (3.5-5.1); TOTAL PROTEIN, SERUM 7.4 g/dL (6.0-8.3)
[2023-09-14] MEDS: DIPHENHYDRAMINE 2% CREAM 30 GM TP PRN (13:37)
[2023-09-14] MEDS ORDERED: LIDOCAINE PF 100MG/5ML (2%) SYRINGE 5ML ONE (14:07)
[2023-09-14] MEDS ORDERED: PROPOFOL 10 MG/ML 20ML VIAL IV ONE (14:07)
[2023-09-14] MEDS ORDERED: MIDAZOLAM HCL 1 MG/ML 2ML VIAL ONE (14:07)
[2023-09-14] MEDS ORDERED: KETAMINE 50MG/ML SYRINGE 50 MG/ML DISP.SYRIN ONE (14:07)
[2023-09-14] MEDS: KCL 20 MEQ ERTAB PO PRN (20:22)
[2023-09-14] MEDS: MAGNESIUM 2GM PREMIX 50ML 50 ML IV PRN (20:23)
[2023-09-14] MEDS: HYDROCORTISONE 25 MG SUPPOSITORY PR SCH (20:23)
[2023-09-14] MEDS ORDERED: HYDROCORTISONE 25 MG SUPPOSITORY PR SCH (21:00)
[2023-09-14] MEDS: FLUTICASONE PROPIONATE 50MCG/SPRAY 16 GM BOTTLE EN SCH (21:31)
[2023-09-15] VITALS (22 sets, daily range): BP systolic 107–166; BP diastolic 61–87; PULSE 71–92; RESP 14–19; TEMP 98.2–98.6; O2SAT 96–98
[2023-09-15 06:58] LABS: HEMATOCRIT 34.8 % (36-48); MEAN CORPUSCULAR HEMOGLOBIN 31.6 pg (27.0-33.0); MEAN CORPUSCULAR HGB CONC 33.3 g/dL (32.0-36.0); MEAN CORPUSCULAR VOLUME 94.8 fL (79-99); RED BLOOD CELL COUNT(AUTO) 3.67 MIL/uL (4.00-5.50); WHITE BLOOD COUNT (AUTO) 9.6 K/uL (4.8-10.8)
[2023-09-15 07:54] LABS: ALBUMIN 2.7 g/dL (3.5-5.0); BILIRUBIN,TOTAL 1.4 mg/dL (0.2-1.0); CREATININE 6.3 mg/dL (0.5-1.5); MAGNESIUM 2.6 mg/dL (1.80-2.40); POTASSIUM 3.8 mmol/L (3.5-5.1); TOTAL PROTEIN, SERUM 6.9 g/dL (6.0-8.3)
[2023-09-15] MEDS: PANTOPRAZOLE 40 MG TAB DR PO SCH (09:26)
[2023-09-15] MEDS: BALSAM PERU/CASTOR OIL 60 GM TUBE TP SCH (23:41)
[2023-09-16] VITALS (8 sets, daily range): BP systolic 120–152; BP diastolic 56–96; PULSE 72–85; RESP 17–22; O2SAT 98
[2023-09-17] VITALS (9 sets, daily range): BP systolic 118–159; BP diastolic 57–76; PULSE 65–79; RESP 16–20; O2SAT 96–98
[2023-09-17 05:08] LABS: HEMATOCRIT 35.9 % (36-48); MEAN CORPUSCULAR HEMOGLOBIN 31.5 pg (27.0-33.0); MEAN CORPUSCULAR HGB CONC 32.3 g/dL (32.0-36.0); MEAN CORPUSCULAR VOLUME 97.6 fL (79-99); RED BLOOD CELL COUNT(AUTO) 3.68 MIL/uL (4.00-5.50); RED CELL DISTRIBUTION WIDTH 13.2 % (11.0-15.5)
[2023-09-17 05:30] LABS: ALBUMIN 2.6 g/dL (3.5-5.0); BILIRUBIN,TOTAL 1.3 mg/dL (0.2-1.0); MAGNESIUM 2.4 mg/dL (1.80-2.40); POTASSIUM 3.7 mmol/L (3.5-5.1); TOTAL PROTEIN, SERUM 7.1 g/dL (6.0-8.3)
[2023-09-18] VITALS (9 sets, daily range): BP systolic 114–143; BP diastolic 55–92; PULSE 68–79; RESP 14–20; TEMP 98.5; O2SAT 96–98
[2023-09-18 05:45] LABS: BASOPHILS # (AUTO) 0.08 K/uL (0.00-0.20); BASOPHILS % (AUTO) 0.8 % (0.0-5.0); EOSINOPHILS # (AUTO) 0.25 K/uL (0.00-0.70); EOSINOPHILS % (AUTO) 2.4 % (0.0-8.0); HEMATOCRIT 36.5 % (36-48); IMMATURE GRANULOCYTE ABSOLUTE 0.04 K/uL (0-1); LYMPHOCYTES # (AUTO) 1.2 K/uL (1.0-4.8); LYMPHOCYTES % (AUTO) 11.4 % (21.0-51.0); MEAN CORPUSCULAR HEMOGLOBIN 31.5 pg (27.0-33.0); MEAN CORPUSCULAR HGB CONC 31.8 g/dL (32.0-36.0); MEAN CORPUSCULAR VOLUME 99.2 fL (79-99); MONOCYTES # (AUTO) 0.7 K/uL (0.1-1.0); MONOCYTES % (AUTO) 6.4 % (3.0-13.0); NEUTROPHILS % (AUTO) 78.6 % (40.0-77.0); PLATELET COUNT (AUTO) 147 K/uL (130-400); RED BLOOD CELL COUNT(AUTO) 3.68 MIL/uL (4.00-5.50); RED CELL DISTRIBUTION WIDTH 13.2 % (11.0-15.5); WHITE BLOOD COUNT (AUTO) 10.2 K/uL (4.8-10.8)
[2023-09-18 06:12] LABS: ALBUMIN 2.7 g/dL (3.5-5.0); BILIRUBIN,TOTAL 1.3 mg/dL (0.2-1.0); CREATININE 7.4 mg/dL (0.5-1.5); MAGNESIUM 2.4 mg/dL (1.80-2.40); POTASSIUM 3.5 mmol/L (3.5-5.1); TOTAL PROTEIN, SERUM 7.3 g/dL (6.0-8.3)
[2023-09-18] MEDS: ACETAMINOPHEN 325 MG TAB PO PRN (22:59)
[2023-09-19] VITALS (20 sets, daily range): BP systolic 107–174; BP diastolic 49–92; PULSE 68–87; RESP 17–20; TEMP 97.8–98; O2SAT 98–100
[2023-09-19 06:09] LABS: BASOPHILS # (AUTO) 0.08 K/uL (0.00-0.20); BASOPHILS % (AUTO) 0.9 % (0.0-5.0); EOSINOPHILS # (AUTO) 0.21 K/uL (0.00-0.70); EOSINOPHILS % (AUTO) 2.3 % (0.0-8.0); HEMATOCRIT 34.6 % (36-48); IMMATURE GRANULOCYTE ABSOLUTE 0.04 K/uL (0-1); LYMPHOCYTES # (AUTO) 1.1 K/uL (1.0-4.8); LYMPHOCYTES % (AUTO) 11.7 % (21.0-51.0); MEAN CORPUSCULAR HEMOGLOBIN 31.5 pg (27.0-33.0); MEAN CORPUSCULAR HGB CONC 32.4 g/dL (32.0-36.0); MEAN CORPUSCULAR VOLUME 97.2 fL (79-99); MONOCYTES # (AUTO) 0.6 K/uL (0.1-1.0); MONOCYTES % (AUTO) 6.1 % (3.0-13.0); NEUTROPHILS # (AUTO) 7.1 K/uL (1.8-7.7); NEUTROPHILS % (AUTO) 78.6 % (40.0-77.0); PLATELET COUNT (AUTO) 142 K/uL (130-400); RED BLOOD CELL COUNT(AUTO) 3.56 MIL/uL (4.00-5.50); RED CELL DISTRIBUTION WIDTH 13.3 % (11.0-15.5); WHITE BLOOD COUNT (AUTO) 9.1 K/uL (4.8-10.8)
[2023-09-19 06:23] LABS: CREATININE 7.3 mg/dL (0.5-1.5); MAGNESIUM 2.1 mg/dL (1.80-2.40); POTASSIUM 3.7 mmol/L (3.5-5.1)
[2023-09-19] MEDS: NYSTATIN 15 GM POWDER TP SCH (21:50)
[2023-09-19] MEDS: ONDANSETRON 4MG INJ IVP PRN (23:03)
[2023-09-20] VITALS (11 sets, daily range): BP systolic 110–160; BP diastolic 48–77; PULSE 68–89; RESP 16–20; O2SAT 98
[2023-09-20 05:19] LABS: BASOPHILS # (AUTO) 0.09 K/uL (0.00-0.20); BASOPHILS % (AUTO) 0.9 % (0.0-5.0); EOSINOPHILS # (AUTO) 0.18 K/uL (0.00-0.70); EOSINOPHILS % (AUTO) 1.7 % (0.0-8.0); HEMATOCRIT 35.7 % (36-48); IMMATURE GRANULOCYTE ABSOLUTE 0.05 K/uL (0-1); LYMPHOCYTES # (AUTO) 1.1 K/uL (1.0-4.8); LYMPHOCYTES % (AUTO) 10.2 % (21.0-51.0); MEAN CORPUSCULAR HEMOGLOBIN 31.2 pg (27.0-33.0); MEAN CORPUSCULAR HGB CONC 31.7 g/dL (32.0-36.0); MEAN CORPUSCULAR VOLUME 98.6 fL (79-99); MONOCYTES # (AUTO) 0.6 K/uL (0.1-1.0); MONOCYTES % (AUTO) 5.7 % (3.0-13.0); NEUTROPHILS # (AUTO) 8.5 K/uL (1.8-7.7); PLATELET COUNT (AUTO) 149 K/uL (130-400); RED BLOOD CELL COUNT(AUTO) 3.62 MIL/uL (4.00-5.50); RED CELL DISTRIBUTION WIDTH 13.4 % (11.0-15.5); WHITE BLOOD COUNT (AUTO) 10.5 K/uL (4.8-10.8)
[2023-09-20 05:33] LABS: CREATININE 5.8 mg/dL (0.5-1.5); MAGNESIUM 2.3 mg/dL (1.80-2.40); POTASSIUM 3.5 mmol/L (3.5-5.1)
[2023-09-20] MEDS ORDERED: FENTANYL CITRATE PF 50 MCG/1 ML 2ML VIAL ONE (13:26)
[2023-09-20] MEDS ORDERED: MIDAZOLAM HCL 1 MG/ML 2ML VIAL ONE (13:27)
== END 2023-09-20 21:00 | disposition home health service (06) | DRG 435 ==
LOC: EEVIPCON 16:14 → EDH 16:14 → EDHIP 09-11 05:04 → EEVIPCON 09-11 05:04 → WSH 09-11 08:37 → 3CH 09-15 18:15 → 3DH 09-20 04:30
PROVIDERS: ADMIT Internal Medicine Infectious Disease; ATTEND Internal Medicine Infectious Disease
PROC: 0BBK3ZX Excision of Right Lung, Percutaneous Approach, Diagnostic (ICD-10-PCS; 2023-09-11)
PROC: 5A1D70Z Performance of Urinary Filtration, Intermittent, Less than 6 Hours Per Day (ICD-10-PCS; 2023-09-11)
PROC: 0DB98ZX Excision of Duodenum, Via Natural or Artificial Opening Endoscopic, Diagnostic (ICD-10-PCS; principal; 2023-09-12)
PROC: 0DB68ZX Excision of Stomach, Via Natural or Artificial Opening Endoscopic, Diagnostic (ICD-10-PCS; 2023-09-12)
PROC: 0DB58ZX Excision of Esophagus, Via Natural or Artificial Opening Endoscopic, Diagnostic (ICD-10-PCS; 2023-09-12)
PROC: 5A1D70Z Performance of Urinary Filtration, Intermittent, Less than 6 Hours Per Day (ICD-10-PCS; 2023-09-13)
PROC: 0DJD8ZZ Inspection of Lower Intestinal Tract, Via Natural or Artificial Opening Endoscopic (ICD-10-PCS; 2023-09-14)
PROC: 5A1D70Z Performance of Urinary Filtration, Intermittent, Less than 6 Hours Per Day (ICD-10-PCS; 2023-09-15)
PROC: 5A1D70Z Performance of Urinary Filtration, Intermittent, Less than 6 Hours Per Day (ICD-10-PCS; 2023-09-18)
PROC: 5A1D70Z Performance of Urinary Filtration, Intermittent, Less than 6 Hours Per Day (ICD-10-PCS; 2023-09-19)
PROC: 0BBL3ZX Excision of Left Lung, Percutaneous Approach, Diagnostic (ICD-10-PCS; 2023-09-20)
DX: C25.9 Malignant neoplasm of pancreas, unspecified (principal); N18.6 End stage renal disease; A09 Infectious gastroenteritis and colitis, unspecified; C78.7 Secondary malignant neoplasm of liver and intrahepatic bile duct; I12.0 Hypertensive chronic kidney disease with stage 5 chronic kidney disease or end stage renal disease; Z68.42 Body mass index [BMI] 45.0-49.9, adult; D63.1 Anemia in chronic kidney disease; R16.0 Hepatomegaly, not elsewhere classified; E11.22 Type 2 diabetes mellitus with diabetic chronic kidney disease; E66.01 Morbid (severe) obesity due to excess calories; I25.10 Atherosclerotic heart disease of native coronary artery without angina pectoris; Z20.822 Contact with and (suspected) exposure to COVID-19; K21.00 Gastro-esophageal reflux disease with esophagitis, without bleeding; K26.9 Duodenal ulcer, unspecified as acute or chronic, without hemorrhage or perforation; K64.1 Second degree hemorrhoids; D50.9 Iron deficiency anemia, unspecified; E87.6 Hypokalemia; K29.00 Acute gastritis without bleeding; Z99.2 Dependence on renal dialysis; Z82.49 Family history of ischemic heart disease and other diseases of the circulatory system; Z83.3 Family history of diabetes mellitus; Z87.442 Personal history of urinary calculi; Z88.0 Allergy status to penicillin; Z89.611 Acquired absence of right leg above knee
CPT/HCPCS: 36415; 43239; 45378; 47000; 74177; 76770; 76942; 80048; 80053; 81001; 82105; 82270; 82378; 82948; 83036; 83630; 83735; 84100; 85025; 85027; 85610; 85730; 86316; 86704; 86706; 87046; 87324; 87340; 87635; 87804; 88305; 88312; 90935; 99151; 99153; A4606; G0378; J1815; J2001; J2250; J2405; J2704; J3010; J3475; J3490; J7030; Q9967; A4215; A4222; A4223; A4620; A4657; C2615

== ENCOUNTER 2023-11-04 12:51 | Emergency (ER) | payer OTHER ==
[~2023-11-04] VITALS: Ht 167.6 cm; Wt 90.7 kg
[~2023-11-04 12:51] MED LIST changes: -ALBUHFA IH; -AZIT500T2 PO; -LABE100T7 PO; -LANT10005 PO; -LINA5TAB PO
[2023-11-04 12:53] VITALS: BP 77/38
[2023-11-04] MEDS: ALBUTEROL 0.083% 2.5 MG/3 ML INH IH ONE (14:05)
[2023-11-04 14:09] VITALS: PULSE 84; RESP 24
[2023-11-04 14:26] LABS: BASOPHILS # (AUTO) 0.07 K/uL (0.00-0.20); BASOPHILS % (AUTO) 0.5 % (0.0-5.0); EOSINOPHILS # (AUTO) 0.07 K/uL (0.00-0.70); EOSINOPHILS % (AUTO) 0.5 % (0.0-8.0); IMMATURE GRANULOCYTE ABSOLUTE 0.08 K/uL (0-1); LYMPHOCYTES # (AUTO) 1.2 K/uL (1.0-4.8); LYMPHOCYTES % (AUTO) 8.2 % (21.0-51.0); MEAN CORPUSCULAR HEMOGLOBIN 32.1 pg (27.0-33.0); MEAN CORPUSCULAR HGB CONC 32.4 g/dL (32.0-36.0); MEAN CORPUSCULAR VOLUME 99.1 fL (79-99); MONOCYTES # (AUTO) 0.7 K/uL (0.1-1.0); MONOCYTES % (AUTO) 5.2 % (3.0-13.0); PLATELET COUNT (AUTO) 246 K/uL (130-400); RED BLOOD CELL COUNT(AUTO) 3.43 MIL/uL (4.00-5.50); RED CELL DISTRIBUTION WIDTH 14.5 % (11.0-15.5); WHITE BLOOD COUNT (AUTO) 14.2 K/uL (4.8-10.8)
[2023-11-04] MEDS: NYSTATIN 15 GM OINT TP SCH (14:30)
[2023-11-04 14:48] LABS: ALBUMIN 2.2 g/dL (3.5-5.0); BILIRUBIN,TOTAL 1.4 mg/dL (0.2-1.0); CREATININE 4.4 mg/dL (0.5-1.0); POTASSIUM 3.1 mmol/L (3.5-5.1); TOTAL PROTEIN, SERUM 6.6 g/dL (6.0-8.3)
[2023-11-04] MEDS: ACETAMINOPHEN WITH CODEINE 1 TAB TAB PO ONE (18:13)
== END 2023-11-04 19:05 | disposition short-term general hospital (02) ==
LOC: EDH 12:51
DX: I12.9 Hypertensive chronic kidney disease with stage 1 through stage 4 chronic kidney disease, or unspecified chronic kidney disease (principal); E11.22 Type 2 diabetes mellitus with diabetic chronic kidney disease; N18.9 Chronic kidney disease, unspecified; Z88.0 Allergy status to penicillin; Z88.1 Allergy status to other antibiotic agents; Z88.2 Allergy status to sulfonamides; Z99.2 Dependence on renal dialysis
CPT/HCPCS: 36415; 71045; 80053; 84484; 85025; 93005; 94640